=== PATIENT | female | born 1935 | race Caucasian/White ===

== ENCOUNTER 2017-02-20 18:24 | Inpatient (IN) | payer MEDICARE, OTHER ==
[~2017-02-20] VITALS: Ht 162.6 cm; Wt 61.2 kg
--- NOTE | 2017-02-20 18:25 | NUR ---
BBPA FROM HOME: LEFT HIP PAIN S/P Fx 2 DAYS AGO. BILATERAL KNEE PAIN.
--- NOTE | 2017-02-20 18:55 | NUR ---
EKG IN PROGRESS
--- NOTE | 2017-02-20 18:58 | NUR ---
REPULPING SUPERVISOR AT BEDSIDE
[2017-02-20] MEDS ORDERED: MORPHINE SULFATE INJ 2 MG/ML DISP.SYRIN IV ONE (19:00)
[2017-02-20] MEDS ORDERED: ONDANSETRON HCL/PF - ER 4 MG/2 ML VIAL IV ONE (19:00)
[2017-02-20 19:17] LABS: BASOPHILS # (AUTO) 0.5 /CMM (0.0-0.2); EOSINOPHILS % (AUTO) 0.1 % (0.0-6.0); HEMATOCRIT 48 % (33-45); HEMOGLOBIN 16.2 g/dL (11.5-14.8); LYMPHOCYTES # (AUTO) 2.8 /CMM (0.8-4.8); LYMPHOCYTES % (AUTO) 23.2 % (20.0-44.0); MEAN CORPUSCULAR HEMOGLOBIN 29 PG (26.0-33.0); MEAN CORPUSCULAR HGB CONC 34 g/dl (31.0-36.0); MEAN CORPUSCULAR VOLUME 87 fL (82-100); MONOCYTES # (AUTO) 0.5 /CMM (0.1-1.30); NEUTROPHILS # (AUTO) 8.5 /CMM (1.8-8.9); NEUTROPHILS % (AUTO) 68.7 % (43.0-81.0); PLATELET COUNT (AUTO) 166 /CMM (150-450); RDW COEFFICIENT OF VARIATION 14.6 (11.5-15.0); RED BLOOD CELL COUNT(AUTO) 5.57 MIL/uL (4.0-5.2); WHITE BLOOD COUNT (AUTO) 12.3 K/uL (4.3-11.0)
[2017-02-20] MEDS ORDERED: ONDANSETRON HCL/PF 4 MG/2 ML VIAL ONE (19:25)
[2017-02-20 19:26] LABS: CALCIUM, SERUM 8.2 mg/dL (8.5-10.1); CARBON DIOXIDE 23 mmol/L (21-32); CHLORIDE 101 mmol/L (98-107); CREATININE 1.1 mg/dL (0.6-1.3); GLUCOSE 125 mg/dL (74-106); POTASSIUM 3.9 mmol/L (3.5-5.1); SODIUM SERUM 135 mmol/L (136-145); UREA NITROGEN, BLOOD 41 mg/dL (7-18)
[2017-02-20] MEDS ORDERED: MORPHINE SULFATE INJ 2 MG/ML DISP.SYRIN ONE (19:26)
[2017-02-20 19:59] LABS: INR 1.03 (0.87-1.13); PROTHROMBIN TIME 10.7 SECS (9.5-12.7)
--- NOTE | 2017-02-20 20:40 | NUR ---
CALLED [employer] SENIOR TAX ANALYST WAS PAGED.
--- NOTE | 2017-02-20 20:55 | NUR ---
RECEIVED REPORT FROM ED IN THE ER.
--- NOTE | 2017-02-20 20:55 | NUR ---
REPORT CALLED TO M/S BAKARI EDDY. WILL TRANSPORT PT TO M/S ROOM [id number]
[2017-02-20] MEDS ORDERED: IV NS 0.9% 1,000 ML BAG IV ONE (21:00)
--- NOTE | 2017-02-20 21:25 | NUR ---
FRONT DESK TEAM MEMBER NOTES PT ARRIVED ON TO THE UNIT AT 2124 VIA GURNEY. PT ACCOMPANIED BY HER DAUGHTERS. PT IS PRIMARILY PARAGUAYAN SPEAKER. PT IS S/P GROUND FALL 2X DAYS AGO. AT HOME XR SHOWED FX OF LEFT HIP. PT IS CURRENTLY ON 2L OF O2 VIA NASAL CANULA, PT SAT IS 94%. PT LUNGS SOUND DIMINISHED BILATERALLY. ALL PT BELONGINGS ARE ACCOUNTED FOR AND NOTED. PT HAS A SACRAL REDNESS, A SCRATCH ON HER LEFT GROIN AREA AND A BRUISE ON HER LEFT HIP. ALL DOCUMENTED AND PICTURES ARE PLACED IN CHART. ORIENTED PT TO THE UNIT AND USE OF THE CALL LIGHT BUTTON. SAFETY PRECAUTIONS IN PLACE, BED IN LOW, LOCKED POSITION X3 SIDE RAILS UP. CALL LIGHT WITHIN REACH. WILL CONTINUE TO MONITOR.
[2017-02-20 21:30] VITALS: BP 131/74
[2017-02-20] MEDS ORDERED: ACETAMINOPHEN 325 MG TABLET PO PRN (22:30)
[2017-02-20] MEDS ORDERED: MAGNESIUM HYDROXIDE 30 ML UDC PO PRN (22:30)
[2017-02-20] MEDS ORDERED: Z GUARD REMEDY 2 OZ OINT TP PRN (22:30)
[2017-02-20] MEDS ORDERED: MORPHINE SULFATE INJ 2 MG/ML DISP.SYRIN IV PRN (22:30)
[2017-02-20] MEDS ORDERED: ENOXAPARIN SODIUM 40 MG/0.4 ML DISP.SYRIN SQ SCH (22:30)
[2017-02-20] MEDS ORDERED: ONDANSETRON HCL/PF 4 MG/2 ML VIAL IVP PRN (22:30)
[2017-02-20] MEDS ORDERED: ZOLPIDEM TARTRATE 5 MG TABLET PO PRN (22:30)
[2017-02-20] MEDS ORDERED: ENOXAPARIN SODIUM 40 MG/0.4 ML DISP.SYRIN SQ ONE (22:46)
[2017-02-20] MEDS ORDERED: HYDROCODONE/APAP 5/325MG 1 EACH TABLET ONE (23:08)
[2017-02-20] MEDS: IV NS 0.9% 1,000 ML IV PRN (23:33)
[2017-02-20] MEDS: HYDROCODONE/APAP 5/325MG 1 EACH TABLET PO PRN (23:36)
[2017-02-21] MEDS ORDERED: LEVOFLOXACIN 500 MG /D5W 100ML 500 MG in PREMIX 1 EA IV SCH (01:30)
[2017-02-21] MEDS ORDERED: IPRATROPIUM NEB FS 0.5 MG/2.5 ML AMPUL.NEB NEB PRN (01:30)
[2017-02-21] MEDS ORDERED: ALBUTEROL FS 2.5 MG/0.5 ML VIAL.NEB NEB PRN (01:30)
[2017-02-21] MEDS ORDERED: LEVOFLOXACIN 500 MG /D5W 100ML 100 ML IV ONE (01:39)
[2017-02-21] MEDS ORDERED: IPRATROPIUM NEB FS 0.5 MG/2.5 ML AMPUL.NEB ONE (03:05)
[2017-02-21] MEDS ORDERED: ACETYLCYSTEINE 10% SOLN 400 MG/4 ML VIAL ONE (03:05)
[2017-02-21] MEDS: ACETYLCYSTEINE 10% SOLN 400 MG/4 ML VIAL NEB SCH ×4 (03:06→23:30)
[2017-02-21 04:00] VITALS: BP 116/52
[2017-02-21 06:25] LABS: EOSINOPHILS % (AUTO) 0.1 % (0.0-6.0); HEMATOCRIT 46 % (33-45); HEMOGLOBIN 15.5 g/dL (11.5-14.8); LYMPHOCYTES # (AUTO) 0.9 /CMM (0.8-4.8); LYMPHOCYTES % (AUTO) 6.6 % (20.0-44.0); MEAN CORPUSCULAR HEMOGLOBIN 30 PG (26.0-33.0); MEAN CORPUSCULAR HGB CONC 34 g/dl (31.0-36.0); MEAN CORPUSCULAR VOLUME 88 fL (82-100); MONOCYTES # (AUTO) 0.2 /CMM (0.1-1.30); MONOCYTES % (AUTO) 1.4 % (2.0-12.0); NEUTROPHILS # (AUTO) 12.6 /CMM (1.8-8.9); NEUTROPHILS % (AUTO) 91.9 % (43.0-81.0); PLATELET COUNT (AUTO) 153 /CMM (150-450); RDW COEFFICIENT OF VARIATION 15.2 (11.5-15.0); RED BLOOD CELL COUNT(AUTO) 5.26 MIL/uL (4.0-5.2); WHITE BLOOD COUNT (AUTO) 13.7 K/uL (4.3-11.0)
[2017-02-21 06:47] LABS: CALCIUM, SERUM 7.9 mg/dL (8.5-10.1); CARBON DIOXIDE 23 mmol/L (21-32); CHLORIDE 103 mmol/L (98-107); CREATININE 1.4 mg/dL (0.6-1.3); GLUCOSE 151 mg/dL (74-106); MAGNESIUM 2.1 mg/dL (1.8-2.4); PHOSPHORUS 5.4 mg/dL (2.5-4.9); POTASSIUM 4.5 mmol/L (3.5-5.1); SODIUM SERUM 136 mmol/L (136-145); UREA NITROGEN, BLOOD 50 mg/dL (7-18)
[2017-02-21 06:53] LABS: CHOLESTEROL 128 mg/dL (<200); HDL CHOLESTEROL 49 mg/dL (40-60); LDL 63 mg/dL (0-99); TRIGLYCERIDES 102 mg/dL (30-150)
--- NOTE | 2017-02-21 06:55 | NUR ---
RN CLOSING NOTES PT RESTING IN BED. PT IS PRIMARILY BULGARIAN SPEAKER. PT IS S/P GROUND FALL 2X DAYS AGO. PT IS CURRENTLY ON 3L OF O2 VIA NASAL CANULA. PT LUNGS SOUND DIMINISHED BILATERALLY. PT TELE MONITORED AFIB/ AFLUTTER. PT HAS L FA #22 IV RUNNING NS @75ML/HR, PT TOLERATING FLUIDS WELL. SAFETY PRECAUTIONS IN PLACE, BED IN LOW, LOCKED POSITION X3 SIDE RAILS UP. CALL LIGHT WITHIN REACH. WILL ENDORSE TO DAYSALFT NURSE FOR CONTINUITY OF CARE.
[2017-02-21 08:00] VITALS: BP 113/51
[2017-02-21] MEDS ORDERED: DULO30CA2 PO (08:54)
[2017-02-21] MEDS ORDERED: VALS80TA2 PO (08:54)
[2017-02-21] MEDS ORDERED: ESOM40CA PO (08:54)
[2017-02-21] MEDS ORDERED: CELE200C PO (08:54)
[2017-02-21] MEDS ORDERED: OMEG-167 PO (08:55)
[2017-02-21 09:51] LABS: THYROID STIMULATING HORMONE 4.851 uIU/mL (0.358-3.74)
[2017-02-21 10:33] LABS: TROPONIN I 0.07 ng/mL (0.00-0.056)
[2017-02-21 11:42] LABS: ABG BASE EXCESS -2.3 mmol/L; ABG OXYGEN SATURATION 87.8 % (92.0-98.5); ABG PCO2 37.2 mmHg (35.0-45.0); ABG PH 7.391 (7.350-7.450); ABG PO2 56.3 mmHg (75.0-100.0); AaDO2 48.9 mmHg; COHb 0.6 % (0.5-1.5); MetHb 0.4 % (0.0-1.5); O2Hb 86.9 % (94.0-97.0); SITE, ABG Right Radial; VENT MODE, BG ROOM AIR
[2017-02-21] MEDS: IV NS 0.9% 1,000 ML IV PRN (12:13)
--- NOTE | 2017-02-21 15:30 | NUR ---
DR. PRATHER,DR. KATZ,DR. LONG IN TO SEE PT. INITIALLY NPO FOR POSSIBLE SURG. TODAY THEN SWITCHED TO TOMORROW.RAMÓNRERIC AWARE AND SPOKE TO DR. LONG.PT. APPEARS FAIRLY COMFORTABLE DVT PUMP TO RT. LEG ONLY.DR. PRATHER CALLED MIDDAY REGARDING SLIGHTLY ELEVATED TROPONIN.CLEARED PT. FOR SURGERY.CONSENT SIGNED VIA TELEPHONE PER DTR. ROMO.
[2017-02-21 16:00] VITALS: BP 149/68
--- NOTE | 2017-02-21 19:30 | NUR ---
RN OPENING NOTES PATIENT IS IN BED, ALERT AND ORIENTEDX2, COLOMBIAN/ALBANIAN SPEAKING. FAMILY PRESENT AT BEDSIDE. VS STABLE. NO C/O PAIN AT THIS TIME. NO SOB NOTED. RESPIRATIONS EVEN AND UNLABORED. ON 3L OF O2 VIA NASAL CANULA. IV ACCESS ON L FA 22G PATENT AND INTACT, INFUSING NS @75ML/HR, NO REDNESS OR INFILTRATION NOTED. PATIENT IS NPO STARTING MIDNIGHT DUE TO SURGERY. CONSENT SIGNED. BED IN LOW AND LOCKED POSITION, SIDE RAILSX2. CALL LIGHT WITHIN EASY REACH. WILL CONTINUE TO MONITOR AND ASSESS DURING THE SHIFT.
[2017-02-21 20:00] VITALS: BP 137/56
[2017-02-21] MEDS: ENOXAPARIN SODIUM 40 MG/0.4 ML DISP.SYRIN SQ SCH (20:59)
--- NOTE | 2017-02-21 21:00 | NUR ---
RN NOTES HOLD DANNYX. PATIENT IS HAVING SURGERY TOMORROW MORNING.
[2017-02-22] VITALS (25 sets, daily range): BP systolic 90–156; BP diastolic 42–128
[2017-02-22] MEDS: IV NS 0.9% 1,000 ML IV PRN ×3 (01:17→18:19)
[2017-02-22] MEDS: LEVOFLOXACIN 250 MG /D5W 50 ML 250 MG in PREMIX 1 EA IV SCH (01:31)
[2017-02-22] MEDS: MORPHINE SULFATE INJ 4 MG/ML DISP.SYRIN IV PRN (02:15)
--- NOTE | 2017-02-22 02:15 | NUR ---
RN NOTES PATIENT C/O PAIN AT LEFT HIP. MORPHINE 2 MG/0.5 ML ADMINISTERED IV PUSH PRN. CONTINUE TO MONITOR.
[2017-02-22 06:29] LABS: BASOPHILS # (AUTO) 0.1 /CMM (0.0-0.2); BASOPHILS % (AUTO) 0.4 % (0.0-2.0); EOSINOPHILS % (AUTO) 0.2 % (0.0-6.0); HEMATOCRIT 39 % (33-45); HEMOGLOBIN 13.1 g/dL (11.5-14.8); LYMPHOCYTES # (AUTO) 1.4 /CMM (0.8-4.8); LYMPHOCYTES % (AUTO) 8.6 % (20.0-44.0); MEAN CORPUSCULAR HEMOGLOBIN 29 PG (26.0-33.0); MEAN CORPUSCULAR HGB CONC 34 g/dl (31.0-36.0); MEAN CORPUSCULAR VOLUME 88 fL (82-100); MONOCYTES # (AUTO) 0.1 /CMM (0.1-1.30); MONOCYTES % (AUTO) 0.4 % (2.0-12.0); NEUTROPHILS # (AUTO) 14.5 /CMM (1.8-8.9); NEUTROPHILS % (AUTO) 90.4 % (43.0-81.0); PLATELET COUNT (AUTO) 118 /CMM (150-450); RDW COEFFICIENT OF VARIATION 14.9 (11.5-15.0); RED BLOOD CELL COUNT(AUTO) 4.45 MIL/uL (4.0-5.2); WHITE BLOOD COUNT (AUTO) 16.1 K/uL (4.3-11.0)
--- NOTE | 2017-02-22 07:01 | NUR ---
RN CLOSING NOTES PATIENT IS SLEEPING IN BED, EASY TO AROUSE, ALERT AND ORIENTEDX2, BRIT[place]ER/ROMANSH SPEAKING. VS STABLE. NO C/O PAIN AT THIS TIME. NO SOB NOTED. RESPIRATIONS EVEN AND UNLABORED. ON 3L OF O2 VIA NASAL CANULA. IV ACCESS ON L FA 22G PATENT AND INTACT, INFUSING NS @75ML/HR, NO REDNESS OR INFILTRATION NOTED. PATIENT IS NPO STARTING MIDNIGHT DUE TO SURGERY. CONSENT SIGNED. ALL NEEDS ARE MET AND MEDICATIONS GIVEN PER MD ORDER. BED IN LOW AND LOCKED POSITION, SIDE RAILSX2. CALL LIGHT WITHIN EASY REACH. WILL ENDORSE TO RN DAY SHIFT FOR REJI.
[2017-02-22 07:06] LABS: TROPONIN I 0.061 ng/mL (0.00-0.056)
--- NOTE | 2017-02-22 07:30 | NUR ---
MS RN OPENING NOTES RECEIVED PATIENT IN STABLE CONDITION. IN NO APPARENT DISTRESS. BEDSIDE RAILS ARE UP X2. BED IS LOCKED AND LOWERED. WILL CONTINUE TO MONITOR. CALL LIGHT IS WITHIN REACH.
[2017-02-22] MEDS: ACETYLCYSTEINE 10% SOLN 400 MG/4 ML VIAL NEB SCH ×3 (07:35→23:30)
[2017-02-22 07:41] LABS: ALANINE AMINOTRANSFERASE 14 U/L (12-78); ALKALINE PHOSPHATASE 58 U/L (46-116); ASPARTATE AMINOTRANSFERASE 30 U/L (15-37); BILIRUBIN,TOTAL 0.9 mg/dL (0.2-1.0); CALCIUM, SERUM 7.7 mg/dL (8.5-10.1); CARBON DIOXIDE 24 mmol/L (21-32); CHLORIDE 110 mmol/L (98-107); GLUCOSE 100 mg/dL (74-106); POTASSIUM 4.3 mmol/L (3.5-5.1); SODIUM SERUM 144 mmol/L (136-145); TOTAL PROTEIN, SERUM 5.7 g/dL (6.4-8.2); UREA NITROGEN, BLOOD 42 mg/dL (7-18)
--- NOTE | 2017-02-22 07:52 | NUR ---
MS/RN OPENING NOTE PATIENT IN BED IN STABLE CONDITION. A/O X 1-2, WITH EPISODES OF CONFUSION. NO SIGNS OF ACUTE DISTRESS. NO COMPLAIN OF PAIN OR DISCOMFORT. ALL NEEDS ATTENDED TO. CALL LIGHT WITHIN REACH. WILL CONTINUE TO MONITOR TO ENSURE SAFETY.
--- NOTE | 2017-02-22 08:00 | NUR ---
PATIENT TAKEN DOWN TO OPERATION ROOM FOR SURGERY
[2017-02-22] MEDS ORDERED: BACITRACIN 50000 UNITS/VIAL ONE (08:11)
[2017-02-22] MEDS ORDERED: BUPIVACAINE 0.5 % PF 150 MG/30 ML VIAL ONE (08:11)
[2017-02-22 08:40] LABS: PHOSPHORUS 2.9 mg/dL (2.5-4.9)
[2017-02-22] MEDS ORDERED: FENTANYL PF 100MCG/2ML AMPUL ONE (10:23)
[2017-02-22] MEDS ORDERED: ALBUTEROL FS 2.5 MG/3 ML VIAL.NEB ONE (10:40)
[2017-02-22] MEDS ORDERED: IPRATROPIUM NEB FS 0.5 MG/2.5 ML AMPUL.NEB ONE (10:40)
[2017-02-22] MEDS ORDERED: ETOMIDATE 2 MG/ML VIAL ONE (11:00)
--- NOTE | 2017-02-22 11:38 | NUR ---
GAVE REPORT TO ICU NURSE. PATIENT DID NOT RETURN TO [facility] AFTER SURGERY. PATIENT IS NOW IN ICU.
[2017-02-22 12:05] LABS: HEMOGLOBIN 12.7 g/dL (11.5-14.8)
[2017-02-22] MEDS: PROPOFOL 10MG/ML 50ML 50 ML IV PRN ×3 (12:56→23:25)
[2017-02-22] MEDS ORDERED: IV NS 0.9% 500 ML IV ONE (13:30)
[2017-02-22 13:59] LABS: ABG BASE EXCESS -5.8 mmol/L; ABG OXYGEN SATURATION 95.1 % (92.0-98.5); ABG PCO2 34.7 mmHg (35.0-45.0); ABG PH 7.355 (7.350-7.450); ABG PO2 82.2 mmHg (75.0-100.0); AaDO2 163.1 mmHg; COHb 0.3 % (0.5-1.5); MetHb 0.5 % (0.0-1.5); O2Hb 94.3 % (94.0-97.0); PEEP,BG 0 cm H2O; SITE, ABG Right Radial; VENT MODE, BG AC 14 500 40% +0; VT, ABG 500 mL
[2017-02-22] MEDS: methylPREDNISolone SOD SUCC 125 MG/2ML VIAL IV SCH ×2 (14:05→21:31)
--- NOTE | 2017-02-22 14:05 | NUR ---
RT NOTE PT RECEIVED INTUBATED FROM O.R. 7.0 ETT 23 CM AT LIP. SETTINGS PRESCRIBED. ALARMS SET PER PROTOCOL AND AUDIBLE. VENT PLUGGED IN TO RED OUTLET. AMBU BAG AT BED SIDE. NO DISTRESS NOTED. WILL CONTINUE TO MONITOR. Addendum: 02/22/17 at 1407 by YIN RAMOS RT Amended: Links added.
[2017-02-22] MEDS: ANCEF 1 GM/50 ML D5W IV SCH ×2 (16:39)
[2017-02-22 16:56] LABS: POTASSIUM 4.3 mmol/L (3.5-5.1)
--- NOTE | 2017-02-22 19:30 | NUR ---
PATENT LAWYER RCD PT W/DX S/P LEFT HIP HEMIARTHROPLASTY; PT SEDATED ON PROPOFOL 20 MCG/KG/MIN; PT WAKES UP EASILY DURING ORAL CARE; CONTINUE TO MONITOR. NSR ON MONITOR. TOLERATING PRESCRIBED VENT SETTINGS. SU CATHETER IN PLACE WITH ADEQUATE AMOUNT OF YELLOW URINE. FLACC 0/10. CONTINUE TO MONITOR.
[2017-02-22] MEDS: ENOXAPARIN SODIUM 40 MG/0.4 ML DISP.SYRIN SQ SCH (21:32)
--- NOTE | 2017-02-22 21:38 | NUR ---
PT RECEIVED ON VENT VIA CHARTED SETTINGS AND ROUTE. TOLERATING VENT SETTINGS. AMBU BAG AT BEDSIDE, ALARMS SET AND AUDIBLE. VENT PLUGGED INTO RED OUTLET. NO RESP DISTRESS NOTED. WILL CONTINUE TO MONITOR Addendum: 02/22/17 at 2139 by NIRAJ BASILIO RT Amended: Links added.
[2017-02-23] VITALS (30 sets, daily range): BP systolic 81–149; BP diastolic 22–101
[2017-02-23] MEDS: ANCEF 1 GM/50 ML D5W IV SCH ×6 (01:14→08:47)
[2017-02-23] MEDS: LEVOFLOXACIN 250 MG /D5W 50 ML 250 MG in PREMIX 1 EA IV SCH (02:05)
--- NOTE | 2017-02-23 03:00 | NUR ---
CASINO FLOOR WALKER PT BEGAN WAKING UP AND REACHING FOR ET TUBE AFTER COMPLETE BED BATH; PT NOT FOLLOWING COMMANDS. INCREASED PROPOFOL BY 5 MCG/KG/MIN PER PROTOCOL UNTIL PT ADEQUATELY SEDATED; SOFT WRIST BL RESTRAINTS ALSO APPLIED TO PREVENT SELF EXTUBATION.
--- NOTE | 2017-02-23 04:00 | NUR ---
MEDICAL LANGUAGE SPECIALIST PT BECAME HYPOTENSIVE; BEGAN DECREASING PROPOFOL PER POLICY. CONTINUE TO MONITOR.
[2017-02-23] MEDS: PROPOFOL 10MG/ML 50ML 50 ML IV PRN (04:03)
[2017-02-23] MEDS: methylPREDNISolone SOD SUCC 125 MG/2ML VIAL IV SCH ×3 (05:11→20:31)
[2017-02-23] MEDS: IV NS 0.9% 1,000 ML IV PRN ×2 (06:59→17:40)
--- NOTE | 2017-02-23 07:30 | NUR ---
CRAFT SUPERINTENDENT RECEIVED PATIENT SEDATED AT 20 MCGS WITH ON GOING IVF NS AT 100,L/HR AFEBRILE STILL ON MECHANICAL VENTILATORY SUPPORT AND ON RESTARTING BILATERAL WRIST MAINTAINED ON NPO WEANING TRIAL LATER MONITORED CLOSELY
[2017-02-23] MEDS: ACETYLCYSTEINE 10% SOLN 400 MG/4 ML VIAL NEB SCH ×3 (07:35→23:30)
[2017-02-23 10:19] LABS: ABG BASE EXCESS -3.6 mmol/L; ABG PCO2 31.2 mmHg (35.0-45.0); ABG PH 7.425 (7.350-7.450); ABG PO2 100.4 mmHg (75.0-100.0); AaDO2 148.9 mmHg; COHb 0.3 % (0.5-1.5); O2Hb 96.7 % (94.0-97.0); PEEP,BG 5 cm H2O; SITE, ABG Right Radial; VT, ABG 500 mL
--- NOTE | 2017-02-23 10:43 | NUR ---
RT PER DR BOYLE ORDER PATIENT WEANED AND EXTUBATED. PLACED ON 5L N/C TITRATE TO KEEP SPO2 ABOVE 92%.
[2017-02-23 11:04] LABS: CALCIUM, SERUM 7.7 mg/dL (8.5-10.1); CARBON DIOXIDE 23 mmol/L (21-32); CHLORIDE 115 mmol/L (98-107); CREATININE 0.8 mg/dL (0.6-1.3); GLUCOSE 117 mg/dL (74-106); POTASSIUM 4.5 mmol/L (3.5-5.1); SODIUM SERUM 143 mmol/L (136-145); UREA NITROGEN, BLOOD 33 mg/dL (7-18)
[2017-02-23 11:07] LABS: BASOPHILS % (AUTO) 0.4 % (0.0-2.0); HEMATOCRIT 32 % (33-45); HEMOGLOBIN 10.5 g/dL (11.5-14.8); LYMPHOCYTES # (AUTO) 0.7 /CMM (0.8-4.8); LYMPHOCYTES % (AUTO) 9.1 % (20.0-44.0); MEAN CORPUSCULAR HEMOGLOBIN 29 PG (26.0-33.0); MEAN CORPUSCULAR HGB CONC 33 g/dl (31.0-36.0); MEAN CORPUSCULAR VOLUME 88 fL (82-100); MONOCYTES # (AUTO) 0.1 /CMM (0.1-1.30); MONOCYTES % (AUTO) 0.8 % (2.0-12.0); NEUTROPHILS # (AUTO) 6.4 /CMM (1.8-8.9); NEUTROPHILS % (AUTO) 89.7 % (43.0-81.0); PLATELET COUNT (AUTO) 103 /CMM (150-450); RDW COEFFICIENT OF VARIATION 15.1 (11.5-15.0); WHITE BLOOD COUNT (AUTO) 7.2 K/uL (4.3-11.0)
[2017-02-23 11:08] LABS: MAGNESIUM 2.1 mg/dL (1.8-2.4); PHOSPHORUS 2.3 mg/dL (2.5-4.9)
--- NOTE | 2017-02-23 11:15 | NUR ---
BOARDING ROOM FIXER PATIENT IS EXTUBATED, SATURATION AT 100% ON 5 LITERS NASAL CANNULA SHE IS ALERT ORIENTED X 3 ICE CHIPS IS GIVEN DESIRED FAMILY IS AT BED SIDE VITAL SIGNS ARE NORMAL
[2017-02-23 12:26] LABS: LYMPHOCYTES % (MANUAL) 10 % (16-48); MONOCYTES % (MANUAL) 2 % (0-11.0); NEUTROPHILS % (MANUAL) 88 (42-76)
[2017-02-23] MEDS: ASPIRIN 81 MG TAB.CHEW PO SCH (12:44)
[2017-02-23] MEDS ORDERED: K PHOS NEUTRAL 250 MG TABLET PO ONE (14:00)
--- NOTE | 2017-02-23 19:25 | NUR ---
PALM GATHERER RCD PT POD #1 S/P LEFT HIP HEMIARTHROPLASTY; PT IS A/O x3 ABLE TO MAKE NEEDS KNOWN. NSR ON MONITOR. CLEAR LUNG SOUNDS ON O2 2L NC. TOLERATING DIET WELL. SU CATHETER DRAINING ADEQUATE AMOUNT OF YELLOW URINE. MICHELLE MIDLINE WITH NS @ 100 ML/HR. SURGICAL SITE C/D/I. PT REPOSITIONED. RENDERED ORAL CARE. PT DENIES PAIN. CONTINUE TO MONITOR.
[2017-02-23] MEDS: ENOXAPARIN SODIUM 40 MG/0.4 ML DISP.SYRIN SQ SCH (20:46)
[2017-02-24] VITALS (16 sets, daily range): BP systolic 111–152; BP diastolic 51–76
--- NOTE | 2017-02-24 | NUR ---
REWINDER OPERATOR HELPER PT DENIES PAIN. REPOSITIONED. RENDERED ORAL CARE. PT REMOVED NASAL CANNULA REFUSES TO PUT IT BACK ON. WILL CONTINUE TO MONITOR SATURATION.
[2017-02-24] MEDS: LEVOFLOXACIN 250 MG /D5W 50 ML 250 MG in PREMIX 1 EA IV SCH (02:12)
--- NOTE | 2017-02-24 04:00 | NUR ---
DIPPER AND DRIER COMPLETE BED BATH GIVEN. PT TOLERATED WELL. DENIES PAIN. CONTINUE TO MONITOR.
[2017-02-24] MEDS: IV NS 0.9% 1,000 ML IV PRN (04:41)
[2017-02-24] MEDS: methylPREDNISolone SOD SUCC 125 MG/2ML VIAL IV SCH (04:43)
[2017-02-24 05:48] LABS: EOSINOPHILS % (AUTO) 0.1 % (0.0-6.0); HEMATOCRIT 29 % (33-45); HEMOGLOBIN 10.1 g/dL (11.5-14.8); LYMPHOCYTES # (AUTO) 0.7 /CMM (0.8-4.8); LYMPHOCYTES % (AUTO) 11.2 % (20.0-44.0); MEAN CORPUSCULAR HEMOGLOBIN 31 PG (26.0-33.0); MEAN CORPUSCULAR HGB CONC 35 g/dl (31.0-36.0); MEAN CORPUSCULAR VOLUME 88 fL (82-100); MONOCYTES # (AUTO) 0.1 /CMM (0.1-1.30); NEUTROPHILS # (AUTO) 5.3 /CMM (1.8-8.9); NEUTROPHILS % (AUTO) 87.7 % (43.0-81.0); PLATELET COUNT (AUTO) 81 /CMM (150-450); RDW COEFFICIENT OF VARIATION 15.3 (11.5-15.0); RED BLOOD CELL COUNT(AUTO) 3.32 MIL/uL (4.0-5.2); WHITE BLOOD COUNT (AUTO) 6.2 K/uL (4.3-11.0)
[2017-02-24 06:11] LABS: CARBON DIOXIDE 21 mmol/L (21-32); CHLORIDE 115 mmol/L (98-107); CREATININE 0.7 mg/dL (0.6-1.3); GLUCOSE 131 mg/dL (74-106); PHOSPHORUS 2.4 mg/dL (2.5-4.9); POTASSIUM 4.5 mmol/L (3.5-5.1); SODIUM SERUM 143 mmol/L (136-145); UREA NITROGEN, BLOOD 29 mg/dL (7-18)
--- NOTE | 2017-02-24 07:00 | NUR ---
CONTACT CENTER REPRESENTATIVE- INITIAL NOTE RECEIVED PT A/O X3. ON ROOM AIR, RESPIRATIONS EVEN AND UNLABORED, NO SOB OR DISTRESS PRESENT. BEDSIDE MONITOR REVEALS SINUS RHYTHM. SU CATHETER PRESENT & DRAINING TO GRAVITY. MICHELLE MIDLINE RUNNING NS @ 100 ML/HR. LFA 22G HL FLUSHED, PATENT & INTACT. SAFETY MEASURES TAKEN: BED LOCKED AND IN LOW POSITION, SIDE RAILS UP X2, BED ALARM ON AND CALL LIGHT WITHIN REACH, WILL CONTINUE TO MONITOR.
[2017-02-24] MEDS: ACETYLCYSTEINE 10% SOLN 400 MG/4 ML VIAL NEB SCH (07:21)
[2017-02-24] MEDS: ASPIRIN 81 MG TAB.CHEW PO SCH (08:30)
[2017-02-24] MEDS: HYDROCODONE/APAP 5/325MG 1 EACH TABLET PO PRN (08:51)
--- NOTE | 2017-02-24 11:30 | NUR ---
1130- REPORT GIVEN TO PILOT SUBMERSIBLETANIA. PT TO TRANSFER TO [address] [place] [address] ROOM [facility][note 3]. 1145- PT TRANSFERRED TO [facility] ROOM [facility][note 3]. ALL BELONGINGS SENT WITH PT.
--- NOTE | 2017-02-24 12:00 | NUR ---
telecommunications administrator notes Received report from ICU nurse regarding patient. Patient is alert and oriented x 3. no complaint of pain or discomfort at this time. On tele monitor SR heart rate of 81. IV intact and patent HL only. Abduction pillow in placed. Kept patient clean and comfortable in bed, call light with in patient reach, will continue to monitor accordingly.
--- NOTE | 2017-02-24 13:15 | NUR ---
RT NOTE DAILY ABG CANCELLED. MD BARCLAY AGREED IT IS NOT NEEDED. Addendum: 02/24/17 at 1316 by YIN RAMOS RT Amended: Links added.
[2017-02-24] MEDS ORDERED: K PHOS NEUTRAL 250 MG TABLET PO ONE (15:30)
--- NOTE | 2017-02-24 19:25 | NUR ---
ms rn closing notes All needs provided, attended, and anticipated. kept patient clean and comfortable in bed, call light with in patient reach, endorsed to next shift RN to continue care.
--- NOTE | 2017-02-24 20:00 | NUR ---
MS/RN RECEIVE PATIENT AWAKE, ALERT, ORIENTED, COMFORTABLE, NO C/O PAIN, NO DISTRESS NOTED, CALL LIGHT IN REACH. WILL MONITOR.
[2017-02-25] VITALS: BP 143/64
[2017-02-25 04:00] VITALS: BP 145/65
[2017-02-25] MEDS: LEVOFLOXACIN (250MG) 250 MG TABLET PO SCH (06:05)
--- NOTE | 2017-02-25 06:18 | NUR ---
TELE/RN PATIENT IS AWAKE AT THIS TIME, COMFORTABLE, NO C/O PAIN, NO DISTRESS NOTED, ALL NEEDS ATTENDED AT THIS TIME. WILL CONTINUE TO MONITOR.
--- NOTE | 2017-02-25 06:40 | NUR ---
TELE/RN DRY BLOOD NOTED IN THE DRESSING. DRESSING WAS CHANGED. XAVI NOTED AT SURGICAL WOUND WITH VERY SMALL BLOOD AT HE DISTAL PORTION OF THE XAVI. WILL MONITOR.
[2017-02-25 06:46] LABS: HEMATOCRIT 31 % (33-45); HEMOGLOBIN 10.3 g/dL (11.5-14.8); LYMPHOCYTES # (AUTO) 0.7 /CMM (0.8-4.8); LYMPHOCYTES % (AUTO) 6.8 % (20.0-44.0); MEAN CORPUSCULAR HEMOGLOBIN 30 PG (26.0-33.0); MEAN CORPUSCULAR HGB CONC 34 g/dl (31.0-36.0); MEAN CORPUSCULAR VOLUME 89 fL (82-100); MONOCYTES # (AUTO) 0.5 /CMM (0.1-1.30); MONOCYTES % (AUTO) 4.5 % (2.0-12.0); NEUTROPHILS # (AUTO) 9.2 /CMM (1.8-8.9); NEUTROPHILS % (AUTO) 88.7 % (43.0-81.0); PLATELET COUNT (AUTO) 86 /CMM (150-450); RDW COEFFICIENT OF VARIATION 16.4 (11.5-15.0); RED BLOOD CELL COUNT(AUTO) 3.45 MIL/uL (4.0-5.2); WHITE BLOOD COUNT (AUTO) 10.3 K/uL (4.3-11.0)
[2017-02-25 07:02] LABS: CALCIUM, SERUM 8.2 mg/dL (8.5-10.1); CARBON DIOXIDE 24 mmol/L (21-32); CHLORIDE 110 mmol/L (98-107); CREATININE 0.6 mg/dL (0.6-1.3); GLUCOSE 112 mg/dL (74-106); PHOSPHORUS 2.8 mg/dL (2.5-4.9); POTASSIUM 4.3 mmol/L (3.5-5.1); SODIUM SERUM 138 mmol/L (136-145); UREA NITROGEN, BLOOD 32 mg/dL (7-18)
--- NOTE | 2017-02-25 07:30 | NUR ---
TELE/RN OPENING NOTE RECEIVED IN BED AWAKE. ALERT AND ORIENTED X2. REDIRECTION PROVIDED. RESPIRATION REGULAR AND UNLABORED. DENIES SOB, PAIN. IN NO APPARENT DISTRESS. SIDE RAIL UP X2. BED LOW AND LOCKED. CALL LIGHT WITHIN REACH. WILL CONTINUE TO MONITOR.
[2017-02-25] MEDS: ACETYLCYSTEINE 10% SOLN 400 MG/4 ML VIAL NEB SCH ×3 (07:35→23:30)
[2017-02-25 08:00] VITALS: BP 156/70
[2017-02-25] MEDS: ASPIRIN 81 MG TAB.CHEW PO SCH (08:39)
[2017-02-25 09:41] LABS: BAND % (MANUAL) 1 % (0.0-5.0); LYMPHOCYTES % (MANUAL) 3 % (16-48); MONOCYTES % (MANUAL) 6 % (0-11.0); NEUTROPHILS % (MANUAL) 90 (42-76)
[2017-02-25] MEDS ORDERED: FUROSEMIDE 20 MG/2 ML VIAL IV ONE (13:00)
[2017-02-25] MEDS ORDERED: METOPROLOL TARTRATE INJ 5 MG/5 ML AMPUL IVP ONE (13:00)
[2017-02-25 13:10] VITALS: BP 118/60
--- NOTE | 2017-02-25 13:10 | NUR ---
LICENSED MASSAGE THERAPIST NOTES PT IN BED, DENIES PAIN OR ANY DISCOMFORT, ASSISTED IN TURNING AND REPOSITIONING, PERINEAL CARE PROVIDED, NOTED WITH HR OF 180, UNCONTROLLED AFIB ON THE MONITOR, DR. HERNANDEZ INFORMED, ORDERS MADE, CHARGE NURSE HUNTER INFORMED AND CLARIFIED ORDERS WITH DR. HERNANDEZ, PER MD, OK TO GIVE METOPROLOL PO AND IV ON THE FLOOR IN THE MEANTIME WHILE WAITING FOR ICU BED, PT IN BED, RESTING, DENIES ANY PAIN, BREATHING PATTERN NORMAL AND NOT LABORED, 02 SAT AT 95% ON 2LPM VIA NASAL CANULA, WILL CONTINUE TO MONITOR.
[2017-02-25] MEDS: METOPROLOL TARTRATE 25 MG TABLET PO SCH ×2 (13:45→21:00)
[2017-02-25] MEDS ORDERED: AMIODARONE 150 MG in IV D5W 100 ML IV ONE (14:00)
[2017-02-25 16:00] VITALS: BP 118/59
[2017-02-25] MEDS: RIVAROXABAN 15 MG TABLET PO SCH (17:40)
--- NOTE | 2017-02-25 18:28 | NUR ---
DAILY ABG CANCELLED PER .
--- NOTE | 2017-02-25 18:30 | NUR ---
TELE/RN CLOSING NOTE PATIENT IN BED AWAKE. ALERT AND ORIENTED X2. RESPIRATION REGULAR AND UNLABORED. DENIES SOB. DENIES PAIN. CONTROLLED AFIB AT 95. IN NO APPARENT DISTRESS. GOOD AND GENTLE SKIN CARE RENDERED. ABDUCTOR PILLOW IN PLACE. BED LOW AND LOCKED. SIDE RAIL X3 UP. CALL LIGHT WITHIN REACH. CALLED [facility] AND GAVE REPORT OF JOSE CARLOS. WAITING FOR PATIENT TRANSFER TO [facility].
--- NOTE | 2017-02-25 20:00 | NUR ---
RN INITIAL NOTES - TRANSFER FROM RECEIVED PATIENT IN BED, AWAKE, ALERT AND ORIENTED X2-3 [place]ER[place] LEONEAN SPEAKING, FAMILY MEMBERS AT BEDSIDE. PATIENT TRANSFERRED FROM , UPGRADED TO [facility] STATUS FOR AMIODARONE DRIP. PATIENT PLACED ON TELEMETRY MONITORING, REVEALING AFIB, CONTROLLED RATE FROM 90-105. TEACHING REGARDING AMIODARONE DRIP RENDERED, WITH VERBALIZATION OF UNDERSTANDING. WILL INITIATE AMIODARONE DRIP. LEFT UPPER ARM MIDLINE PATENT AND INTACT. WILL CONTINUE TO CLOSELY MONITOR
[2017-02-25] MEDS: AMIODARONE 900 MG in IV D5W 482 ML IV PRN (20:43)
--- NOTE | 2017-02-26 | NUR ---
RN NOTES PATIENT NOTED TO HAVE INCREASED ALOC, REORIENTED/REDIRECTED NEEDED
[2017-02-26] MEDS: MORPHINE SULFATE INJ 4 MG/ML DISP.SYRIN IV PRN ×3 (00:22→16:32)
[2017-02-26] MEDS: LEVOFLOXACIN (250MG) 250 MG TABLET PO SCH (02:50)
--- NOTE | 2017-02-26 04:00 | NUR ---
RN NOTES PATIENT NOTED TO PULL OUT MIDLINE. PATIENT IS UNSURE WHY SHE PULLED IT OUT. NEW PERIPHERAL IV STARTED AND AMIODARONE DRIP RESUMED IMMEDIATELY
--- NOTE | 2017-02-26 07:00 | NUR ---
RN CLOSING NOTES PATIENT SLEEPING AT THIS TIME. RESTRAINTS IN PLACE, CHECKED FOR CIRCULATION. WILL ENDORSE THE PATIENT TO THE AM SHIFT NURSE FOR REJI. CONTINUES ON AMIODARONE DRIP, SINUS RHYTHM SINCE 529.
--- NOTE | 2017-02-26 07:12 | NUR ---
RN INITIAL NOTES: REC'D PT AWAKE ON BED, A/O X1-2 W/ CONFUSION, NOT IN ANY DISTRESS. ON NC AT 2LPM, NO SOB. ON TELEMONITOR, SR W/ HR 83 BPM. HAS L WRIST G20, PL, PATENT & INTACT W/ NO S/SX OF INFECTION/INFILTRATION NOTED, W/ AMIODARONE DRIP AT 0.5 MCG/HR INFUSING WELL. HAS ABDUCTION PILLOW ON, S/P L HIP HEMIARTHROPLASTY. HAS BILATERAL SOFT WRIST RESTRAINTS ON D/T PULLING OUT OF LINES. PT REORIENTED. PROVIDED COMFORT & SAFETY MEASURES. BED KEPT LOW & IN LOCKED POS. CALL LIGHT PLACED W/IN REACH. WILL CONTINUE TO MONITOR AND ATTEND PT NEEDS.
[2017-02-26 07:19] LABS: CALCIUM, SERUM 8.5 mg/dL (8.5-10.1); CARBON DIOXIDE 27 mmol/L (21-32); CHLORIDE 105 mmol/L (98-107); CREATININE 0.8 mg/dL (0.6-1.3); GLUCOSE 115 mg/dL (74-106); POTASSIUM 4.2 mmol/L (3.5-5.1); SODIUM SERUM 136 mmol/L (136-145); UREA NITROGEN, BLOOD 32 mg/dL (7-18)
[2017-02-26] MEDS: ACETYLCYSTEINE 10% SOLN 400 MG/4 ML VIAL NEB SCH ×3 (07:35→23:30)
[2017-02-26 08:00] VITALS: BP 148/76
[2017-02-26] MEDS: METOPROLOL TARTRATE 25 MG TABLET PO SCH ×2 (09:23→21:58)
[2017-02-26 12:00] VITALS: BP 135/44
[2017-02-26] MEDS: AMIODARONE 900 MG in IV D5W 482 ML IV PRN (15:07)
[2017-02-26] MEDS: HYDROCODONE/APAP 5/325MG 1 EACH TABLET PO PRN (15:07)
[2017-02-26 16:00] VITALS: BP 142/38
[2017-02-26] MEDS: AMIODARONE HCL 200 MG TABLET PO SCH ×2 (16:27→21:58)
[2017-02-26] MEDS: RIVAROXABAN 15 MG TABLET PO SCH (16:30)
--- NOTE | 2017-02-26 17:39 | NUR ---
RN NOTES: PT SEEN & EXAMINED BY DR. HERNANDEZ W/ ORDERS MADE & CARRIED OUT.
--- NOTE | 2017-02-26 17:45 | NUR ---
RN NOTES: PER DR. BARCLAY DC ALL CXR ORDERS.
[2017-02-26] MEDS: BOOST PLUS FOOD-VANILLA 237 ML BOX PO SCH (17:51)
--- NOTE | 2017-02-26 18:52 | NUR ---
RN CLOSING NOTES: NO ACUTE CHANGES NOTED W/IN SHIFT. PT TOLERATED NC AT 2LPM, NO SOB. ON TELEMONITOR, STILL SR. L WRIST G20, SL, KEPT PATENT & INTACT W/ NO S/SX OF INFECTION/INFILTRATION NOTED, OFF AMIODARONE DRIP. ABDUCTION PILLOW KEPT ON, S/P L HIP HEMIARTHROPLASTY. STILL HAS BILATERAL SOFT WRIST RESTRAINTS D/T PULLING OUT OF LINES. PT REORIENTED AT ALL TIMES. KEPT WELL RESTED. NEEDS ATTENDED. BED KEPT LOW & IN LOCKED POS. CALL LIGHT PLACED W/IN REACH. WILL ENDORSE TO PM RN FOR REJI.
--- NOTE | 2017-02-26 19:30 | NUR ---
TD RN NOTES RECEIVED PATIENT SLEEPING. NO S/S SOB, DIFFICULTY BREATHING OR PAIN. PATIENT WITH RESTRAINTS ON. REMOVED AND ALLOWED RANGE OF MOTION. PATIENT ON 2LPM NC TOLERATING WELL. SU CATH IN PLACE DRAINING WELL. PILLOW BETWEEN LEGS IN PLACE. PATIENT TELE NSR AT THIS TIME. PATIENT BED LOWERED AND LOCKED, RAILS UPX3 FOR SAFETY, DRINKS AND SNACKS OFFERED TO PATIENT. WILL ROUND PRN
[2017-02-26 20:00] VITALS: BP 113/57
--- NOTE | 2017-02-26 22:08 | NUR ---
td rn notes PATIENT IS CALM AND COOPERATIVE AT THIS TIME. REMOVED RESTRAINTS FOR BED BATH AND PATIENT IS NOT PULLING AT IV SITE. NO LONGER IVF RUNNING. PLACED SLEEVE ON LEFT ARM TO COVER IV SITE AND PATIENT RESTING WELL AT THIS TIME. NO RESTRAINTS ON. WILL MONITOR CLOSELY
[2017-02-27] VITALS: BP 147/40
[2017-02-27] MEDS: LEVOFLOXACIN (250MG) 250 MG TABLET PO SCH (02:36)
[2017-02-27] MEDS: HYDROCODONE/APAP 5/325MG 1 EACH TABLET PO PRN (02:36)
[2017-02-27 04:00] VITALS: BP 110/66
--- NOTE | 2017-02-27 06:34 | NUR ---
TD RN CLOSING PATIENT STABLE. ALL DUE MEDS GIVEN AND ALL NEEDS MET. PATIENT RESTING COMFORTABLY AT THIS TIME. PAIN CONTROLLED FLACC 0 AT THIS TIME. RAILS UPX3 BED LOWERED AND LOCKED, BED ALARM ON. PILLOW INBETWEEN LEGS. PATIENT TOLERATING WITHOUT RESTRAINTS. IV SITE COVERED WITH SLEEVE. WILL ENDORSE CARE TO RN FOR REJI
--- NOTE | 2017-02-27 07:28 | NUR ---
RN NOTES RECEIVED PT FROM PC MAINTENANCE TECHNICIAN IN STABLE CONDITION, A&0X3 WITH BRIEF PERIODS OF CONFUSION, PRIMARILY DANISH SPEAKING. ON 2L NC SATING WELL NO SOB OR DISTRESS NOTED. SR ON THE MONITOR HR IN THE 70S. SU DRAINING TO GRAVITY. LW20G IV SITE IN TACT NO IVF. BED LOCKED AND IN LOWEST POSITION, CALL LIGHT WITHIN REACH, SIDE RAILS UPX3, WILL CONT TO AMANDA.
[2017-02-27] MEDS: ACETYLCYSTEINE 10% SOLN 400 MG/4 ML VIAL NEB SCH ×2 (07:35→15:30)
[2017-02-27 08:00] VITALS: BP 131/42
[2017-02-27] MEDS: BOOST PLUS FOOD-VANILLA 237 ML BOX PO SCH (08:11)
[2017-02-27 08:13] VITALS: BP 131/42
[2017-02-27] MEDS: AMIODARONE HCL 200 MG TABLET PO SCH (08:13)
[2017-02-27] MEDS: METOPROLOL TARTRATE 25 MG TABLET PO SCH (08:13)
[2017-02-27] MEDS ORDERED: AMIO200T7 PO (13:35)
[2017-02-27] MEDS ORDERED: Rivaroxaban PO (13:35)
[2017-02-27] MEDS ORDERED: Boost Plus Food-Vanilla PO (13:35)
[2017-02-27] MEDS ORDERED: METO25TA20 PO (13:35)
--- NOTE | 2017-02-27 17:08 | NUR ---
RN NOTES REPORT GIVEN TO [facility]. PT DISCHARGED IN STABLE CONDITION VIA AMBULANCE. FAMILY MADE AWARE BY GEOPHYSICAL OPERATOR.
== END 2017-02-27 18:11 | DRG 469 ==
LOC: ER 18:29 → MED 21:26 → TELE 02-21 01:42 → MED 02-21 08:49 → ICU 02-22 11:23 → MED 02-24 11:50 → TELE 02-24 23:42 → TELE-TD 02-25 19:46 → MEDSG1 02-27 11:52
PROVIDERS: ADMIT Nurse Practitioner Acute Care; ATTEND Nurse Practitioner Acute Care
PROC: 0SRS0JZ Replacement of Left Hip Joint, Femoral Surface with Synthetic Substitute, Open Approach (ICD-10-PCS; principal; 2017-02-22 08:00)
DX: S72.002A Fracture of unspecified part of neck of left femur, initial encounter for closed fracture (principal); J96.01 Acute respiratory failure with hypoxia; I21.A1 Myocardial infarction type 2; I50.33 Acute on chronic diastolic (congestive) heart failure; N17.0 Acute kidney failure with tubular necrosis; I95.9 Hypotension, unspecified; D68.59 Other primary thrombophilia; D69.6 Thrombocytopenia, unspecified; E87.1 Hypo-osmolality and hyponatremia; J98.11 Atelectasis; E86.0 Dehydration; I48.0 Paroxysmal atrial fibrillation; I11.0 Hypertensive heart disease with heart failure; I25.2 Old myocardial infarction; Z79.01 Long term (current) use of anticoagulants; R73.9 Hyperglycemia, unspecified; J38.5 Laryngeal spasm; J06.9 Acute upper respiratory infection, unspecified; M47.9 Spondylosis, unspecified; I35.1 Nonrheumatic aortic (valve) insufficiency; W19.XXXA Unspecified fall, initial encounter; Y93.9 Activity, unspecified; Y92.009 Unspecified place in unspecified non-institutional (private) residence as the place of occurrence of the external cause
CPT/HCPCS: 36415; 36600; 71010-TC; 71045-TC; 73020; 73502; 80048-TC; 80053-TC; 80061-TC; 82306; 82803-TC; 83735-TC; 83880; 84100-TC; 84132-TC; 84439-TC; 84443-TC; 84484-TC; 85025-TC; 85027-TC; 85730-TC; 86850-TC; 87081-TC; 88305-TC; 93307-TC; 94003-TC; 97110-TC; 97112-TC; 97116-TC; 97530-TC; A4216; A4217; A4606; A6209; A6402; J0282; J0690; J1100; J1650; J1940; J1956; J2270; J2405; J2710; J2930; J3010; J3490; J7030; J7060; Z7610

== ENCOUNTER 2017-03-14 11:02 | Inpatient (IN) | payer MEDICARE, OTHER ==
[~2017-03-14] VITALS: Ht 160 cm; Wt 97.1 kg
[2017-03-14] VITALS (31 sets, daily range): BP systolic 51–124; BP diastolic 17–76
[~2017-03-14 11:02] MED LIST: AMIO200T7 PO; Boost Plus Food-Vanilla PO; ESOM40CA PO; METO25TA20 PO; OMEG-167 PO; Rivaroxaban PO
--- NOTE | 2017-03-14 11:05 | NUR ---
LUCA Araiza FROM [facility] C/O SOB, SKIN IS COOL AND DRY. RESP IS LABORED. PLACED ON THE MONITOR AND NR AT 15L/MIN. PLACED ON THE MONITOR. ASSISTED TO HOSPITAL GOWN. DR CASIANO AT BS FOR EVAL.
--- NOTE | 2017-03-14 11:12 | NUR ---
STARTED IVHL RFA 20G
--- NOTE | 2017-03-14 11:16 | NUR ---
INTUBATED BY DR CASIANO: 7.5, 22 LIP LINE.
--- NOTE | 2017-03-14 11:17 | NUR ---
VENT SETTINGS: 14/450/100/5
--- NOTE | 2017-03-14 11:19 | NUR ---
DR CASIANO AT FOR CENTRAL LINE INSERTION.
[2017-03-14] MEDS ORDERED: AMIN30LI4 PO (11:25)
[2017-03-14] MEDS ORDERED: METO25TA20 PO (11:25)
[2017-03-14] MEDS ORDERED: METH2.5T PO (11:25)
[2017-03-14] MEDS ORDERED: MULT-659 PO (11:25)
[2017-03-14] MEDS ORDERED: AMIO200T2 PO (11:25)
[2017-03-14] MEDS ORDERED: CELE-85 PO (11:25)
[2017-03-14] MEDS ORDERED: ACET-868 PO (11:25)
[2017-03-14] MEDS ORDERED: RIVA10TA PO (11:25)
[2017-03-14] MEDS ORDERED: ASCO500T9 PO (11:25)
--- NOTE | 2017-03-14 11:30 | NUR ---
RT REC PT IN RESP DISTRESS. INTUBATED WITH 7.5 ETT 22 AT LIP SECURED. BILATERAL CHEST RISE AND CO2 DETECTOR COLOR CHANGE. PLACED ON [facility] VENT AC/VC 450 14RR +5 100% O2. SX THICK YELLOW SECRETIONS AND SENT TO LAB TX GIVEN KRISTI WELL NO ADVERSE REACTION NOTED ATT. WILL CONTINUE TO MONITOR Addendum: 03/14/17 at 1619 by ANGELO CASANOVA RT Amended: Links added.
--- NOTE | 2017-03-14 11:45 | NUR ---
FOLE YCATHETER INSERTED, URINE SAMPLE SEND TO LAB
[2017-03-14] MEDS ORDERED: ETOMIDATE 2 MG/ML VIAL IV ONE (12:00)
[2017-03-14] MEDS ORDERED: PROPOFOL 100 ML IV PRN (12:00)
[2017-03-14] MEDS ORDERED: IPRATROPIUM NEB FS 0.5 MG/2.5 ML AMPUL.NEB NEB ONE (12:00)
[2017-03-14] MEDS ORDERED: ALBUTEROL FS 2.5 MG/0.5 ML VIAL.NEB NEB ONE (12:00)
[2017-03-14] MEDS ORDERED: SUCCINYLCHOLINE CHLORIDE 20 MG/ML VIAL IV ONE (12:00)
[2017-03-14] MEDS ORDERED: IPRATROPIUM NEB FS 0.5 MG/2.5 ML AMPUL.NEB ONE (12:10)
[2017-03-14] MEDS ORDERED: ALBUTEROL FS 2.5 MG/3 ML VIAL.NEB ONE (12:10)
[2017-03-14 12:12] LABS: APPEARANCE,URINE Clear (CLEAR); BILIRUBIN,URINE SMALL (NEGATIVE); BLOOD, URINE Negative Ery/uL (NEGATIVE); COLOR,URINE Yellow (YELLOW); KETONES,URINE Negative (NEGATIVE); LEUKOCYTE ESTERASE ,URINE Negative (NEGATIVE); NITRITE, URINE Negative (NEGATIVE); PH,URINE 5.5 (5.0-8.0); PROTEIN,URINE 30 mg/dl (NEGATIVE); UGLUCOSE Negative (NEGATIVE)
[2017-03-14 12:17] LABS: BACTERIA,URINE Rare /HPF (None Seen); RBC,URINE 0-2 /HPF (0-2); SQUAMOUS EPITHELIAL CELL,UR Few /HPF (None Seen); WBC,URINE 0-2 /HPF (0-3)
--- NOTE | 2017-03-14 12:17 | NUR ---
ICU 259
[2017-03-14 13:38] LABS: ABG OXYGEN SATURATION 98.3 % (92.0-98.5); ABG PCO2 46.7 mmHg (35.0-45.0); ABG PH 7.266 (7.350-7.450); ABG PO2 146.9 mmHg (75.0-100.0); AaDO2 519.4 mmHg; COHb 0.2 % (0.5-1.5); MetHb 0.3 % (0.0-1.5); O2Hb 97.8 % (94.0-97.0); PEEP,BG 5 cm H2O; SITE, ABG Left Brachial; VENT MODE, BG AC 100 O2; VT, ABG 450 mL
--- NOTE | 2017-03-14 13:38 | NUR ---
PICC LINE NURSE AT BEDSIDE FOR PICC PLACEMENT
[2017-03-14 13:39] LABS: CALCIUM, SERUM 7.8 mg/dL (8.5-10.1); CARBON DIOXIDE 24 mmol/L (21-32); CHLORIDE 106 mmol/L (98-107); CREATININE 1.4 mg/dL (0.6-1.3); GLUCOSE 113 mg/dL (74-106); POTASSIUM 5.1 mmol/L (3.5-5.1); SODIUM SERUM 137 mmol/L (136-145); UREA NITROGEN, BLOOD 37 mg/dL (7-18)
[2017-03-14 13:53] LABS: ALANINE AMINOTRANSFERASE 9 U/L (12-78); ALKALINE PHOSPHATASE 119 U/L (46-116); ASPARTATE AMINOTRANSFERASE 15 U/L (15-37); BILIRUBIN,DIRECT 0.3 mg/dL (0.0-0.2); BILIRUBIN,TOTAL 0.7 mg/dL (0.2-1.0)
[2017-03-14 13:57] LABS: BASOPHILS # (AUTO) 0.8 /CMM (0.0-0.2); BASOPHILS % (AUTO) 2.8 % (0.0-2.0); HEMATOCRIT 30 % (33-45); HEMOGLOBIN 9.6 g/dL (11.5-14.8); LYMPHOCYTES # (AUTO) 0.5 /CMM (0.8-4.8); LYMPHOCYTES % (AUTO) 1.8 % (20.0-44.0); MEAN CORPUSCULAR HEMOGLOBIN 29 PG (26.0-33.0); MEAN CORPUSCULAR HGB CONC 32 g/dl (31.0-36.0); MEAN CORPUSCULAR VOLUME 90 fL (82-100); MONOCYTES # (AUTO) 0.1 /CMM (0.1-1.30); MONOCYTES % (AUTO) 0.3 % (2.0-12.0); NEUTROPHILS # (AUTO) 28.7 /CMM (1.8-8.9); NEUTROPHILS % (AUTO) 95.1 % (43.0-81.0); PLATELET COUNT (AUTO) 240 /CMM (150-450); RDW COEFFICIENT OF VARIATION 18.4 (11.5-15.0); RED BLOOD CELL COUNT(AUTO) 3.33 MIL/uL (4.0-5.2)
[2017-03-14 13:58] LABS: ALBUMIN 1.1 g/dL (3.4-5.0); TROPONIN I 0.959 ng/mL (0.00-0.056)
--- NOTE | 2017-03-14 14:00 | NUR ---
DR ROSEN CALLED, ON THE PHONE WITH DR CASIANO.
[2017-03-14 14:01] LABS: WHITE BLOOD COUNT (AUTO) 30.2 K/uL (4.3-11.0)
--- NOTE | 2017-03-14 14:11 | NUR ---
CALLED [facility] VOICE ENGINEER WAS PAGED.
[2017-03-14] MEDS ORDERED: AMIODARONE HCL 200 MG TABLET ONE (14:13)
--- NOTE | 2017-03-14 14:16 | NUR ---
SALEM SUMP ORAL TUBE 14Fr INSERTED, PLACEMENT VERIFIED BY 2 RN'S. PT TOLERATED WELL.
[2017-03-14] MEDS ORDERED: ACETAMINOPHEN 325 MG TABLET PO PRN (14:30)
[2017-03-14] MEDS ORDERED: MAG HYDROX/AL HYDROX/SIMETH 30 ML UDC PO PRN (14:30)
[2017-03-14] MEDS ORDERED: ONDANSETRON HCL/PF 4 MG/2 ML VIAL IVP PRN (14:30)
[2017-03-14] MEDS ORDERED: RIVAROXABAN 15 MG TABLET PO ONE (14:30)
[2017-03-14] MEDS ORDERED: MAGNESIUM HYDROXIDE 30 ML UDC PO PRN (14:30)
[2017-03-14 14:34] LABS: B-TYPE NATRIURETIC PEPTIDE 36232 PG/ML (0-125)
--- NOTE | 2017-03-14 14:50 | NUR ---
NEW VENT SETTINGS: 14/450/70/5
[2017-03-14] MEDS ORDERED: IOHEXOL-350 100 ML VIAL IV ONE (14:56)
[2017-03-14] MEDS ORDERED: CT SWABBABLE VALVE TRANS SET 1 EA INFUS.SET MC ONE (14:57)
[2017-03-14] MEDS ORDERED: IV NS 0.9% 250 ML IV ONE (14:57)
[2017-03-14] MEDS ORDERED: FEE PK DOSING 1 MIN EA MC ONE (15:12)
[2017-03-14 15:13] LABS: BAND % (MANUAL) 34 % (0.0-5.0); LYMPHOCYTES % (MANUAL) 5 % (16-48); MONOCYTES % (MANUAL) 1 % (0-11.0); NEUTROPHILS % (MANUAL) 60 (42-76)
[2017-03-14] MEDS: VANCOMYCIN 1 GM in IV D5W 250 ML IV SCH (15:30)
--- NOTE | 2017-03-14 15:30 | NUR ---
icu note- received bedside report, pt was brought intubated, on diprivan @20mcg/min, pt has shahram picc tlc, c/d/i/patent, flushing well, f/c draining yellow urine to gravity, pt was brought septic, per er hilary, no fluids given, no abx given. supervisor cytogenetic laboratory at bedside for blood cx, no blood pressure medication, pt bp in 60's, all photos taken, scarlet carrington at bedside, orders were given and received, all orders ack. will carry out all orders, will monitor pt closely
--- NOTE | 2017-03-14 15:50 | NUR ---
PT RECEIVED FROM ER WITH VENT SETTINGS GENEVIEVE: LULA 14 VT 450 ML FIO2 70% PEEP +5 Addendum: 03/14/17 at 1551 by SOLIS MOSER RT Amended: Links added.
--- NOTE | 2017-03-14 15:53 | NUR ---
VENT [facility]LE[place] PER DR. GRUBER: AC 26 VT 450 FIO2 60% PEEP +5 Addendum: 03/14/17 at 1555 by SOLIS MOSER RT Amended: Links added.
[2017-03-14] MEDS ORDERED: IV LR 1000 ML 1,000 ML IV ONE ×3 (16:00→17:30)
[2017-03-14 16:16] LABS: INR 2.46 (0.87-1.13)
[2017-03-14] MEDS ORDERED: IV NS 0.9% 1,000 ML IV SCH (17:00)
--- NOTE | 2017-03-14 17:30 | NUR ---
icu note- called pharmacy regarding zosyn, spoke with rajiv, will bring it up.
[2017-03-14] MEDS: IV LR 1000 ML 1,000 ML IV PRN ×2 (17:45→23:23)
[2017-03-14] MEDS: PROPOFOL 10MG/ML 50ML 50 ML IV PRN (17:57)
[2017-03-14] MEDS: AZITHROMYCIN 250 MG in IV D5W 250 ML IV SCH (17:57)
[2017-03-14] MEDS ORDERED: PIPERACILLIN /TAZOBACTAM 3.375 G in IV D5W 50 ML IV SCH (18:00)
[2017-03-14] MEDS: NOREPINEPHRINE 16 MG in IV D5W 500 ML IV PRN ×2 (18:15→18:25)
--- NOTE | 2017-03-14 18:20 | NUR ---
icu note- called pharmacy regarding zosyn, spoke with rajiv, will bring it up.
[2017-03-14] MEDS: PANTOPRAZOLE 40 MG VIAL IV SCH (19:10)
--- NOTE | 2017-03-14 19:25 | NUR ---
icu note- called pharmacy regarding zosyn, spoke with rajiv, will bring it up.
--- NOTE | 2017-03-14 19:36 | NUR ---
PATIENT RECEIVED ORALLY INTUBATED WITH 7.5 ETT SECURED AT 22 CM MID LIP ON VENT. ALARMS VERIFIED AND AUDIBLE. SUCTIONED AND LAVAGED MODERATE-LARGE AMOUNT OF THICK JAQUEZ SECRETIONS. VENT PLUGGED INTO RED OUTLET. LAURA BAG AT [facility]. WILL CONTINUE TO MONITOR. Addendum: 03/14/17 at 1936 by TOMER MAO RT Amended: Links added.
[2017-03-14] MEDS ORDERED: PIPERACILLIN /TAZOBACTAM 2.25 G VIAL IV ONE (19:44)
[2017-03-14] MEDS: PIPERACILLIN /TAZOBACTAM 2.25 G in IV D5W 50 ML IV SCH (19:54)
--- NOTE | 2017-03-14 20:00 | NUR ---
GAS PLANT TECHNICIAN INITIAL NOTE PATIENT RECEIVED ORALLY INTUBATED WITH 7.5 ETT SECURED AT 22 CM MID LIP ON VENT. ALARMS VERIFIED AND AUDIBLE. SUCTIONED AND LAVAGED MODERATE-LARGE AMOUNT OF THICK JAQUEZ SECRETIONS. VENT PLUGGED INTO RED OUTLET. AMBU BAG AT [facility]. WILL CONTINUE TO MONITOR.
--- NOTE | 2017-03-14 20:30 | NUR ---
REPEAT LAB RESULTS OBTAINED FOR TROPONIN TRENDING DOWN 0.657, PTT 77, MD ORDER TO GIVE HEPARIN 5000 U SQ IF < 40 SEC, DOSE HELD..
[2017-03-14] MEDS ORDERED: AMIODARONE HCL 200 MG TABLET PO SCH (21:00)
[2017-03-14] MEDS ORDERED: HEPARIN SODIUM, PORCINE 5000 UNITS/1 ML VIAL SQ SCH ×2 (21:00)
[2017-03-15] VITALS (71 sets, daily range): BP systolic 34–134; BP diastolic 21–77
[2017-03-15] MEDS ORDERED: PIPERACILLIN /TAZOBACTAM 2.25 G VIAL IV ONE ×2 (00:55→05:00)
[2017-03-15] MEDS: PIPERACILLIN /TAZOBACTAM 2.25 G in IV D5W 50 ML IV SCH ×3 (00:58→12:45)
--- NOTE | 2017-03-15 02:46 | NUR ---
DECREASED FIO2 TO 40%. PT KRISTI WELL. Addendum: 03/15/17 at 0248 by TOMER MAO RT Amended: Links added.
[2017-03-15 04:54] LABS: BASOPHILS % (AUTO) 0.1 % (0.0-2.0); EOSINOPHILS % (AUTO) 0.1 % (0.0-6.0); HEMATOCRIT 26 % (33-45); LYMPHOCYTES % (AUTO) 5.3 % (20.0-44.0); MEAN CORPUSCULAR HEMOGLOBIN 31 PG (26.0-33.0); MEAN CORPUSCULAR HGB CONC 35 g/dl (31.0-36.0); MEAN CORPUSCULAR VOLUME 88 fL (82-100); MONOCYTES % (AUTO) 2.7 % (2.0-12.0); NEUTROPHILS # (AUTO) 34.4 /CMM (1.8-8.9); NEUTROPHILS % (AUTO) 91.8 % (43.0-81.0); PLATELET COUNT (AUTO) 201 /CMM (150-450); RDW COEFFICIENT OF VARIATION 17.3 (11.5-15.0); RED BLOOD CELL COUNT(AUTO) 2.91 MIL/uL (4.0-5.2)
[2017-03-15] MEDS ORDERED: HEPARIN SODIUM, PORCINE 5000 UNITS/1 ML VIAL SQ SCH (05:00)
[2017-03-15 05:11] LABS: ALANINE AMINOTRANSFERASE 9 U/L (12-78); ALKALINE PHOSPHATASE 101 U/L (46-116); ASPARTATE AMINOTRANSFERASE 16 U/L (15-37); BILIRUBIN,DIRECT 0.2 mg/dL (0.0-0.2); BILIRUBIN,TOTAL 0.6 mg/dL (0.2-1.0); CALCIUM, SERUM 7.2 mg/dL (8.5-10.1); CARBON DIOXIDE 22 mmol/L (21-32); CHLORIDE 96 mmol/L (98-107); CREATININE 1.3 mg/dL (0.6-1.3); GLUCOSE 331 mg/dL (74-106); MAGNESIUM 1.3 mg/dL (1.8-2.4); PHOSPHORUS 3.2 mg/dL (2.5-4.9); POTASSIUM 4.7 mmol/L (3.5-5.1); SODIUM SERUM 126 mmol/L (136-145); TOTAL PROTEIN, SERUM 5.7 g/dL (6.4-8.2); UREA NITROGEN, BLOOD 35 mg/dL (7-18)
[2017-03-15 05:15] LABS: WHITE BLOOD COUNT (AUTO) 37.4 K/uL (4.3-11.0)
[2017-03-15 05:35] LABS: BAND % (MANUAL) 10 % (0.0-5.0); LYMPHOCYTES % (MANUAL) 8 % (16-48); MONOCYTES % (MANUAL) 5 % (0-11.0); NEUTROPHILS % (MANUAL) 77 (42-76)
[2017-03-15 05:37] LABS: ALBUMIN 0.7 g/dL (3.4-5.0)
[2017-03-15] MEDS: IV LR 1000 ML 1,000 ML IV PRN ×4 (05:37→19:29)
[2017-03-15] MEDS: NOREPINEPHRINE 16 MG in IV D5W 500 ML IV PRN ×2 (05:42→17:19)
[2017-03-15] MEDS: PROPOFOL 10MG/ML 50ML 50 ML IV PRN ×2 (05:54→12:45)
--- NOTE | 2017-03-15 06:19 | NUR ---
0500 HEPARIN 5000 U NOT GIVEN PTT 77.
--- NOTE | 2017-03-15 06:39 | NUR ---
SCOUT SNIPER CLOSING NOTE ENDORSED PT CONT ON SEDATION MAINTAINED ON DEPO @ 10 MCG, CL LAB RESULTS TO BE RELAYED TO AM SHIFT NURSE TO REPORT TO MD, WBC 37.4, TROPONIN TRENDING DOWN TO 0.590, PTT 77, HEPARIN DOSE @ 05 AM NOT GIVEN ENDORSED BY MD ORDER. WILL ENDORSE FOR REJI.
--- NOTE | 2017-03-15 07:10 | NUR ---
DYE RANGE FEEDER INITIAL NOTES: REC'D PT ON BED, SEDATED, NOT IN ANY DISTRESS. ON MV VIA ETT, SATING AT 100%. ON TELEMONITOR, A.FIB W/ HR 76 BPM. HAS OGT, LEVEL 59, CLAMPED AT THIS TIME, PATENT & INTACT, NOTED GURGLING SOUND UPON AUSCULTATION. HAS FC DRAINING TO ADEQUATE URINE OUTPUT. ON BILATERAL SOFT WRIST RESTRAINTS. HAS IV LINE ACCESS, PATENT & INTACT W/ NO S/SX OF INFECTION/INFILTRATION NOTED - R WRIST G20 AND L HAND G22, SL; WINTER PICC, TLC W/ LR X 100 CC/HR AND LEVOPHED AT 20 MCG/MIN AND DIPRIVAN X 10 MCG. PROVIDED COMFORT & SAFETY MEASURES. BED KEPT LOW & IN LOCKED POS. CALL LIGHT PLACED W/IN REACH. WILL CONTINUE TO MONITOR & ATTEND PT NEEDS.
--- NOTE | 2017-03-15 08:00 | NUR ---
RN NOTES: PT SEEN & EXAMINED BY DR. PRATHER W/ ORDERS MADE & CARRIED OUT.
[2017-03-15 08:03] LABS: ALANINE AMINOTRANSFERASE 10 U/L (12-78); ALKALINE PHOSPHATASE 92 U/L (46-116); ASPARTATE AMINOTRANSFERASE 16 U/L (15-37); BILIRUBIN,TOTAL 0.6 mg/dL (0.2-1.0); CALCIUM, SERUM 6.7 mg/dL (8.5-10.1); CARBON DIOXIDE 22 mmol/L (21-32); CHLORIDE 97 mmol/L (98-107); CREATININE 1.3 mg/dL (0.6-1.3); GLUCOSE 297 mg/dL (74-106); POTASSIUM 4.8 mmol/L (3.5-5.1); SODIUM SERUM 126 mmol/L (136-145); TOTAL PROTEIN, SERUM 5.7 g/dL (6.4-8.2); UREA NITROGEN, BLOOD 34 mg/dL (7-18)
--- NOTE | 2017-03-15 08:05 | NUR ---
RT PATIENT REC'D ORALLY INTUBATED ON MECH VENT WITH SETTINGS SET BY MD KRISTI MEYERS. VENT ALARMS CHECKED+ AUDIBLE. CUFF PRESSURE CHECKED HEAD CHOPPER. SX'D WITH MOD AMT JAQUEZ SEMITHICK SECRETIONS. B/S DIM COARSE. PATIENT SEDATED APPEARS COMFORTABLE. AMBU BAG AT [facility]. CONT CURRENT PLAN OF RESP CARE.
[2017-03-15 08:20] LABS: TROPONIN I 0.569 ng/mL (0.00-0.056)
[2017-03-15 08:21] LABS: ALBUMIN 0.7 g/dL (3.4-5.0)
[2017-03-15] MEDS: Magnesium 1GM/D5W 100ML PREMIX 100 ML IV SCH ×2 (08:45→09:49)
[2017-03-15] MEDS: Z GUARD REMEDY 2 OZ OINT TP PRN (08:46)
[2017-03-15] MEDS: AMIODARONE HCL 200 MG TABLET PO SCH ×2 (08:46→20:07)
[2017-03-15 08:47] LABS: ABG BASE EXCESS -2.1 mmol/L; ABG OXYGEN SATURATION 96.2 % (92.0-98.5); ABG PCO2 31.6 mmHg (35.0-45.0); ABG PH 7.447 (7.350-7.450); ABG PO2 88.2 mmHg (75.0-100.0); AaDO2 160.7 mmHg; COHb 0.3 % (0.5-1.5); MetHb 0.2 % (0.0-1.5); O2Hb 95.7 % (94.0-97.0); SITE, ABG Right Radial
--- NOTE | 2017-03-15 09:30 | NUR ---
RN NOTES: PT SEEN & EXAMINED BY DR. ROSEN. MADE HIM AWARE ABOUT THE SX WOUND W/ DRAINAGE. LACTIC ACID 5, PER MD NO NEED TO DRAW ANOTHER LACTIC ACID.
[2017-03-15 09:34] LABS: INR 2.11 (0.87-1.13)
--- NOTE | 2017-03-15 10:00 | NUR ---
RN NOTES: SEDATION VACATION DONE. PT IS NOT IN ANY DISTRESS, ABLE TO FOLLOW SIMPLE COMMANDS AND OPENS EYES SPONTANEOUSLY.
[2017-03-15] MEDS: MEROPENEM 500 MG in IV NS 0.9% 50 ML IV SCH (16:24)
[2017-03-15] MEDS: VANCOMYCIN 1 GM in IV D5W 250 ML IV SCH (16:24)
--- NOTE | 2017-03-15 16:24 | NUR ---
RN NOTES: SCANNED BAG OF LR AT 200 ML/HR, ACTUAL RATE 100 ML/HR, UNABLE TO UNDO ADMINISTRATION. PT RECEIVING PROPER DOSE OF LR ORDERED - LR X 100 CC/HR.
[2017-03-15] MEDS: PANTOPRAZOLE 40 MG VIAL IV SCH (17:16)
[2017-03-15] MEDS: AZITHROMYCIN 250 MG in IV D5W 250 ML IV SCH (17:16)
--- NOTE | 2017-03-15 19:00 | NUR ---
MEETING COORDINATOR CLOSING NOTES: NO ACUTE CHANGES NOTED W/IN SHIFT. PT TOLERATED PRESCRIBED MV SETTINGS VIA ETT. SECRETIONS SUCTIONED. ON TELEMONITOR, STILL A.FIB CONTROLLED. OGT AND FC, KEPT PATENT & INTACT. STILL ON BILATERAL SOFT WRIST RESTRAINTS FOR SAFETY. IV LINE ACCESS, KEPT PATENT & INTACT W/ NO S/SX OF INFECTION/INFILTRATION NOTED - R WRIST G20 AND L HAND G22, SL; WINTER PICC, TLC W/ LR X 100 CC/HR AND LEVOPHED AT 15 MCG/MIN AND DIPRIVAN X 10 MCG. KEPT WELL RESTED. BED KEPT LOW & IN LOCKED POS. CALL LIGHT PLACED W/IN REACH. ENDORSED TO PM RN FOR REJI.
--- NOTE | 2017-03-15 19:30 | NUR ---
RN INITIAL NOTES: RECEIVED PATIENT ON BED, SEDATED ON PROPOFOL, ORALLY INTUBATED 7.5, 22CM AT THE LIP, ON MECHANICAL VENTILATOR AT PRESCRIBED SETTINGS, FREE FROM ANY S/S OF RESPIRATORY DISTRESS. AMBU BAG AT [facility] ON TELEMETRY MONITORING, REVEALING A.FIB W/ CONTROLLED RATE, HR = 81 BPM AT THIS TIME. PATIENT NOTED WITH OGT, CLAMPED AT THIS TIME, PATENT & INTACT, AUSCULTATED AND FLUSHED FOR PLACEMENT. PATIENT HAS FC DRAINING TO BAG VIA GRAVITY. ON BILATERAL SOFT WRIST RESTRAINTS. HAS IV LINE ACCESS, PATENT & INTACT W/ NO S/SX OF INFECTION/INFILTRATION NOTED - R WRIST G20 AND L HAND G22, SL; WINTER PICC, TLC W/ LR X 100 CC/HR AND LEVOPHED AT 15 MCG/MIN AND DIPRIVAN X 10. PROVIDED COMFORT & SAFETY MEASURES. BED KEPT LOW & IN LOCKED POS. CALL LIGHT PLACED W/IN REACH. WILL CONTINUE TO CLOSELY MONITOR
--- NOTE | 2017-03-15 21:20 | NUR ---
PT RECEIVED ORALLY INTUBATED WITH 7.5 ETT SECURED AT 22CM AT THE LIP. TOLERATING NOTED VENT SETTINGS. SX'D FOR MOD AMT OF THK JAQUEZ SECRETIONS. BAG VALVER DONE AND ETT SECURE WITH ANCHOR FAST. VENT ALARMS CHECKED AND AUDIBLE. AMBU BAG AT BEDSIDE. VENT PLUGGED INTO RED OUTLET. WILL CONTINUE TO MONITOR.
[2017-03-16] VITALS (70 sets, daily range): BP systolic 84–125; BP diastolic 36–76
[2017-03-16] MEDS: PROPOFOL 10MG/ML 50ML 50 ML IV PRN ×5 (01:28→23:40)
[2017-03-16] MEDS: IV LR 1000 ML 1,000 ML IV PRN (04:15)
[2017-03-16] MEDS: MEROPENEM 500 MG in IV NS 0.9% 50 ML IV SCH ×2 (04:19→17:11)
[2017-03-16 04:23] LABS: BASOPHILS # (AUTO) 0.1 /CMM (0.0-0.2); BASOPHILS % (AUTO) 0.2 % (0.0-2.0); EOSINOPHILS % (AUTO) 0.1 % (0.0-6.0); HEMATOCRIT 26 % (33-45); HEMOGLOBIN 8.7 g/dL (11.5-14.8); LYMPHOCYTES % (AUTO) 8.2 % (20.0-44.0); MEAN CORPUSCULAR HEMOGLOBIN 29 PG (26.0-33.0); MEAN CORPUSCULAR HGB CONC 33 g/dl (31.0-36.0); MEAN CORPUSCULAR VOLUME 88 fL (82-100); MONOCYTES # (AUTO) 1.2 /CMM (0.1-1.30); MONOCYTES % (AUTO) 3.3 % (2.0-12.0); NEUTROPHILS # (AUTO) 32.6 /CMM (1.8-8.9); NEUTROPHILS % (AUTO) 88.2 % (43.0-81.0); PLATELET COUNT (AUTO) 180 /CMM (150-450); RDW COEFFICIENT OF VARIATION 17.4 (11.5-15.0); RED BLOOD CELL COUNT(AUTO) 2.99 MIL/uL (4.0-5.2)
[2017-03-16 04:33] LABS: WHITE BLOOD COUNT (AUTO) 36.9 K/uL (4.3-11.0)
[2017-03-16 04:42] LABS: ALANINE AMINOTRANSFERASE 8 U/L (12-78); ALKALINE PHOSPHATASE 103 U/L (46-116); ASPARTATE AMINOTRANSFERASE 13 U/L (15-37); BILIRUBIN,TOTAL 0.5 mg/dL (0.2-1.0); CALCIUM, SERUM 7.7 mg/dL (8.5-10.1); CARBON DIOXIDE 25 mmol/L (21-32); CHLORIDE 99 mmol/L (98-107); CREATININE 1.2 mg/dL (0.6-1.3); GLUCOSE 107 mg/dL (74-106); MAGNESIUM 1.8 mg/dL (1.8-2.4); PHOSPHORUS 3.2 mg/dL (2.5-4.9); POTASSIUM 4.5 mmol/L (3.5-5.1); SODIUM SERUM 129 mmol/L (136-145); TOTAL PROTEIN, SERUM 5.6 g/dL (6.4-8.2); UREA NITROGEN, BLOOD 37 mg/dL (7-18)
[2017-03-16 05:19] LABS: BAND % (MANUAL) 2 % (0.0-5.0); EOSINOPHILS % (MANUAL) 2 % (0-4); LYMPHOCYTES % (MANUAL) 8 % (16-48); MONOCYTES % (MANUAL) 5 % (0-11.0); NEUTROPHILS % (MANUAL) 83 (42-76)
[2017-03-16 05:21] LABS: ALBUMIN 0.7 g/dL (3.4-5.0)
[2017-03-16 05:22] LABS: TROPONIN I 0.489 ng/mL (0.00-0.056)
--- NOTE | 2017-03-16 07:55 | NUR ---
RT PATIENT REC'D ORALLY INTUBATED ON [facility] VENT WITH SETTINGS SET BY MD KRISTI MEYERS. VENT ALARMS CHECKED+ AUDIBLE. 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 SX'D WITH SMALL AMT JAQUEZ SEMITHICK SECRETIONS. B/S DIM. PATIENT IN CRITICAL CONDITION. AMBU BAG AT HOB. CONT CURRENT PLAN OF RESP CARE. Addendum: 03/16/17 at 0940 by NEIL ALLAN RT Amended: Links added.
[2017-03-16] MEDS: AMIODARONE HCL 200 MG TABLET PO SCH ×2 (08:24→21:28)
--- NOTE | 2017-03-16 10:12 | NUR ---
WOUND CARE CONSULT WOUND CARE RECEIVED CONSULT, WOUND CARE WILL DEFER TO SURGICAL TEAM ALREADY FOLLOWING. PATIENT WITH JERALD AT 11, ALL PRESSURE ULCER PREVENTION MEASURES NOTED TO BE IN PLACE. TREATMENT ORDERS PER SURGICAL TEAM IN PLACE.
[2017-03-16] MEDS: NOREPINEPHRINE 16 MG in IV D5W 500 ML IV PRN (10:14)
--- NOTE | 2017-03-16 10:30 | NUR ---
ICU/RN: Dr Elver george; updated on pt status. Informed that ID consult is pending regarding positive sputum cultures. Per Jw BAIN, [employer] CONSULTANT will be in to see pt.
--- NOTE | 2017-03-16 11:10 | NUR ---
ICU/RN: Dr Blank at bedside for surgical consult. Sacral wound staged by MD as DTI. Protect with mepilex per MD.
[2017-03-16] MEDS: IV D5/ 0.9% NACL 1,000 ML IV PRN (11:34)
--- NOTE | 2017-03-16 13:45 | NUR ---
ICU/RN: Dr Tate at bedside to examine L Hip Surgical site s/p L hip ORIF. Per MD, no s/s infection noted. Imaging tests ordered. Noted and carried out.
--- NOTE | 2017-03-16 14:43 | NUR ---
ICU/RN: Paged Dr Tate regarding L Hip XR Results; awaiting call back.
[2017-03-16] MEDS: VANCOMYCIN 1 GM in IV D5W 250 ML IV SCH (15:49)
--- NOTE | 2017-03-16 17:00 | NUR ---
FIO2 INCREASED TO 50% FOR DESATURATION Addendum: 03/16/17 at 1700 by NEIL ALLAN RT Amended: Links added.
[2017-03-16] MEDS: AZITHROMYCIN 250 MG in IV D5W 250 ML IV SCH (17:11)
[2017-03-16] MEDS: PANTOPRAZOLE 40 MG VIAL IV SCH (17:15)
--- NOTE | 2017-03-16 18:45 | NUR ---
ICU/RN: Jw DIRECTOR DRUG at bedside for ID consult. Labs, cultures, wounds and pt status reviewed with DIRECTOR DRUG. Awaiting orders.
--- NOTE | 2017-03-16 19:30 | NUR ---
RN INITIAL NOTES: RECEIVED PATIENT ON BED, SEDATED ON PROPOFOL, ORALLY INTUBATED 7.5, 22CM AT THE LIP, ON MECHANICAL VENTILATOR AT PRESCRIBED SETTINGS, FREE FROM ANY S/S OF RESPIRATORY DISTRESS. AMBU BAG AT [facility]. ON TELEMETRY MONITORING, REVEALING A.FIB W/ CONTROLLED RATE, HR = 78 BPM AT THIS TIME. PATIENT NOTED WITH OGT, CLAMPED AT THIS TIME, PATENT & INTACT, AUSCULTATED AND FLUSHED FOR PLACEMENT. PATIENT HAS FC DRAINING TO BAG VIA GRAVITY. ON BILATERAL SOFT WRIST RESTRAINTS. HAS IV LINE ACCESS, PATENT & INTACT W/ NO S/SX OF INFECTION/INFILTRATION NOTED - L HAND G22, SL; WINTER PICC, TLC W/ D5NS X 75 CC/HR AND LEVOPHED AT 15 MCG/MIN AND DIPRIVAN X 15. PROVIDED COMFORT & SAFETY MEASURES. BED KEPT LOW & IN LOCKED POS. CALL LIGHT PLACED W/IN REACH. WILL CONTINUE TO CLOSELY MONITOR
--- NOTE | 2017-03-16 21:59 | NUR ---
PT RECEIVED ON VENT VIA CHARTED SETTINGS AND ROUTE. AMBU BAG AT BEDSIDE, ALARMS SET AND AUDIBLE. VENT PLUGGED INTO RED OUTLET. PT TOLERATING VENT WELL AT THIS TIME. WILL CONTINUE TO MONITOR Addendum: 03/16/17 at 2159 by NIRAJ BASILIO RT Amended: Links added.
[2017-03-17] VITALS (88 sets, daily range): BP systolic 78–144; BP diastolic 32–70
[2017-03-17] MEDS: IV D5/ 0.9% NACL 1,000 ML IV PRN ×2 (02:46→23:31)
[2017-03-17] MEDS: NOREPINEPHRINE 16 MG in IV D5W 500 ML IV PRN ×2 (02:48→17:38)
[2017-03-17] MEDS: MEROPENEM 500 MG in IV NS 0.9% 50 ML IV SCH ×2 (04:01→17:10)
[2017-03-17 05:06] LABS: BASOPHILS % (AUTO) 0.1 % (0.0-2.0); EOSINOPHILS % (AUTO) 0.1 % (0.0-6.0); HEMATOCRIT 24 % (33-45); HEMOGLOBIN 8.1 g/dL (11.5-14.8); LYMPHOCYTES # (AUTO) 3.3 /CMM (0.8-4.8); LYMPHOCYTES % (AUTO) 10.1 % (20.0-44.0); MEAN CORPUSCULAR HEMOGLOBIN 29 PG (26.0-33.0); MEAN CORPUSCULAR HGB CONC 34 g/dl (31.0-36.0); MEAN CORPUSCULAR VOLUME 88 fL (82-100); MONOCYTES # (AUTO) 0.9 /CMM (0.1-1.30); MONOCYTES % (AUTO) 2.7 % (2.0-12.0); NEUTROPHILS # (AUTO) 28.8 /CMM (1.8-8.9); PLATELET COUNT (AUTO) 145 /CMM (150-450); RDW COEFFICIENT OF VARIATION 17.9 (11.5-15.0); RED BLOOD CELL COUNT(AUTO) 2.76 MIL/uL (4.0-5.2)
[2017-03-17 05:20] LABS: WHITE BLOOD COUNT (AUTO) 33.1 K/uL (4.3-11.0)
[2017-03-17 05:27] LABS: ALANINE AMINOTRANSFERASE < 6 U/L (12-78); ALKALINE PHOSPHATASE 109 U/L (46-116); ASPARTATE AMINOTRANSFERASE 9 U/L (15-37); BILIRUBIN,TOTAL 0.5 mg/dL (0.2-1.0); CALCIUM, SERUM 7.5 mg/dL (8.5-10.1); CARBON DIOXIDE 22 mmol/L (21-32); CHLORIDE 99 mmol/L (98-107); CREATININE 1.1 mg/dL (0.6-1.3); GLUCOSE 130 mg/dL (74-106); MAGNESIUM 1.8 mg/dL (1.8-2.4); PHOSPHORUS 3.3 mg/dL (2.5-4.9); SODIUM SERUM 130 mmol/L (136-145); TOTAL PROTEIN, SERUM 5.7 g/dL (6.4-8.2); TROPONIN I 0.378 ng/mL (0.00-0.056); UREA NITROGEN, BLOOD 33 mg/dL (7-18)
[2017-03-17 05:33] LABS: BAND % (MANUAL) 2 % (0.0-5.0); LYMPHOCYTES % (MANUAL) 6 % (16-48); MONOCYTES % (MANUAL) 4 % (0-11.0); NEUTROPHILS % (MANUAL) 88 (42-76)
[2017-03-17 05:41] LABS: ALBUMIN 0.6 g/dL (3.4-5.0)
--- NOTE | 2017-03-17 07:00 | NUR ---
RN CLOSING NOTES PATIENT RESTING IN BED, APPEARS COMFORTABLE, REMAINS SEDATED ON DIPRIVAN @ 15MCG/KG/MIN, LEVOPHED AT 15MCG/MIN. WILL ENDORSE THE PATIENT TO THE AM SHIFT NURSE FOR REJI
--- NOTE | 2017-03-17 08:00 | NUR ---
ICU/RN INITIAL NOTES,AM RECEIVED REPORT FROM NIGHT NURSE. PT INTUBATED (ETT7.5, 22CM AT THE LIP), SEDATED. PT ON VENT SETTINGS ORDERED BY MD, NO ACUTE DISTRESS NOTED AT THIS TIME. PT CONTROLLED A.FIB ON TELE. OGT IN PLACE, PLACEMENT CHECKED. SU CATH IN PLACE, DRAINING URINE. PICC LINE PATENT AND INTACT, LEVO, FLUIDS AND DIPRIVAN INFUSING ORDERED. NO S/S OF INFECTION OR INFILTRATION NOTED. PT PENDING FOR BLE DUPLEX, WILL FOLLOW UP. ALL NEEDS WILL BE MET, SAFETY MEASURES TAKEN, BED IN LOW POSITION, SIDE RAILS UP, CALL LIGHT WITHIN REACH.
[2017-03-17 08:31] LABS: THYROID STIMULATING HORMONE 5.001 uIU/mL (0.358-3.74)
[2017-03-17] MEDS: VANCOMYCIN 1 GM in IV D5W 250 ML IV SCH (08:41)
[2017-03-17] MEDS: AMIODARONE HCL 200 MG TABLET PO SCH ×2 (08:44→20:58)
[2017-03-17] MEDS: PROPOFOL 10MG/ML 50ML 50 ML IV PRN ×3 (08:45→20:39)
--- NOTE | 2017-03-17 09:37 | NUR ---
ICU/RN: CRITICAL LAB LACTIC 2.5, NOTIFIED
[2017-03-17 10:56] LABS: BILIRUBIN,DIRECT 0.3 mg/dL (0.0-0.2)
[2017-03-17] MEDS: MICAFUNGIN SODIUM 100 MG in IV NS 0.9% 100 ML IV SCH (12:49)
--- NOTE | 2017-03-17 12:51 | NUR ---
ICU/RN: VENOUS STUDY DONE ON BILATERAL LOWER EXTREMITIES, NEGATIVE FOR DVT'S
[2017-03-17 15:55] LABS: ABG BASE EXCESS -2.3 mmol/L; ABG OXYGEN SATURATION 95.6 % (92.0-98.5); ABG PCO2 27.1 mmHg (35.0-45.0); ABG PH 7.492 (7.350-7.450); ABG PO2 83.4 mmHg (75.0-100.0); AaDO2 170.6 mmHg; COHb 0.3 % (0.5-1.5); MetHb 0.6 % (0.0-1.5); O2Hb 94.7 % (94.0-97.0); PEEP,BG 5 cm H2O; SITE, ABG Left Radial; VT, ABG 450 mL
[2017-03-17] MEDS: PANTOPRAZOLE 40 MG VIAL IV SCH (17:10)
[2017-03-17] MEDS: AZITHROMYCIN 250 MG in IV D5W 250 ML IV SCH (17:38)
--- NOTE | 2017-03-17 19:06 | NUR ---
ICU/RN: ENDING NOTES,AM REPORT WILL BE ENDORSED TO NIGHT NURSE FOR CONTINUATION OF CARE. ALL NEEDS ATTENDED TO, SAFETY MEASURES TAKEN. PT ON VENT SETTINGS ORDERED BY . LEVO FOR BP SUPPORT, DIPRIVAN AT 15MCG, IV FLUIDS INFUSING ORDERED. BED BATH GIVEN, TURNED AND REPOSITIONED. SAFETY MEASURES TAKEN, BED IN LOW POSITION, SIDE RIALS UP, CALL LIGHT WITHIN REACH.
[2017-03-17] MEDS ORDERED: LEVOFLOXACIN 750 MG /D5W 150ML 750 MG in PREMIX 1 EA IV SCH (19:30)
[2017-03-17] MEDS ORDERED: LEVOFLOXACIN 500 MG /D5W 100ML 500 MG in PREMIX 1 EA IV SCH (19:30)
[2017-03-17] MEDS ORDERED: CEFEPIME 1 GM in IV D5W 50 ML IV SCH ×2 (20:00→21:00)
--- NOTE | 2017-03-17 20:28 | NUR ---
PT RECEIVED INTUBATED 7.5 ETT SECURED AT 22CM AT THE LIP. NO RESP DISTRESS. PT TOLERATING VENT SETTINGS. SX'D FOR MOD AMT OF THICK JAQUEZ SECRETIONS. VENT ALARMS SET AND AUDIBLE. AMBU BAG AT BEDSIDE. VENT PLUGGED INTO RED OUTLET. WILL CONTINUE TO MONITOR. Addendum: 03/17/17 at 2028 by RAVINDER CARDOZA RT Amended: Links added.
[2017-03-18] VITALS (86 sets, daily range): BP systolic 99–142; BP diastolic 31–65
--- NOTE | 2017-03-18 | NUR ---
EQUIPMENT SERVICE ASSOCIATE - REC'D PT. ON DIPRIVAN GTT. AT 15 MCG/KG/MIN. & LEVOPHED GTT. AT 10 MCG/MIN. MIV OF D5NS INFUSING AT 75CC/HR TO RUE PICC LINE. PT. HAS BUE'S & HANDS SEEPING SEROUS FLUID. BUE'S ARE WRAPPED IN CHUX(S). OGT CLAMPED/NPO. GOOD PLACEMENT IS AUSC. SU CATH TO GRAVITY W/GOOD UOP. LEFT HIP HAS AABD PADS W/SOME DRAINAGE NOTED. ARTHRITIC FINGERS & TOES ARE NOTED. AFEBRILE. PITTING EDEMA IS GEN. TO BODY. BILAT.HANDS ARE 3-4+ EDEMATOUS. VENTED W/SETTINGS AT AC-16,TV-450, 40% & PEEP OF 5. PT. REMAINS IN SR/SB-50-60'S. PT'S 2100 CARDARONE MED WAS HELD DUE TO SB/HR AT 57. CONT.POC.
[2017-03-18] MEDS: PROPOFOL 10MG/ML 50ML 50 ML IV PRN ×4 (01:20→19:03)
[2017-03-18] MEDS: VANCOMYCIN 1 GM in IV D5W 250 ML IV SCH ×2 (03:26→21:00)
[2017-03-18 05:09] LABS: BASOPHILS # (AUTO) 0.1 /CMM (0.0-0.2); BASOPHILS % (AUTO) 0.3 % (0.0-2.0); EOSINOPHILS # (AUTO) 0.1 /CMM (0.0-0.7); EOSINOPHILS % (AUTO) 0.2 % (0.0-6.0); HEMATOCRIT 24 % (33-45); HEMOGLOBIN 7.8 g/dL (11.5-14.8); LYMPHOCYTES # (AUTO) 2.4 /CMM (0.8-4.8); LYMPHOCYTES % (AUTO) 7.7 % (20.0-44.0); MEAN CORPUSCULAR HEMOGLOBIN 29 PG (26.0-33.0); MEAN CORPUSCULAR HGB CONC 33 g/dl (31.0-36.0); MEAN CORPUSCULAR VOLUME 88 fL (82-100); MONOCYTES # (AUTO) 1.2 /CMM (0.1-1.30); MONOCYTES % (AUTO) 3.8 % (2.0-12.0); NEUTROPHILS # (AUTO) 27.2 /CMM (1.8-8.9); PLATELET COUNT (AUTO) 120 /CMM (150-450); RDW COEFFICIENT OF VARIATION 17.6 (11.5-15.0); RED BLOOD CELL COUNT(AUTO) 2.68 MIL/uL (4.0-5.2)
[2017-03-18 05:31] LABS: WHITE BLOOD COUNT (AUTO) 30.9 K/uL (4.3-11.0)
[2017-03-18 05:32] LABS: ALANINE AMINOTRANSFERASE 8 U/L (12-78); ALKALINE PHOSPHATASE 101 U/L (46-116); ASPARTATE AMINOTRANSFERASE 13 U/L (15-37); BILIRUBIN,TOTAL 0.6 mg/dL (0.2-1.0); CALCIUM, SERUM 7.4 mg/dL (8.5-10.1); CARBON DIOXIDE 24 mmol/L (21-32); CHLORIDE 102 mmol/L (98-107); CREATININE 0.9 mg/dL (0.6-1.3); GLUCOSE 120 mg/dL (74-106); MAGNESIUM 1.8 mg/dL (1.8-2.4); PHOSPHORUS 3.7 mg/dL (2.5-4.9); POTASSIUM 4.1 mmol/L (3.5-5.1); SODIUM SERUM 132 mmol/L (136-145); TOTAL PROTEIN, SERUM 5.6 g/dL (6.4-8.2); UREA NITROGEN, BLOOD 26 mg/dL (7-18)
[2017-03-18 05:44] LABS: ALBUMIN 0.6 g/dL (3.4-5.0)
[2017-03-18 05:51] LABS: BAND % (MANUAL) 1 % (0.0-5.0); LYMPHOCYTES % (MANUAL) 9 % (16-48); MONOCYTES % (MANUAL) 3 % (0-11.0); NEUTROPHILS % (MANUAL) 87 (42-76)
--- NOTE | 2017-03-18 06:50 | NUR ---
TIMBER FELLER - SEDATION VACATION DONE WHILE CHANGING OUT BOTTLES. PT.TOOK AT LEAST 10 MIN. TO START ALARMING THE VENT. BILAT. SOFT WRIST RESTRAINTS ARE STILL NEEDED PER SAFETY PROTOCOL. NO CHANGES FROM LAST ASSESSMENT. COMPLETE BEDBATH ADM. W/ORAL,VENT,ZACHARY AND SKIN/WOUND CARE ADM. CONT.POC.
--- NOTE | 2017-03-18 07:47 | NUR ---
ICU/RN INITIAL NOTES,AM RECEIVED REPORT FROM NIGHT NURSE. PT INTUBATED (ETT7.5, 22CM AT THE LIP), SEDATED ON DIPRIVAN 15MCG. PT ON VENT SETTINGS ORDERED BY , NO ACUTE DISTRESS NOTED AT THIS TIME. PT SINUS TESHA,[address]LE. OGT IN [address], PLACEMENT CHECKED, NPO AT THIS TIME. SU CATH IN PLACE, DRAINING URINE. PICC LINE PATENT AND INTACT, LEVO, FLUIDS AND DIPRIVAN INFUSING ORDERED. NO S/S OF INFECTION OR INFILTRATION NOTED. ALL NEEDS WILL BE MET, SAFETY MEASURES TAKEN, BED IN LOW POSITION, SIDE RAILS UP, CALL LIGHT WITHIN REACH.
[2017-03-18] MEDS: AMIODARONE HCL 200 MG TABLET PO SCH ×2 (09:00→21:00)
[2017-03-18 09:24] LABS: ABG BASE EXCESS -1.6 mmol/L; ABG OXYGEN SATURATION 96.3 % (92.0-98.5); ABG PCO2 30.7 mmHg (35.0-45.0); ABG PH 7.467 (7.350-7.450); ABG PO2 89.7 mmHg (75.0-100.0); AaDO2 160.2 mmHg; COHb 0.7 % (0.5-1.5); MetHb 0.2 % (0.0-1.5); O2Hb 95.4 % (94.0-97.0); PEEP,BG 5 cm H2O; SITE, ABG Right Radial; VENT MODE, BG AC 40%; VT, ABG 450 mL
[2017-03-18] MEDS: CEFEPIME 2 GM in IV D5W 100 ML IV SCH (12:52)
[2017-03-18] MEDS: MICAFUNGIN SODIUM 100 MG in IV NS 0.9% 100 ML IV SCH (13:40)
[2017-03-18] MEDS: PANTOPRAZOLE 40 MG VIAL IV SCH (18:04)
[2017-03-18] MEDS: IV D5/ 0.9% NACL 1,000 ML IV PRN (18:05)
[2017-03-18] MEDS: NOREPINEPHRINE 16 MG in IV D5W 500 ML IV PRN (18:08)
--- NOTE | 2017-03-18 18:38 | NUR ---
ICU/RN: ENDING NOTES,AM REPORT WILL BE ENDORSED TO NIGHT NURSE FOR CONTINUATION OF CARE. ALL NEEDS ATTENDED TO, SAFETY MEASURES TAKEN. PT ON VENT SETTINGS ORDERED BY . LEVO FOR BP SUPPORT, DIPRIVAN AT 10MCG, IV FLUIDS INFUSING ORDERED. BED BATH GIVEN, TURNED AND REPOSITIONED. SAFETY MEASURES TAKEN, BED IN LOW POSITION, SIDE RIALS UP, CALL LIGHT WITHIN REACH.
--- NOTE | 2017-03-18 21:05 | NUR ---
PT RECEIVED ORALLY INTUBATED WITH 7.5 ETT SECURED AT 22CM AT THE LIP. TOLERATING NOTED VENT SETTINGS. SX'D FOR MOD AMT OF THK JAQUEZ SECRETIONS. CONSTRUCTION FLAGGER DONE AND ETT SECURE WITH ANCHOR FAST. VENT ALARMS CHECKED AND AUDIBLE. AMBU BAG AT BEDSIDE. VENT PLUGGED INTO RED OUTLET. WILL CONTINUE TO MONITOR.
[2017-03-19] VITALS (87 sets, daily range): BP systolic 90–126; BP diastolic 32–83
[2017-03-19] MEDS: PROPOFOL 10MG/ML 50ML 50 ML IV PRN ×2 (02:41→06:13)
[2017-03-19 05:18] LABS: EOSINOPHILS # (AUTO) 0.1 /CMM (0.0-0.7); EOSINOPHILS % (AUTO) 0.2 % (0.0-6.0); HEMATOCRIT 23 % (33-45); HEMOGLOBIN 7.6 g/dL (11.5-14.8); LYMPHOCYTES # (AUTO) 2.4 /CMM (0.8-4.8); LYMPHOCYTES % (AUTO) 8.2 % (20.0-44.0); MEAN CORPUSCULAR HEMOGLOBIN 29 PG (26.0-33.0); MEAN CORPUSCULAR HGB CONC 33 g/dl (31.0-36.0); MEAN CORPUSCULAR VOLUME 88 fL (82-100); MONOCYTES # (AUTO) 1.5 /CMM (0.1-1.30); MONOCYTES % (AUTO) 5.2 % (2.0-12.0); NEUTROPHILS # (AUTO) 25.2 /CMM (1.8-8.9); NEUTROPHILS % (AUTO) 86.4 % (43.0-81.0); PLATELET COUNT (AUTO) 120 /CMM (150-450); RDW COEFFICIENT OF VARIATION 18.3 (11.5-15.0); RED BLOOD CELL COUNT(AUTO) 2.62 MIL/uL (4.0-5.2); WHITE BLOOD COUNT (AUTO) 29.2 K/uL (4.3-11.0)
[2017-03-19 05:40] LABS: CALCIUM, SERUM 7.3 mg/dL (8.5-10.1); CARBON DIOXIDE 21 mmol/L (21-32); CHLORIDE 105 mmol/L (98-107); CREATININE 0.8 mg/dL (0.6-1.3); GLUCOSE 172 mg/dL (74-106); POTASSIUM 3.9 mmol/L (3.5-5.1); SODIUM SERUM 134 mmol/L (136-145); UREA NITROGEN, BLOOD 22 mg/dL (7-18)
[2017-03-19 06:12] LABS: BAND % (MANUAL) 1 % (0.0-5.0); NEUTROPHILS % (MANUAL) 84 (42-76)
[2017-03-19 06:13] LABS: LYMPHOCYTES % (MANUAL) 7 % (16-48); METAMYELOCYTES % 1 % (0-0); MONOCYTES % (MANUAL) 6 % (0-11.0); MYELOCYTES % 1 % (0-0)
--- NOTE | 2017-03-19 07:30 | NUR ---
FLOOR TRADER- INITIAL NOTES RECEIVED PT AWAKE, CALM & ORALLY INTUBATED, ETT 7.5, 22 @ THE LIP. ON MECHANICAL VENT, SETTINGS ORDERED, RESPIRATIONS EVEN & UNLABORED, NO SOB OR DISTRESS NOTED. BEDSIDE MONITOR REVEALS SINUS RHYTHM. OGT PRESENT AND CURRENTLY CLAMPED, NPO AT THIS TIME. SU CATHETER DRAINING TO GRAVITY. WINTER PICC LINE RUNNING LEVOPHED @ 8 MCG/MIN, D5NS @ 75 ML/HR AND DIPRIVAN @ 10 MCG/MIN. BILATERAL SOFT WRIST RESTRAINTS IN PLACE. SAFETY MEASURES TAKEN: BED LOCKED AND IN LOW POSITION, SIDE RAILS UP 2 AND BED ALARM ON, WILL CONTINUE TO MONITOR.
[2017-03-19] MEDS: IV D5/ 0.9% NACL 1,000 ML IV PRN (07:41)
--- NOTE | 2017-03-19 07:46 | NUR ---
PT REC'D INTUBATED VIA 7.5 ETT AT 22CM. VENT SETTINGS CHARTED. PT WILL HAVE A WEANING TRIAL TODAY PER DR. BARCLAY. VENT ALARMS SET AND AUDIBLE PER POLICY. MINIMAL SECRETIONS SX/ JAQUEZ/BLOOD SPECKS. AMBU BAG AT HOB. Addendum: 03/19/17 at 0750 by RUSLAN BELL RT Amended: Links added.
--- NOTE | 2017-03-19 08:05 | NUR ---
EDGE CUTTING MACHINE OPERATOR- FLASH TURNED OFF FOR SEDATION VACATION/ WEANING. PT AWAKE, ALERT & ABLE TO FOLLOW COMMANDS. 0840- PT PLACED ON SIMV MODE BY RT. WILL CONTINUE TO MONITOR. 1400- ABGS DONE. RESULTS GIVEN TO DR. BARCLAY FOR REVIEW. PT STILL ON SIMV MODE AND TOLERATING WELL. 1430- DR. BARCLAY BACK AT BEDSIDE. PER MD, KEEP PT ON SIMV MODE FOR ONE MORE DAY. RT AWARE. WILL CONTINUE TO MONITOR.
[2017-03-19] MEDS: AMIODARONE HCL 200 MG TABLET PO SCH ×2 (08:36→21:52)
--- NOTE | 2017-03-19 09:05 | NUR ---
PT PLACED ON SIMV 4, PS [address] BARCLAY ORDERS AT 08:40. PT IS AWAKE AND ALERT. FOLLOWING COMMANDS. BAKARI ELLSWORTH AWARE OF VENT CHANGES. ABG TO BE DONE. Addendum: 03/19/17 at 0908 by RUSLAN BELL RT Amended: Links added.
[2017-03-19] MEDS: CEFEPIME 2 GM in IV D5W 100 ML IV SCH (11:07)
[2017-03-19] MEDS: MICAFUNGIN SODIUM 100 MG in IV NS 0.9% 100 ML IV SCH (11:56)
[2017-03-19 14:07] LABS: ABG BASE EXCESS -2.9 mmol/L; ABG PCO2 37.6 mmHg (35.0-45.0); ABG PH 7.383 (7.350-7.450); ABG PO2 92.8 mmHg (75.0-100.0); AaDO2 149.2 mmHg; COHb 0.3 % (0.5-1.5); MetHb 0.5 % (0.0-1.5); O2Hb 95.2 % (94.0-97.0); PEEP,BG 5 cm H2O; SITE, ABG Left Radial; VENT MODE, BG SIMV PS=12
[2017-03-19] MEDS ORDERED: VANCOMYCIN 1 GM in IV D5W 250 ML IV SCH (15:00)
[2017-03-19] MEDS: PANTOPRAZOLE 40 MG VIAL IV SCH (17:02)
[2017-03-19] MEDS: NOREPINEPHRINE 16 MG in IV D5W 500 ML IV PRN (18:37)
--- NOTE | 2017-03-19 19:00 | NUR ---
PT RECEIVED ORALLY INTUBATED WITH 7.5 ETT SECURED AT 22CM AT THE LIP. TOLERATING NOTED VENT SETTINGS. SX'D FOR MOD AMT OF THK JAQUEZ SECRETIONS. IMCU NURSE DONE AND ETT SECURE WITH ANCHOR FAST. VENT ALARMS CHECKED AND AUDIBLE. AMBU BAG AT BEDSIDE. VENT PLUGGED INTO RED OUTLET. WILL CONTINUE TO MONITOR
--- NOTE | 2017-03-19 19:21 | NUR ---
RT PT PLACED BACK ON AC MODE DUE TO INCREASE RESP RATE AND HR, RN ANASTASIA LARIOS.
--- NOTE | 2017-03-19 19:25 | NUR ---
RADIATOR REPAIRER PT NOTED WITH INCREASED HEART RATE AND RESPIRATIONS; PLACED ON AC MODE BY RT. CONTINUE TO MONITOR.
--- NOTE | 2017-03-19 23:28 | NUR ---
RT PT PLACED BACK ON SIMV MODE. BAKARI OCONNOR AWARE. PT TOLERATING SIMV MODE AND WILL CONTINUE TO MONITOR T/O SHIFT.
--- NOTE | 2017-03-19 23:28 | NUR ---
HEARING AID FITTER PT PLACED BACK ON SIMV MODE; CONTINUE TO MONITOR.
[2017-03-20] VITALS (59 sets, daily range): BP systolic 90–115; BP diastolic 32–74
[2017-03-20] MEDS: IV D5/ 0.9% NACL 1,000 ML IV PRN (00:30)
[2017-03-20 05:05] LABS: CALCIUM, SERUM 7.2 mg/dL (8.5-10.1); CARBON DIOXIDE 24 mmol/L (21-32); CHLORIDE 109 mmol/L (98-107); CREATININE 0.7 mg/dL (0.6-1.3); GLUCOSE 96 mg/dL (74-106); SODIUM SERUM 137 mmol/L (136-145); UREA NITROGEN, BLOOD 20 mg/dL (7-18)
--- NOTE | 2017-03-20 07:45 | NUR ---
KILN PLACER: pt.is out off sedation, Upper Sorbian speaker, can open eyes, eyes contact+, on wrists restraints, rest now, unable to follow commands well, O2 sat. over 94% on SIMV mode, was on AC mode episode d/t resp.distress per report, SR, pressor off, SBP over 90 now, T96.6/warm measures initiated, albumin 0.6/will speak with MD, NPO, low urine out/will s/w MD, multifocal PNA
[2017-03-20 08:58] LABS: BASOPHILS % (AUTO) 0.1 % (0.0-2.0); EOSINOPHILS % (AUTO) 0.3 % (0.0-6.0); HEMATOCRIT 23 % (33-45); HEMOGLOBIN 7.6 g/dL (11.5-14.8); LYMPHOCYTES % (AUTO) 7.1 % (20.0-44.0); MEAN CORPUSCULAR HEMOGLOBIN 29 PG (26.0-33.0); MEAN CORPUSCULAR HGB CONC 34 g/dl (31.0-36.0); MEAN CORPUSCULAR VOLUME 87 fL (82-100); MONOCYTES # (AUTO) 0.8 /CMM (0.1-1.30); MONOCYTES % (AUTO) 5.4 % (2.0-12.0); NEUTROPHILS # (AUTO) 12.2 /CMM (1.8-8.9); NEUTROPHILS % (AUTO) 87.1 % (43.0-81.0); PLATELET COUNT (AUTO) 104 /CMM (150-450); RDW COEFFICIENT OF VARIATION 18.3 (11.5-15.0)
[2017-03-20] MEDS: AMIODARONE HCL 200 MG TABLET PO SCH ×2 (09:19→21:56)
[2017-03-20 09:40] LABS: LYMPHOCYTES % (MANUAL) 15 % (16-48); MONOCYTES % (MANUAL) 14 % (0-11.0); NEUTROPHILS % (MANUAL) 71 (42-76)
--- NOTE | 2017-03-20 10:00 | NUR ---
PASTRY MIXER: is in room, updated with pt.current condition, VS, O2sat., pressor off, I/O, NPO, low urine output, albumin 0.6, pt.is going for CPAP/RT notified
--- NOTE | 2017-03-20 10:15 | NUR ---
ASSOCIATE PROFESSOR OF SOCIOLOGY: called to pharmacy to get Vanco bag
--- NOTE | 2017-03-20 10:35 | NUR ---
RT PLACED PT ON CPAP MODE PER MD ORDER. BAKARI POND NOTIFIED AND AWARE. SpO2 100%. PT TOLERATING WELL AT THIS TIME. NO SIGNS OF DISTRESS NOTED. WILL CONTINUE TO MONITOR THE PATIENT CLOSELY FOR ANY CHANGE OF CONDITION. Addendum: 03/20/17 at 1046 by GRICELDA RENDON RT Amended: Links added.
[2017-03-20] MEDS: VANCOMYCIN 1 GM in IV D5W 250 ML IV SCH (10:47)
[2017-03-20 11:55] LABS: ABG BASE EXCESS -4.6 mmol/L; ABG OXYGEN SATURATION 97.5 % (92.0-98.5); ABG PH 7.367 (7.350-7.450); ABG PO2 113.5 mmHg (75.0-100.0); AaDO2 130.3 mmHg; COHb 0.1 % (0.5-1.5); MetHb 0.2 % (0.0-1.5); O2Hb 97.2 % (94.0-97.0); SITE, ABG Left Brachial
[2017-03-20] MEDS: MICAFUNGIN SODIUM 100 MG in IV NS 0.9% 100 ML IV SCH (12:07)
[2017-03-20] MEDS: CEFEPIME 2 GM in IV D5W 100 ML IV SCH (12:07)
--- NOTE | 2017-03-20 12:50 | NUR ---
STAFF PHYSICAL THERAPIST: is in room, updated with pt.current status, nuerostatus, VS, ABG on CPAP, ordered: place pt on O2 T-piece flow, notified RT
--- NOTE | 2017-03-20 13:05 | NUR ---
FACILITIES MECHANICAL DESIGN ENGINEER: HD done/500ml out, SBP 121 now, continue titrate pressor down, is in room, updated with pt.current condition, ABG, HD, pressor, I/O. ID DECK MOLDER is also updated with all above, T 101.6 night episode, BMx1 today, WBC NMS schedule on Thursday and agree. DPM reevaluated pt., said: continue same w/c. Pt family was notified before re pt.condition, VS, orders, POC
--- NOTE | 2017-03-20 13:06 | NUR ---
TRANSIT DRIVER: previous note is error
--- NOTE | 2017-03-20 13:15 | NUR ---
RT PLACED PT ON T-PIECE WITH 40% FiO2 PER MD ORDER. BAKARI POND AWARE AND NOTIFIED. SpO2 98-99%. PT TOLERATING WELL AT THIS TIME. MONITORING THE PT CLOSELY FOR ANY CHANGE OF CONDITION. Addendum: 03/20/17 at 1321 by GRICELDA RENDON RT Amended: Links added.
--- NOTE | 2017-03-20 13:35 | NUR ---
FIELD SERVICES DIRECTOR: pt.family called/informed re pt VS, orders, T-pieceO2, orders, POC
--- NOTE | 2017-03-20 14:15 | NUR ---
HISTORIAN DRAMATIC ARTS: O2 sat. 94-97% on T-piece, RR 24-30, pt.is aware, but still weak, unable to follow commands well, restless occas., anxious, RT spoke with and reevaluated pt., ordered: place pt.back on CPAP
--- NOTE | 2017-03-20 14:20 | NUR ---
RT PLACED PT BACK ON CPAP 5, PSV 20, 40% PER MD ORDER. SALTY VILLEGAS NOTIFIED AND AWARE. WILL CONTINUE TO MONITOR THE PATIENT CLOSELY. Addendum: 03/20/17 at 1438 by GRICELDA RENDON RT Amended: Links added.
[2017-03-20] MEDS: PANTOPRAZOLE 40 MG VIAL IV SCH (17:17)
--- NOTE | 2017-03-20 17:55 | NUR ---
STEEL HANDLER: pt.is drowsy, reactive by touch, rest, SR, SBP over 90, O 2sat. 97-100%, no SOB, PM/skin/wounds care is done
[2017-03-21] VITALS (40 sets, daily range): BP systolic 88–135; BP diastolic 32–94
[2017-03-21 05:21] LABS: EOSINOPHILS % (AUTO) 0.1 % (0.0-6.0); HEMATOCRIT 22 % (33-45); HEMOGLOBIN 7.3 g/dL (11.5-14.8); LYMPHOCYTES # (AUTO) 1.8 /CMM (0.8-4.8); LYMPHOCYTES % (AUTO) 8.7 % (20.0-44.0); MEAN CORPUSCULAR HEMOGLOBIN 29 PG (26.0-33.0); MEAN CORPUSCULAR HGB CONC 33 g/dl (31.0-36.0); MEAN CORPUSCULAR VOLUME 87 fL (82-100); MONOCYTES # (AUTO) 0.8 /CMM (0.1-1.30); NEUTROPHILS # (AUTO) 17.9 /CMM (1.8-8.9); NEUTROPHILS % (AUTO) 87.2 % (43.0-81.0); PLATELET COUNT (AUTO) 119 /CMM (150-450); RDW COEFFICIENT OF VARIATION 18.3 (11.5-15.0); RED BLOOD CELL COUNT(AUTO) 2.53 MIL/uL (4.0-5.2); WHITE BLOOD COUNT (AUTO) 20.6 K/uL (4.3-11.0)
[2017-03-21 05:23] LABS: CALCIUM, SERUM 7.4 mg/dL (8.5-10.1); CREATININE 0.7 mg/dL (0.6-1.3); GLUCOSE 58 mg/dL (74-106); UREA NITROGEN, BLOOD 23 mg/dL (7-18)
[2017-03-21 05:35] LABS: CARBON DIOXIDE 21 mmol/L (21-32); CHLORIDE 108 mmol/L (98-107); POTASSIUM 4.2 mmol/L (3.5-5.1); SODIUM SERUM 137 mmol/L (136-145)
[2017-03-21 06:08] LABS: LYMPHOCYTES % (MANUAL) 3 % (16-48); METAMYELOCYTES % 1 % (0-0); MONOCYTES % (MANUAL) 5 % (0-11.0); NEUTROPHILS % (MANUAL) 91 (42-76)
--- NOTE | 2017-03-21 06:12 | NUR ---
PATIENT RECEIVED ON [facility] VENT WITH SETTINGS ORDERED BY MD KRISTI WELL. VENT ALARMS CHECKED & AUDIBLE THROUGH OUT ICU UNIT. CUFF PRESSURE CHECKED SOLAR SITE ASSESSMENT SPECIALIST. PT SUCTIONED FOR MOD AMOUNT OF SECRETIONS. B/S DIMINISHED. PATIENT APPEARS COMFORTABLE. AMBU BAG AT [facility]. MECHANICAL VENTILATOR PLUGGED INTO RED OUTLET. WILL CONTINUE TO MONITOR.
--- NOTE | 2017-03-21 07:49 | NUR ---
Intubated pt received on CPAP mode. 7.5 ETT secured at 22cm@ the lip. Vent is plugged into a red outlet, alarms are set and audible, and BVM is at bedside. Addendum: 03/21/17 at 0751 by MAICOL FRYE RT Amended: Links added.
--- NOTE | 2017-03-21 08:15 | NUR ---
CHERRY GROWER: pt.is awake, eyes contact+, very weak, can follow very simple commands, no grimacing, on wrists restraints, on CPAP, O2 sat. 98-100%, RR 20-24, SR, SBP 88-98 last 2 hrs, no IVF, low urine output, will s/w , BS 58 (05.00), nobody reported, Dextrose 50%-50ml ordered/will notify MD, RT updated/will take ABG, NPO status now d/t wean process/will start NGTF after flight test shop mechanic evaluation soon today
[2017-03-21] MEDS ORDERED: DEXTROSE 50%-WATER 50 ML DISP.SYRIN IVP ONE (08:25)
[2017-03-21 08:43] LABS: ABG BASE EXCESS -4.5 mmol/L; ABG OXYGEN SATURATION 93.4 % (92.0-98.5); ABG PCO2 32.9 mmHg (35.0-45.0); ABG PH 7.399 (7.350-7.450); ABG PO2 77.1 mmHg (75.0-100.0); AaDO2 170.3 mmHg; COHb 0.3 % (0.5-1.5); MetHb 0.5 % (0.0-1.5); O2Hb 92.7 % (94.0-97.0); PEEP,BG 5 cm H2O; SITE, ABG Right Radial; VENT MODE, BG cpap psv 20
[2017-03-21] MEDS: AMIODARONE HCL 200 MG TABLET PO SCH ×2 (10:09→21:48)
--- NOTE | 2017-03-21 11:00 | NUR ---
PROCESS CONTROL MANAGER: SR, O2 sat. 98-100% on CPAP, FiO2 40%, peep5, RR 18-26, SBP over 90, MAP 55-65, low urine output, WBC 20, T WNL, evaluated pt., ABG, no extubation for now, was in room, updated with all above, ordered to start NGTF, spoke with pt.family, charge nurse updated. Pt.daughter was in room before, notified re pt.VS, condition, orders, POC
[2017-03-21] MEDS: CEFEPIME 2 GM in IV D5W 100 ML IV SCH (11:51)
[2017-03-21] MEDS: MICAFUNGIN SODIUM 100 MG in IV NS 0.9% 100 ML IV SCH (11:54)
[2017-03-21] MEDS: FIBERSOURCE HN 1,000 ML BOTTLE GT PRN (12:22)
[2017-03-21] MEDS ORDERED: ACIDOPHILUS/BULGARICUS 1 EACH GRAN.PACK NG SCH (13:00)
--- NOTE | 2017-03-21 14:29 | NUR ---
TRASH TRUCK DRIVER: OGTF residual 5ml, continue TF
[2017-03-21] MEDS: ACIDOPHILUS/BULGARICUS 1 EACH TAB.CHEW NG SCH (17:03)
[2017-03-21] MEDS: PANTOPRAZOLE 40 MG VIAL IV SCH (17:03)
[2017-03-21] MEDS: PROSOURCE / PROSTAT (PYXIS) 30 ML UDC NG SCH (17:03)
--- NOTE | 2017-03-21 18:00 | NUR ---
TELECOMMUNICATIONS NETWORK ENGINEER: pt.is rest, eyes contact+, able to follow simple commands, but still very weak, on wrists restraints for self-extubation protection/able to touch ETT, SR, SBP over 90, O2 sat. 97-100% tolerated well for CPAP now, suctioned well, oliguria/will notify next nurse, was notified, PM,skin/wounds care is done, L.hip s/p surgery wound is intact, covered with strips, but small s/s oozing drainage, bruise/edema around surgical is with little resolving progress, pt.son in low called/got detailed report re pt.current status, VS, orders, POC
--- NOTE | 2017-03-21 18:01 | NUR ---
Intubated pt received on CPAP mode. Pt tolerated current vent settings fairly well. Vent is plugged into a red outlet, alarms are set and audible, and BVM is at bedside. Addendum: 03/21/17 at 1802 by MAICOL FRYE RT Amended: Links added.
--- NOTE | 2017-03-21 21:11 | NUR ---
pt received on vent via charted settings and route. ambu bag at bedside alarms set and audible. disconnect alarm checked. vent plugged into red outlet. pt has increased rr at this time. will continue to monitor Addendum: 03/21/17 at 2113 by NIRAJ BASILIO RT Amended: Links added.
[2017-03-21] MEDS: VANCOMYCIN 1 GM in IV D5W 250 ML IV SCH (21:47)
[2017-03-22] VITALS (35 sets, daily range): BP systolic 90–130; BP diastolic 31–66
[2017-03-22 04:55] LABS: EOSINOPHILS # (AUTO) 0.1 /CMM (0.0-0.7); EOSINOPHILS % (AUTO) 0.3 % (0.0-6.0); HEMATOCRIT 24 % (33-45); HEMOGLOBIN 7.7 g/dL (11.5-14.8); LYMPHOCYTES # (AUTO) 2.2 /CMM (0.8-4.8); LYMPHOCYTES % (AUTO) 8.7 % (20.0-44.0); MEAN CORPUSCULAR HEMOGLOBIN 28 PG (26.0-33.0); MEAN CORPUSCULAR HGB CONC 33 g/dl (31.0-36.0); MEAN CORPUSCULAR VOLUME 88 fL (82-100); MONOCYTES # (AUTO) 1.2 /CMM (0.1-1.30); MONOCYTES % (AUTO) 4.8 % (2.0-12.0); NEUTROPHILS # (AUTO) 22.1 /CMM (1.8-8.9); NEUTROPHILS % (AUTO) 86.2 % (43.0-81.0); PLATELET COUNT (AUTO) 175 /CMM (150-450); RDW COEFFICIENT OF VARIATION 18.6 (11.5-15.0); RED BLOOD CELL COUNT(AUTO) 2.69 MIL/uL (4.0-5.2); WHITE BLOOD COUNT (AUTO) 25.6 K/uL (4.3-11.0)
[2017-03-22 05:04] LABS: CALCIUM, SERUM 7.8 mg/dL (8.5-10.1); CARBON DIOXIDE 23 mmol/L (21-32); CHLORIDE 107 mmol/L (98-107); GLUCOSE 154 mg/dL (74-106); POTASSIUM 4.2 mmol/L (3.5-5.1); SODIUM SERUM 135 mmol/L (136-145); UREA NITROGEN, BLOOD 31 mg/dL (7-18)
[2017-03-22 06:08] LABS: LYMPHOCYTES % (MANUAL) 9 % (16-48); MONOCYTES % (MANUAL) 5 % (0-11.0); NEUTROPHILS % (MANUAL) 86 (42-76)
--- NOTE | 2017-03-22 06:10 | NUR ---
SAMPLE PASTER DF MD PRATHER CARDIOLOGY AT BEDSIDE LASIX 40 MG IVP ORDERED.
[2017-03-22] MEDS ORDERED: FUROSEMIDE 40 MG/4 ML VIAL ONE (06:33)
[2017-03-22] MEDS: FUROSEMIDE 40 MG/4 ML VIAL IV SCH ×2 (06:36→10:48)
[2017-03-22] MEDS: FIBERSOURCE HN 1,000 ML BOTTLE GT PRN (06:36)
--- NOTE | 2017-03-22 07:57 | NUR ---
RT PATIENT REC'D ORALLY INTUBATED ON CPAP MODE VENTILATION WITH NOTED DISTRESS WITH RR IN THE 40'S AND DESATURATION. BAKARI SOFIA AWARE. VENT ALARMS CHECKED + AUDIBLE. AMBU BAG AT HOB Addendum: 03/22/17 at 0800 by NEIL ALLAN RT Amended: Links added.
--- NOTE | 2017-03-22 08:00 | NUR ---
BAGGAGE CHECKER NOTE RECEIVED PATIENT IN BED WITH ETT TUBE IN PLACE WITH 7.0 SIZE AND LIP SIZE 23 CM ,NOTED PATIENT WIT LABORED RESPIRATION, SAT 91 % ,RT AT BEDSIDE AND PER RT , CHANGED MODE FROM C PAP TO AC MODE TV 45O PEEP OF 5 AC 16 ,WILL CON TO MONITOR CLOSELY , PATIENT STILL LETHARGIC BUT OPENED HER EYES WHEN CALLING HER NAME AND RESPONSE TO TACITLY STIMULI, WITH SU CATH TO GRAVITY WITH YELLOW COLOR URINE , ON OG TUBE WITH FIBERSOURCE G TUBE FEEDING AT 50 ML PER HOUR ,KEEP HOB ELEVATED AT ALL TIME, ON [employer] MAT[facility] RT AC PICC LINE IN PLCE NO S\S INFECTION NOTED, BED IN LOWEST AND LOCKED POSITION , TELE MONITOR SR 72 Addendum: 03/22/17 at 1040 by BISMARK MARTINEZ RN ETT SIZE 7.5
[2017-03-22] MEDS: ACIDOPHILUS/BULGARICUS 1 EACH TAB.CHEW NG SCH ×3 (08:19→16:32)
[2017-03-22] MEDS: AMIODARONE HCL 200 MG TABLET PO SCH ×2 (08:20→21:10)
[2017-03-22] MEDS: PROSOURCE / PROSTAT (PYXIS) 30 ML UDC NG SCH ×2 (08:20→16:33)
--- NOTE | 2017-03-22 10:40 | NUR ---
ICU RNNNOTE SEEN BY DR FERREIRA LOOM INSPECTOR , NOTIFIED THAT EARLIER IN AM PATIENT HAS LABORED RESPIRATION WITH SAT 91-92% . PATIENT OPEN HER EYES WHEN VALENTINA HER NAME ,AWARE THAT CHANGED VENT SETTING TO AC MODE ,STATED THAT WILL CONT TO MONITOR AND CONT ON AC MODE AT THIS TIME
[2017-03-22] MEDS: CEFEPIME 2 GM in IV D5W 100 ML IV SCH (11:27)
[2017-03-22] MEDS: MICAFUNGIN SODIUM 100 MG in IV NS 0.9% 100 ML IV SCH (12:13)
--- NOTE | 2017-03-22 13:05 | NUR ---
DISPLAY DIRECTOR NOTE CHARGE NURSE SPOKE WITH DR PRATHER NOTIFIED THAT AFTER FIRST DOSE OF LASIX 40 MG IVP , BP DROPPED TO 92\37 ,ALL TOGETHER ORDERED X3 DOSES OF LASIX,PER DR PRATHER OK TO D\C LASIX, NEW ORDER CARRIED AWARE THAT URINE OUTPUT AT THIS TIME 700 ML
--- NOTE | 2017-03-22 15:06 | NUR ---
QUILLER HAND NOTE KEEP CLEAN DRY , TURN REPOSITION Q2 HOUR DONE , RT AT BEDSIDE CONT TO MONITOR CLOSELY
--- NOTE | 2017-03-22 15:44 | NUR ---
SHIFT PRODUCTION ASSOCIATE NOTE STILL ATTEMPTING TO REMOVE ETT TUBE , AT RISK FOR INJURY SELF , UNABLE TO REMOVE SOFT RESTRAIN AT THIS TIME , WILL CONT TO MONITOR CLOSELY
[2017-03-22] MEDS: PANTOPRAZOLE 40 MG VIAL IV SCH (17:01)
--- NOTE | 2017-03-22 18:11 | NUR ---
CALL CENTER DIRECTOR NOTE RT AT BEDSIDE ,SUCTION DONE VIA ETT TUBE ,OBTAINED MOD AMT YELLOW THIN SECRETION , KEEP CLEAN DRY , TURN REPOSITION Q2 HOUR ,FAMILY AT BEDSIDE .BOTH HAND KEEP ELEVATED ON PILLOW TOLERATED TO DECREASE EDEMA, CALL LIGHT WITHIN REACH
--- NOTE | 2017-03-22 18:45 | NUR ---
GRAPHIC USER INTERFACE DESIGNER NOTE PATIENT IN BED , ALL NEEDS ATTENDED ,WITH ETT TUBE AND OG TUBE ORDERED, TOLERATED FEEDING WELL, NO RESIDUAL NOTED, KEEP CLEAN DRY , WILL CONT TO MONITOR CLOSELY
[2017-03-22] MEDS: HYDROCODONE/APAP 5/325MG 1 EACH TABLET PO PRN (22:31)
--- NOTE | 2017-03-22 22:31 | NUR ---
PADDED PRODUCTS FINISHER PT APPEARING RESTLESS; PONTING TO LEFT HIP; ASKED IF PT WAS IN PAIN PER SENIOR POWER PLANT OPERATOR PT NODDED YES; MEDICATED WITH NORCO 5/325. CONTINUE TO MONITOR.
[2017-03-23] VITALS (42 sets, daily range): BP systolic 91–113; BP diastolic 26–65
[2017-03-23] MEDS: FIBERSOURCE HN 1,000 ML BOTTLE GT PRN (04:03)
[2017-03-23 05:19] LABS: EOSINOPHILS % (AUTO) 0.1 % (0.0-6.0); LYMPHOCYTES # (AUTO) 1.7 /CMM (0.8-4.8); LYMPHOCYTES % (AUTO) 6.3 % (20.0-44.0); MEAN CORPUSCULAR HEMOGLOBIN 29 PG (26.0-33.0); MEAN CORPUSCULAR HGB CONC 33 g/dl (31.0-36.0); MEAN CORPUSCULAR VOLUME 87 fL (82-100); MONOCYTES # (AUTO) 0.6 /CMM (0.1-1.30); MONOCYTES % (AUTO) 2.2 % (2.0-12.0); NEUTROPHILS # (AUTO) 24.7 /CMM (1.8-8.9); NEUTROPHILS % (AUTO) 91.4 % (43.0-81.0); PLATELET COUNT (AUTO) 113 /CMM (150-450); RDW COEFFICIENT OF VARIATION 17.8 (11.5-15.0); RED BLOOD CELL COUNT(AUTO) 2.28 MIL/uL (4.0-5.2); WHITE BLOOD COUNT (AUTO) 27.1 K/uL (4.3-11.0)
[2017-03-23 05:28] LABS: CALCIUM, SERUM 7.6 mg/dL (8.5-10.1); CARBON DIOXIDE 23 mmol/L (21-32); CHLORIDE 107 mmol/L (98-107); CREATININE 1.1 mg/dL (0.6-1.3); GLUCOSE 118 mg/dL (74-106); POTASSIUM 3.9 mmol/L (3.5-5.1); SODIUM SERUM 136 mmol/L (136-145); UREA NITROGEN, BLOOD 40 mg/dL (7-18)
[2017-03-23 05:50] LABS: HEMATOCRIT 20 % (33-45); HEMOGLOBIN 6.6 g/dL (11.5-14.8)
--- NOTE | 2017-03-23 06:02 | NUR ---
KETTLE FIRER HG 6.6; NO ACTIVE BLEEDING NOTED; CALL PLACED TO MD.
[2017-03-23 06:15] LABS: LYMPHOCYTES % (MANUAL) 7 % (16-48); MONOCYTES % (MANUAL) 5 % (0-11.0); NEUTROPHILS % (MANUAL) 88 (42-76)
--- NOTE | 2017-03-23 07:10 | NUR ---
GAME TECHNICIAN- INITIAL NOTE RECEIVED PT AWAKE, ALERT AND ABLE TO FOLLOW COMMANDS. PT ORALLY INTUBATED ETT 7.5, 22 @ THE LIP. PT CURRENTLY ON AC MODE, RESPIRATIONS EVEN AND UNLABORED, NO SOB OR DISTRESS PRESENT. BEDSIDE MONITOR REVEALS CONTROLLED A-FIB. BILATERAL SOFT WRIST RESTRAINTS IN PLACE. OGT PRESENT, RUNNING FIBERSOURCE @ 50 ML/HR. SU CATHETER DRAINING TO GRAVITY. WINTER PICC LINE PRESENT. SAFETY MEASURES TAKEN: BED LOCKED AND IN LOW POSITION, SIDE RAILS UP X2, BED ALARM ON AND CALL LIGHT WITHIN REACH, WILL CONTINUE TO MONITOR.
[2017-03-23 08:04] LABS: HEMOGLOBIN 6.7 g/dL (11.5-14.8)
--- NOTE | 2017-03-23 08:04 | NUR ---
SLEEVE WHEEL MAKER- REPEAT H&H= 6.7. 0808- DR. ROSEN ORDERED FOR 1 UNIT PRBC TO BE GIVEN. 0845- CALLED & LEFT MESSAGE FOR PT'S DAUGHTER, KAMILLA SINGH FOR BLOOD TRANSFUSION CONSENT. 0954- PT'S SON IN LAW RETURNED CALL, NORA SINGH. OBTAINED TELEPHONE CONSENT FOR BLOOD TRANSFUSION. CONFIRMED WITH JAIME VILLEGAS.
--- NOTE | 2017-03-23 08:05 | NUR ---
RT PATIENT REC'D ORALLY INTUBATED ON [facility] VENT WITH SETTINGS SET BY MD KRISTI MEYERS. VENT ALARMS CHECKED+ AUDIBLE. CUFF PRESSURE CHECKED PUBLIC HEALTH SOCIAL WORKER. SX'D WITH SMALL AMT JAQUEZ SEMITHICK SECRETIONS. B/S DIM. AMBU BAG AT [facility]. CONT CURRENT PLAN OF RESP CARE. Addendum: 03/23/17 at 0911 by NEIL ALLAN RT Amended: Links added.
--- NOTE | 2017-03-23 08:35 | NUR ---
PARTS COUNTER SPECIALIST- CALLED [facility] INFECTIOUS DISEASE RN. INFORMED RN PT CURRENTLY POSITIVE FOR ACINETOBACTER AND H. INFLUENZAE IN THE SPUTUM. PER FROY, PT TO BE PLACED ON DROPLET & CONTACT ISOLATIONS. CHARGE NURSE AWARE. WILL CONTINUE TO MONITOR.
--- NOTE | 2017-03-23 09:05 | NUR ---
ASSAULT AMPHIBIOUS VEHICLE CREWMAN- DR. ROSEN AT BEDSIDE. UPDATED MD ON PT'S CONDITION. INFORMED MD PT'S CHEST X-RAY THIS AM RECOMMENDED TO ADVANCE OGT BY 8 CM-10 CM. OK PER MD TO ADVANCE OGT TUBE. 0910- OGT ADVANCED BY 8 CM TO 43 CM. CONTINUES ON TUBE FEEDINGS. WILL CONTINUE TO MONITOR.
[2017-03-23] MEDS: ACIDOPHILUS/BULGARICUS 1 EACH TAB.CHEW NG SCH ×3 (09:07→16:25)
[2017-03-23] MEDS: AMIODARONE HCL 200 MG TABLET PO SCH ×2 (09:08→21:15)
[2017-03-23] MEDS: PROSOURCE / PROSTAT (PYXIS) 30 ML UDC NG SCH ×2 (09:08→16:24)
--- NOTE | 2017-03-23 10:40 | NUR ---
COMMISSION SALES ASSOCIATE- DR. RAHMAN AT BEDSIDE. UPDATED MD ON PT'S CONDITION. MD AWARE PT ON AC MODE. NO NEW ORDERS RECEIVED. WILL CONTINUE TO MONITOR.
[2017-03-23] MEDS: AZITHROMYCIN 500 MG in IV D5W 250 ML IV SCH (11:15)
[2017-03-23] MEDS: CEFEPIME 2 GM in IV D5W 100 ML IV SCH (12:02)
[2017-03-23] MEDS: MICAFUNGIN SODIUM 100 MG in IV NS 0.9% 100 ML IV SCH (13:28)
[2017-03-23] MEDS: HYDROCODONE/APAP 5/325MG 1 EACH TABLET PO PRN (16:25)
[2017-03-23 16:33] LABS: HEMOGLOBIN 9.3 g/dL (11.5-14.8)
[2017-03-23] MEDS: PANTOPRAZOLE 40 MG VIAL IV SCH (17:36)
--- NOTE | 2017-03-23 18:00 | NUR ---
MACHINE OPERATOR HOP WORKER- DR. ROSEN INFORMED PT'S URINE OUTPUT FOR 12 HOURS IS 175 ML. NO NEW ORDERS RECEIVED AT THIS TIME. WILL CONTINUE TO MONITOR.
--- NOTE | 2017-03-23 19:00 | NUR ---
PRIVATE EYE NOTES Received patient orally intubated,awake,alert.on the ventilator on AC mode,breathing regular,nonlabored,saturating in the high 90's now at 98 %.Able to slightly move arms,maintained on bilateral soft wrist restraints to preven self extubation,grimaces to pain,+ strong cough reflex.Extremely edematous (generalyzed).PICC line on WINTER,OGT with on going feeding(Aspiration precaution observed). Comfort care done,needs attended.
--- NOTE | 2017-03-23 20:16 | NUR ---
PT RECEIVED INTUBATED ON VENT. NO RESP DISTRESS NOTED. PT TOLERATING JOE SETTINGS. SX'D AND LAVAGED FOR SML AMT OF THICK JAQUEZ SECRETIONS. VENT ALARMS SET AND AUDIBLE. ETT SECURED, CUFF SUPERVISOR CONCRETE STONE FABRICATING. VENT PLUGGED INTO RED OUTLET. WILL CONTINUE TO MONITOR. Addendum: 03/23/17 at 2018 by RAVINDER CARDOZA RT Amended: Links added.
[2017-03-23] MEDS: VANCOMYCIN 1 GM in IV D5W 250 ML IV SCH (21:14)
--- NOTE | 2017-03-23 22:00 | NUR ---
AUTOMOTIVE GLAZIER NOTES Stable,not in distress but getting agitated,.PM bath rendered,comfort care done.Sacral pressure ulcer care done.Tolerated turning/moving.
[2017-03-24] VITALS (35 sets, daily range): BP systolic 93–112; BP diastolic 34–48
--- NOTE | 2017-03-24 | NUR ---
INHALATION THERAPY TEACHER NOTES Stable,status unchanged.Tolerating feeding.Tolerating vent settings.comfort care done.
[2017-03-24] MEDS: FIBERSOURCE HN 1,000 ML BOTTLE GT PRN ×2 (01:21→18:17)
[2017-03-24 04:56] LABS: EOSINOPHILS % (AUTO) 0.1 % (0.0-6.0); HEMATOCRIT 26 % (33-45); HEMOGLOBIN 8.5 g/dL (11.5-14.8); LYMPHOCYTES # (AUTO) 1.7 /CMM (0.8-4.8); LYMPHOCYTES % (AUTO) 5.3 % (20.0-44.0); MEAN CORPUSCULAR HEMOGLOBIN 30 PG (26.0-33.0); MEAN CORPUSCULAR HGB CONC 33 g/dl (31.0-36.0); MEAN CORPUSCULAR VOLUME 88 fL (82-100); MONOCYTES # (AUTO) 0.9 /CMM (0.1-1.30); MONOCYTES % (AUTO) 2.6 % (2.0-12.0); NEUTROPHILS # (AUTO) 30.1 /CMM (1.8-8.9); PLATELET COUNT (AUTO) 111 /CMM (150-450); RDW COEFFICIENT OF VARIATION 17.2 (11.5-15.0); RED BLOOD CELL COUNT(AUTO) 2.88 MIL/uL (4.0-5.2)
[2017-03-24 05:06] LABS: WHITE BLOOD COUNT (AUTO) 32.8 K/uL (4.3-11.0)
[2017-03-24 05:14] LABS: CALCIUM, SERUM 7.7 mg/dL (8.5-10.1); CARBON DIOXIDE 23 mmol/L (21-32); CHLORIDE 105 mmol/L (98-107); GLUCOSE 104 mg/dL (74-106); POTASSIUM 4.4 mmol/L (3.5-5.1); SODIUM SERUM 135 mmol/L (136-145); UREA NITROGEN, BLOOD 48 mg/dL (7-18)
[2017-03-24 05:29] LABS: LYMPHOCYTES % (MANUAL) 6 % (16-48); MONOCYTES % (MANUAL) 2 % (0-11.0); NEUTROPHILS % (MANUAL) 92 (42-76)
--- NOTE | 2017-03-24 07:00 | NUR ---
MARKETING INTELLIGENCE ANALYST nOTES Patient stable,endorsed to day shift RN.
--- NOTE | 2017-03-24 07:02 | NUR ---
RT START NOTE, PT. 81 Y OLD FEMALE REC. ORALLY INTUBATED ETT # 7.5 @ 22 CM LIPLINE. ON VENT WITH NOTED AC MODE ALARMS ARE SET AND FUNCTIONAL. EQUAL CHEST RISE NOTED. B/S BILATERALLY RALES AND SUX'D FOR SMALL AMT OF YELLOW SECRETIONS, PT. REMAIN STABLE AND CONTINUE FOR CARE AND MONITORING CLOSELY. AMBU BAG REMAIN AT THE BEDSIDE. VENT PLUGGED INTO RED OUTLET. Addendum: 03/24/17 at 0818 by SALTY HACKETT RT Amended: Links added.
--- NOTE | 2017-03-24 07:07 | NUR ---
WIRELESS SALES ASSOCIATE- INITIAL NOTE RECEIVED PT AWAKE, ALERT AND ABLE TO FOLLOW COMMANDS. PT ORALLY INTUBATED ETT 7.5, 22 CM @ THE LIP. RESPIRATIONS EVEN AND UNLABORED, NO SOB OR DISTRESS PRESENT. BEDSIDE MONITOR REVEALS CONTROLLED A-FIB. BILATERAL SOFT WRIST RESTRAINTS IN PLACE. OGT PRESENT, RUNNING FIBERSOURCE @ 50 ML/HR. SU CATHETER DRAINING TO GRAVITY. WINTER PICC LINE PRESENT RUNNING NS @ TKO. SAFETY MEASURES TAKEN: BED LOCKED AND IN LOW POSITION, SIDE RAILS UP X2, BED ALARM ON AND CALL LIGHT WITHIN REACH, WILL CONTINUE TO MONITOR.
[2017-03-24] MEDS: AMIODARONE HCL 200 MG TABLET PO SCH ×2 (08:48→22:25)
[2017-03-24] MEDS: ACIDOPHILUS/BULGARICUS 1 EACH TAB.CHEW NG SCH ×3 (08:48→17:31)
[2017-03-24] MEDS: PROSOURCE / PROSTAT (PYXIS) 30 ML UDC NG SCH ×2 (08:48→17:30)
[2017-03-24] MEDS: AZITHROMYCIN 500 MG in IV D5W 250 ML IV SCH (09:21)
--- NOTE | 2017-03-24 10:37 | NUR ---
ET-TUBE PULLED BACK 2 CM PER MD ORDER ( DR. RAHMAN ) @ THE BEDSIDE. ETT SECURED AT 20 CM LEFT LIP LINE.
[2017-03-24] MEDS: CEFEPIME 2 GM in IV D5W 100 ML IV SCH (13:13)
--- NOTE | 2017-03-24 16:30 | NUR ---
TIME LOCK EXPERT- DR. AGUILAR MADE AWARE STOOL OB WAS +. NO NEW ORDERS RECEIVED AT THIS TIME. WILL CONTINUE TO MONITOR.
[2017-03-24] MEDS: PANTOPRAZOLE 40 MG VIAL IV SCH (17:30)
[2017-03-24] MEDS: HYDROCODONE/APAP 5/325MG 1 EACH TABLET PO PRN (17:31)
--- NOTE | 2017-03-24 17:59 | NUR ---
RT END OF THE SHIFT REPORT, PT. 81 Y OLD FEMALE REMAIN RESPONSIVE, REMAIN ORALLY INTUBATED ETT # 7.5 @ 20 CM LIPLINE, ON VENT WITH NOTED AC MODE ALARMS ARE SET AND FUNCTIONAL. EQUAL CHEST RISE NOTED. B/S BILATERALLY RALES AND SUX'D FOR SMALL AMT OF YELLOWISH/ REDDISH SECRETIONS, HME CHANGED. NO CHANGES OR ABG NEEDED PER DR. RAHMAN WITH FAMILY MEMBERS AT THE BEDSIDE. T/O DAY ETT PULLED BACK 2 CM PER MD ORDER AT THE BEDSIDE. PT. REMAIN STABLE AND CONTINUE FOR CARE AND MONITORING CLOSELY. AMBU BAG REMAIN AT THE BEDSIDE. VENT PLUGGED INTO RED OUTLET. REPORT WILL BE PASS TO PM SHIFT. Addendum: 03/24/17 at 1802 by SALTY HACKETT RT Amended: Links added.
--- NOTE | 2017-03-24 19:00 | NUR ---
DIETITIAN ASSISTANT NOTES Received patient orally intubated,awake,alert,gets a little restless ,maintained on bilateral soft wrist restraints to prevent self extubation.OET on the ventilator on AC mode,tolerating settings well.PICC line via WINTER ,feeding via OGT with minimal residuals.Aspiration Precaution observed.On Contact and Droplet Precaution.Comfort care done,needs attended.
--- NOTE | 2017-03-24 20:30 | NUR ---
BULK MAIL CLERK NOTES Lab came to draw Blood Culture x 2 sets.
--- NOTE | 2017-03-24 20:58 | NUR ---
PT RECEIVED INTUBATED ON VENT. NO RESP DISTRESS NOTED. PT TOLERATING JOE SETTINGS. SX'D AND LAVAGED FOR SML AMT OF THICK JAQUEZ SECRETIONS. VENT ALARMS SET AND AUDIBLE. ETT SECURED, CUFF RN PERITONEAL DIALYSIS. VENT PLUGGED INTO RED OUTLET. WILL CONTINUE TO MONITOR. Addendum: 03/24/17 at 2058 by RAVINDER CARDOZA RT Amended: Links added.
[2017-03-25] VITALS (37 sets, daily range): BP systolic 89–120; BP diastolic 38–57
--- NOTE | 2017-03-25 | NUR ---
MAP MOUNTER NOTES Remains stable,awakens on and off,gets restless at times.Comfort care done,needs attended.PM care done.
[2017-03-25] MEDS: HYDROCODONE/APAP 5/325MG 1 EACH TABLET PO PRN ×5 (01:13→22:46)
[2017-03-25 04:59] LABS: EOSINOPHILS % (AUTO) 0.1 % (0.0-6.0); HEMATOCRIT 25 % (33-45); HEMOGLOBIN 8.2 g/dL (11.5-14.8); LYMPHOCYTES # (AUTO) 1.4 /CMM (0.8-4.8); LYMPHOCYTES % (AUTO) 4.3 % (20.0-44.0); MEAN CORPUSCULAR HEMOGLOBIN 30 PG (26.0-33.0); MEAN CORPUSCULAR HGB CONC 33 g/dl (31.0-36.0); MEAN CORPUSCULAR VOLUME 89 fL (82-100); MONOCYTES # (AUTO) 0.9 /CMM (0.1-1.30); MONOCYTES % (AUTO) 2.7 % (2.0-12.0); NEUTROPHILS % (AUTO) 92.9 % (43.0-81.0); PLATELET COUNT (AUTO) 94 /CMM (150-450); RDW COEFFICIENT OF VARIATION 17.2 (11.5-15.0); RED BLOOD CELL COUNT(AUTO) 2.77 MIL/uL (4.0-5.2)
[2017-03-25 05:14] LABS: CALCIUM, SERUM 7.8 mg/dL (8.5-10.1); CARBON DIOXIDE 27 mmol/L (21-32); CHLORIDE 106 mmol/L (98-107); CREATININE 1.1 mg/dL (0.6-1.3); GLUCOSE 102 mg/dL (74-106); POTASSIUM 4.6 mmol/L (3.5-5.1); SODIUM SERUM 135 mmol/L (136-145); UREA NITROGEN, BLOOD 55 mg/dL (7-18)
[2017-03-25 05:31] LABS: WHITE BLOOD COUNT (AUTO) 33.4 K/uL (4.3-11.0)
[2017-03-25 06:02] LABS: BAND % (MANUAL) 1 % (0.0-5.0); LYMPHOCYTES % (MANUAL) 2 % (16-48); MONOCYTES % (MANUAL) 4 % (0-11.0); NEUTROPHILS % (MANUAL) 93 (42-76)
--- NOTE | 2017-03-25 07:00 | NUR ---
BAY STOCKER NOTES 0400 AM bath done,remains stable,tolerated turning/moving with no distress. 0600 Status unchanged,stable. 0700 Report given to day shift RN,patient remains stable.Family to decide on possible tracheostomy ,MD discussed with family yesterday.
--- NOTE | 2017-03-25 07:45 | NUR ---
ICU/RN - Notes Received pt in bed with eyes closed, arousable to verbal and tactile stimuli. Orally intubated to mechanical vent with settings as ordered. Pt able to follow commands. OG tube intact, tolerating tube feeding well, no residuals noted. PICC line patent and intact. Safety and comfort measures in place. Will continue to monitor pt closely.
[2017-03-25] MEDS: ACIDOPHILUS/BULGARICUS 1 EACH TAB.CHEW NG SCH ×3 (08:21→17:00)
[2017-03-25] MEDS: PROSOURCE / PROSTAT (PYXIS) 30 ML UDC NG SCH ×2 (08:21→17:00)
[2017-03-25] MEDS: AMIODARONE HCL 200 MG TABLET PO SCH ×2 (08:21→20:28)
[2017-03-25 08:31] LABS: ABG BASE EXCESS -2.6 mmol/L; ABG OXYGEN SATURATION 93.8 % (92.0-98.5); ABG PCO2 35.1 mmHg (35.0-45.0); ABG PH 7.408 (7.350-7.450); ABG PO2 71.4 mmHg (75.0-100.0); AaDO2 173.4 mmHg; COHb 0.6 % (0.5-1.5); MetHb 0.1 % (0.0-1.5); O2Hb 93.1 % (94.0-97.0); PEEP,BG 5 cm H2O; SITE, ABG Left Radial; VENT MODE, BG AC 16 450 40% +5; VT, ABG 450 mL
[2017-03-25] MEDS: AZITHROMYCIN 500 MG in IV D5W 250 ML IV SCH (09:16)
--- NOTE | 2017-03-25 09:35 | NUR ---
ICU/RN - Notes Pt awake, appears in discomfort, waving arms. When asked if in pain, nods yes. Recent left hip surgery noted. Pt medicated with [place] 5/325 1 tab as ordered for PRN pain. Comfort measures in place. Will reassess pain accordingly.
[2017-03-25] MEDS: FIBERSOURCE HN 1,000 ML BOTTLE GT PRN (11:22)
[2017-03-25] MEDS: CEFEPIME 2 GM in IV D5W 100 ML IV SCH (13:02)
--- NOTE | 2017-03-25 13:40 | NUR ---
ICU/RN - Notes Dr Guerra at bedside for evaluation, speaking with pt's son-in-law Hasmukh regarding pt's need for Tracheostomy. Per family, need a few days to make definitive decision.
--- NOTE | 2017-03-25 15:33 | NUR ---
ICU/RN - Notes Pt appears in discomfort. When asked if in pain, nods yes. Pt medicated with [place] 5/325 1 tab as ordered for PRN pain. Comfort measures in place. Will reassess pain accordingly.
[2017-03-25] MEDS: PANTOPRAZOLE 40 MG VIAL IV SCH (17:00)
--- NOTE | 2017-03-25 17:58 | NUR ---
Pt received on mechanical vent, tolerated current vent settings well. No changes made. Vent is plugged into a red outlet, alarms are set and audible, and BVM is at bedside. Addendum: 03/25/17 at 1759 by MAICOL FRYE RT Amended: Links added.
--- NOTE | 2017-03-25 19:30 | NUR ---
OUTSIDE FOOD SERVER: RECEIVED ORALLY INTUBATED PT WT VENT SETTINGS ORDERED. NO ACUTE DISTRESS. NO EVIDENCE OR C/O PAIN OR DISCOMFORT AT THIS TIME. OPENS EYES WHEN CALLED BY NAME OR TOUCHED, FOLLOWS SIMPLE COMMANDS. SR WT 1ST DEGREE HB ON REINFORCING STEEL WORKER WIRE MESH. AFEBRILE. OGT RUNNING FS AT 50ML/HR WT 50ML RESIDUAL. WINTER PICC TKO WT NO S/S OF COMPLICATIONS. F/C PATENT AND INTACT DRAINING MINIMAL AMT. OF CLOUDY RICARDO COLORED URINE. BILAT. SOFT WRIST RESTRAINTS IN PLACE FOR EPISODES OF TRYING TO REACH TUBINGS. GOOD CIRCULATION NOTED AND WT NO NEW SKIN BREAKDOWN. HOB ELEVATED AT 35 DEGREES. SAFETY AND ASPIRATION PRECAUTIONS NOTED. WILL CONTINUE TO MONITOR.
[2017-03-25] MEDS: MICAFUNGIN SODIUM 100 MG in IV NS 0.9% 100 ML IV SCH (20:27)
[2017-03-25] MEDS: VANCOMYCIN 1 GM in IV D5W 250 ML IV SCH (21:00)
[2017-03-26] VITALS (66 sets, daily range): BP systolic 66–120; BP diastolic 30–77
--- NOTE | 2017-03-26 00:15 | NUR ---
AZURE PRINCIPAL SOLUTION SPECIALIST: NO REJI. NO ACUTE DISTRESS. NO EVIDENCE OF DISCOMFORT. VS WITHIN HER BASELINE. REPOSITIONED FOR COMFORT.
--- NOTE | 2017-03-26 04:15 | NUR ---
SNORKELLING INSTRUCTOR: NOTED DESATURATION IN LOW 90s SHORTLY AFTER BED BATH. HOB ELEVATED AT 45 DEGREES. SUCTIONED ORALLY AND VIA ETT WT SMALL AMT. OF JAQUEZ THIN SECRETIONS. FI02 INCREASED TO 50%. WILL CONTINUE TO MONITOR.
[2017-03-26] MEDS: IV NS 0.9% 100 ML BAG IV PRN (04:20)
[2017-03-26 05:05] LABS: EOSINOPHILS % (AUTO) 0.1 % (0.0-6.0); HEMATOCRIT 25 % (33-45); HEMOGLOBIN 8.1 g/dL (11.5-14.8); LYMPHOCYTES # (AUTO) 1.4 /CMM (0.8-4.8); LYMPHOCYTES % (AUTO) 3.7 % (20.0-44.0); MEAN CORPUSCULAR HEMOGLOBIN 30 PG (26.0-33.0); MEAN CORPUSCULAR HGB CONC 33 g/dl (31.0-36.0); MEAN CORPUSCULAR VOLUME 89 fL (82-100); MONOCYTES # (AUTO) 0.4 /CMM (0.1-1.30); MONOCYTES % (AUTO) 1.1 % (2.0-12.0); NEUTROPHILS # (AUTO) 35.6 /CMM (1.8-8.9); NEUTROPHILS % (AUTO) 95.1 % (43.0-81.0); PLATELET COUNT (AUTO) 99 /CMM (150-450); RDW COEFFICIENT OF VARIATION 18.2 (11.5-15.0); RED BLOOD CELL COUNT(AUTO) 2.74 MIL/uL (4.0-5.2)
[2017-03-26 05:28] LABS: CALCIUM, SERUM 8.2 mg/dL (8.5-10.1); CARBON DIOXIDE 25 mmol/L (21-32); CHLORIDE 104 mmol/L (98-107); CREATININE 1.2 mg/dL (0.6-1.3); GLUCOSE 116 mg/dL (74-106); PHOSPHORUS 3.5 mg/dL (2.5-4.9); SODIUM SERUM 130 mmol/L (136-145); UREA NITROGEN, BLOOD 69 mg/dL (7-18)
[2017-03-26 05:30] LABS: WHITE BLOOD COUNT (AUTO) 37.4 K/uL (4.3-11.0)
[2017-03-26 05:47] LABS: BAND % (MANUAL) 1 % (0.0-5.0); LYMPHOCYTES % (MANUAL) 5 % (16-48); MONOCYTES % (MANUAL) 5 % (0-11.0); NEUTROPHILS % (MANUAL) 89 (42-76)
--- NOTE | 2017-03-26 06:40 | NUR ---
PACKAGE DELIVERY ROOM SERVICE RUNNER: STILL ON 50% FI02 WT NO ACUTE DISTRESS. NO EVIDENCE OF DISCOMFORT OR C/O PAIN. EYES CLOSED, AROUSES EASILY. VS WITHIN HER BASELINE. ASPIRATION AND SAFETY PRECAUTIONS NOTED AT ALL TIMES.
[2017-03-26] MEDS: ACIDOPHILUS/BULGARICUS 1 EACH TAB.CHEW NG SCH ×3 (08:20→17:19)
[2017-03-26] MEDS: HYDROCODONE/APAP 5/325MG 1 EACH TABLET PO PRN (08:21)
[2017-03-26] MEDS: AMIODARONE HCL 200 MG TABLET PO SCH ×2 (08:21→22:07)
[2017-03-26] MEDS: PROSOURCE / PROSTAT (PYXIS) 30 ML UDC NG SCH ×2 (08:23→17:18)
[2017-03-26] MEDS: LORAZEPAM INJ 2 MG/ML VIAL IV PRN (10:56)
[2017-03-26] MEDS: HYDROMORPHONE 1 MG/1 ML DISP.SYRIN IV PRN ×2 (10:56→18:15)
[2017-03-26] MEDS ORDERED: PROPOFOL 100 ML IV PRN (12:00)
[2017-03-26] MEDS: CEFEPIME 2 GM in IV D5W 100 ML IV SCH (12:11)
[2017-03-26] MEDS: NOREPINEPHRINE 16 MG in IV D5W 500 ML IV PRN (12:37)
[2017-03-26] MEDS: FIBERSOURCE HN 1,000 ML BOTTLE GT PRN (12:38)
--- NOTE | 2017-03-26 13:25 | NUR ---
ICU/SECURITY OFFICER AT BEDSIDE.MAKE DISCISSION CHANGE CODE STATUS TO DNR/DNI ,BUT OK TO GIVE PRESSORS AND ACLS MEDS.CHARGE NURSE NOTIFIED.,MD NOTIFIED.NEW ORDERS RECEIVED.
[2017-03-26] MEDS: Z GUARD REMEDY 2 OZ OINT TP PRN (15:12)
[2017-03-26] MEDS: ALBUMIN 25% 25 GM in PREMIX 1 EA IV SCH ×2 (15:12→17:19)
[2017-03-26] MEDS: IV NS 0.9% 1,000 ML IV PRN ×3 (15:49→20:55)
--- NOTE | 2017-03-26 16:57 | NUR ---
PT RECEIVED INTUBATED ON VENT. NO RESP DISTRESS NOTED. PT TOLERATING JOE SETTINGS. SX'D AND LAVAGED FOR SML AMT OF THICK JAQUEZ SECRETIONS. VENT ALARMS SET AND AUDIBLE. ETT SECURED, CUFF MEDICAL TECHNOLOGIST PRN. VENT PLUGGED INTO RED OUTLET. WILL CONTINUE TO MONITOR. Addendum: 03/26/17 at 1658 by DOC BEATTY RT Amended: Links added.
[2017-03-26] MEDS: MICAFUNGIN SODIUM 100 MG in IV NS 0.9% 100 ML IV SCH (17:19)
[2017-03-26] MEDS: PANTOPRAZOLE 40 MG VIAL IV SCH (17:20)
--- NOTE | 2017-03-26 18:27 | NUR ---
ICU/RN DUE MEDS ARE GIVEN ORDERED.PM CARE PROVIDED.F/C 150ML FOR 12 HRS.IV INFUSING ORDERED.PT IS ON LEVOPHED ORDERED.ALBUMIN IV IS GIVEN .G-TUBE FEEDING HAS NO RESIDUAL.GENERALIZED WEEPING EDEMA PRESENT.SUCTION PROVIDED.REPOSITION FOR COMFORT.
--- NOTE | 2017-03-26 19:30 | NUR ---
WATCH ELECTRICIAN: RECEIVED ORALLY INTUBATED PT WT VENT SETTINGS ORDERED. NO ACUTE DISTRESS, NO EVIDENCE OF DISCOMFORT. DROWSY, OPENS EYES WHEN ORALLY SUCTIONED. FOLLOWS COMMANDS AT TIMES. SR WT 1ST DEGREE HB ON MAKEUP SALES ADVISOR. AFEBRILE. OGT ON FS AT 50ML/HR, NOTED WT HIGH RESIDUAL AT 300ML. WILL HOLD FEEDING AT THIS TIME. HOB AT 45 DEGREES. ON LEVOPHED AT 6MCG/MIN FOR BP SUPPORT AND NS AT 200ML/HR. NO S/S OF COMPLICATIONS ON WINTER PICC LINE. F/C PATENT AND INTACT DRAINING RICARDO COLORED URINE. SAFETY AND ASPIRATION PRECAUTIONS NOTED. WILL CONTINUE TO MONITOR.
--- NOTE | 2017-03-26 22:00 | NUR ---
LEAD INFRASTRUCTURE ARCHITECT: CALLED AND NOTIFIED DR. LAM OF HIGH GT RESIDUAL FROM 300CC AND STILL AT 200CC AFTER 2 HRS. WT ORDER TO GIVE REGLAN 10MG IV Q8HRS. NOTED AND CARRIED OUT.
[2017-03-26] MEDS: MEROPENEM 500 MG in IV NS 0.9% 50 ML IV SCH (22:06)
[2017-03-26] MEDS: METOCLOPRAMIDE HCL 10 MG/2 ML VIAL IV SCH (22:18)
--- NOTE | 2017-03-26 23:30 | NUR ---
LEAD TANK MECHANIC: FI02 INCREASED TO 60% D/T DESATURATION. WILL CONTINUE TO MONITOR.
[2017-03-27] VITALS (111 sets, daily range): BP systolic 86–122; BP diastolic 26–61
--- NOTE | 2017-03-27 | NUR ---
AGRICULTURAL LOAN OFFICER: GT RESIDUAL STILL HIGH AT 150CC, JAQUEZ COLORED. WILL CONTINUE TO HOLD AT THIS TIME.
[2017-03-27] MEDS: LORAZEPAM INJ 2 MG/ML VIAL IV PRN ×2 (00:18→08:23)
[2017-03-27] MEDS: ALBUMIN 25% 25 GM in PREMIX 1 EA IV SCH ×2 (00:20→06:02)
--- NOTE | 2017-03-27 00:45 | NUR ---
SANITATION LEAD: REASSESSED AFTER GIVEN ATIVAN WT GOOD EFFECT. LESS ANXIETY/RESTLESSNESS NOTED. BILAT. SOFT WRIST RESTRAINTS IN PLACE FOR EPISODES OF REACHING TUBES AND PREVENT SELF EXTUBATION. NOTED WT GOOD CIRCULATION AND WT NO NEW SKIN BREAKDOWN.
[2017-03-27] MEDS: IV NS 0.9% 1,000 ML IV PRN ×2 (01:07→11:01)
--- NOTE | 2017-03-27 02:00 | NUR ---
PLASTIC SURGERY SPECIALIST: GT RESIDUAL NOW AT 30CC. RESTARTED GT FEEDING. WILL CONTINUE TO MONITOR.
--- NOTE | 2017-03-27 03:00 | NUR ---
ASSISTANT INFANT TODDLER TEACHER: BED BATH GIVEN AND TOLERATED POORLY. PT IS MORE DROWSY, LETHARGIC, HIGH RR IN THE 40s. WILL ADMINISTER DILAUDID.
[2017-03-27] MEDS: HYDROMORPHONE 1 MG/1 ML DISP.SYRIN IV PRN (03:04)
[2017-03-27 04:59] LABS: CALCIUM, SERUM 8.1 mg/dL (8.5-10.1); CARBON DIOXIDE 20 mmol/L (21-32); CHLORIDE 105 mmol/L (98-107); CREATININE 1.3 mg/dL (0.6-1.3); GLUCOSE 106 mg/dL (74-106); POTASSIUM 5.4 mmol/L (3.5-5.1); SODIUM SERUM 134 mmol/L (136-145); UREA NITROGEN, BLOOD 74 mg/dL (7-18)
--- NOTE | 2017-03-27 05:00 | NUR ---
SUPPORT SERVICES SPECIALIST: DISCONTINUED RESTRAINTS AT THIS TIME. PT DID NOT HAVE ANY EPISODE OF TRYING TO REACH FOR TUBINGS SINCE 3AM. REMAINED DROWSY, LETHARGIC. WITHDRAWS TO LOCALIZED PAIN. NOW ON LEVOPHED 10MCG/MIN. OGT FEEDING TOLERATING WELL. WILL ADMINISTER REGLAN ORDERED.
[2017-03-27] MEDS: METOCLOPRAMIDE HCL 10 MG/2 ML VIAL IV SCH ×3 (05:24→21:01)
--- NOTE | 2017-03-27 07:15 | NUR ---
WOOD POLISHER NOTES RECEIVED PATIENT RESPONSIVE TO DEEP PAIN STIMULI , ETT 7.07/13 VIA AC MODE SPO2 OF 92-95% TOLERATING WELL , SR 66 WITH 1ST DEGREE AV BLOCK , ORAL GASTRIC TUBE IN PLACE WITH FIBERSOURCE @ 50ML/HR NOTED WITH 200ML RESIDUALS , PUSH BACK RESIDUALS , FEEDING HELD , FC DRAINING VIA GRAVITY , WINTER PICC LINE WITH LEVOPHED @ 10MCG/MIN , NS @ 100ML/HR INFUSING WELL , ALL NEEDS ATTENDED , BED ON LOW AND LOCKED POSITION , SIDE RAILS X2 ,HOB @ 35 , WILL CONTINUE TO MONITOR .
[2017-03-27] MEDS: PROSOURCE / PROSTAT (PYXIS) 30 ML UDC NG SCH ×2 (08:05→17:18)
[2017-03-27] MEDS: MEROPENEM 500 MG in IV NS 0.9% 50 ML IV SCH ×2 (08:05→21:01)
[2017-03-27] MEDS: ACIDOPHILUS/BULGARICUS 1 EACH TAB.CHEW NG SCH ×3 (08:05→17:18)
[2017-03-27] MEDS: AMIODARONE HCL 200 MG TABLET PO SCH ×2 (08:06→21:01)
--- NOTE | 2017-03-27 09:14 | NUR ---
HIDE TANNER NOTES FIO2 TITRATED UP FROM 60 TO 70% PT NOTED WITH EPISODES OF DESATURATION @ 89-90% SUSTAINING , WILL CONTINUE TO MONITOR
[2017-03-27 09:34] LABS: ABG BASE EXCESS -6.8 mmol/L; ABG OXYGEN SATURATION 91.3 % (92.0-98.5); ABG PCO2 42.8 mmHg (35.0-45.0); ABG PH 7.276 (7.350-7.450); ABG PO2 68.3 mmHg (75.0-100.0); AaDO2 384.8 mmHg; COHb 0.3 % (0.5-1.5); MetHb 1.7 % (0.0-1.5); O2Hb 89.5 % (94.0-97.0); SITE, ABG Right Radial; VENT MODE, BG AC16 450 70% +5
--- NOTE | 2017-03-27 10:55 | NUR ---
SUPPLIER DEVELOPMENT MANAGER NOTES SEEN AND EVALUATED BY DR PUCKETT , DISCUSSED LABS , ABG RESULT , ON LEVOPHED @ 10MCG/MIN , PATIENT IS HAVING LOW URINE OUTPUT 10ML SINCE 0700 , AFEBRILE , NOTED WITH 200ML GASTRIC RESIDUALS @ 0800 . AWARE . NO NEW ORDERS RECEIVED
[2017-03-27] MEDS: VANCOMYCIN 1 GM in IV D5W 250 ML IV SCH (10:59)
[2017-03-27] MEDS: NOREPINEPHRINE 16 MG in IV D5W 500 ML IV PRN ×2 (11:01→19:10)
--- NOTE | 2017-03-27 11:57 | NUR ---
SENIOR OCCUPATIONAL THERAPIST NOTES RELAYED ABG RESULT TO DR BARCLAY , VENT SETTINGS TO AC 16 , TV 500 FIO2 TITRATE SPO2 GREATER THAN OR EQUAL TO 94% PEEP OF 8 . ORDERS CARRIED OUT, RT GENNARO AT BESIDE NOTIFIED REGARDING NEW ORDERS . SPO2 OF 97% WITH NO S/S OF DISTRESS , WILL CONTINUE TO MONITOR
--- NOTE | 2017-03-27 12:01 | NUR ---
increased Vt 500 and PEEP [address] davis request Addendum: 03/27/17 at 1203 by GENNARO CONNORS RT Amended: Links added.
[2017-03-27 12:04] LABS: BASOPHILS # (AUTO) 0.1 /CMM (0.0-0.2); BASOPHILS % (AUTO) 0.4 % (0.0-2.0); LYMPHOCYTES # (AUTO) 0.8 /CMM (0.8-4.8); LYMPHOCYTES % (AUTO) 3.4 % (20.0-44.0); MEAN CORPUSCULAR HEMOGLOBIN 29 PG (26.0-33.0); MEAN CORPUSCULAR HGB CONC 32 g/dl (31.0-36.0); MEAN CORPUSCULAR VOLUME 90 fL (82-100); MONOCYTES # (AUTO) 0.2 /CMM (0.1-1.30); MONOCYTES % (AUTO) 0.7 % (2.0-12.0); NEUTROPHILS # (AUTO) 23.5 /CMM (1.8-8.9); NEUTROPHILS % (AUTO) 95.5 % (43.0-81.0); PLATELET COUNT (AUTO) 94 /CMM (150-450); RDW COEFFICIENT OF VARIATION 18.7 (11.5-15.0); RED BLOOD CELL COUNT(AUTO) 2.19 MIL/uL (4.0-5.2); WHITE BLOOD COUNT (AUTO) 24.6 K/uL (4.3-11.0)
[2017-03-27 12:17] LABS: HEMOGLOBIN 6.4 g/dL (11.5-14.8)
[2017-03-27 12:18] LABS: HEMATOCRIT 20 % (33-45)
--- NOTE | 2017-03-27 12:20 | NUR ---
I O PSYCHOLOGIST NOTES NOTIFIED DR AGUILAR REGARDING H/H OF 6. , DISCUSSED LATEST V/S , AFEBRILE , ON LEVOPHED @ 10MCG/MIN , NO ACTIVE BLEEDING NOTED , MD AWARE , AWAITING FOR ORDERS
[2017-03-27 12:37] LABS: BAND % (MANUAL) 2 % (0.0-5.0); LYMPHOCYTES % (MANUAL) 2 % (16-48); MONOCYTES % (MANUAL) 5 % (0-11.0); NEUTROPHILS % (MANUAL) 91 (42-76)
[2017-03-27 13:44] LABS: LYMPHOCYTES # (AUTO) 1.3 /CMM (0.8-4.8); LYMPHOCYTES % (AUTO) 4.5 % (20.0-44.0); MEAN CORPUSCULAR HEMOGLOBIN 28 PG (26.0-33.0); MEAN CORPUSCULAR HGB CONC 32 g/dl (31.0-36.0); MEAN CORPUSCULAR VOLUME 90 fL (82-100); MONOCYTES # (AUTO) 0.4 /CMM (0.1-1.30); MONOCYTES % (AUTO) 1.2 % (2.0-12.0); NEUTROPHILS # (AUTO) 27.2 /CMM (1.8-8.9); NEUTROPHILS % (AUTO) 94.3 % (43.0-81.0); PLATELET COUNT (AUTO) 104 /CMM (150-450); RDW COEFFICIENT OF VARIATION 18.5 (11.5-15.0); RED BLOOD CELL COUNT(AUTO) 2.26 MIL/uL (4.0-5.2); WHITE BLOOD COUNT (AUTO) 28.9 K/uL (4.3-11.0)
[2017-03-27 13:49] LABS: HEMATOCRIT 20 % (33-45); HEMOGLOBIN 6.4 g/dL (11.5-14.8)
[2017-03-27] MEDS: HYDROMORPHONE INJ 0.5 MG/0.5 ML SYRINGE IV PRN (15:08)
--- NOTE | 2017-03-27 15:40 | NUR ---
WALLPAPER EMBOSSER HELPER NOTES VERIFIED BLOOD WITH SALTY RN , PATIENT STABLE AT THIS TIME , AFEBRILE , WILL MONITOR POST 15 MINUTES OF BLOOD TRANSFUSION
[2017-03-27 15:53] LABS: BAND % (MANUAL) 1 % (0.0-5.0); LYMPHOCYTES % (MANUAL) 4 % (16-48); MONOCYTES % (MANUAL) 1 % (0-11.0); NEUTROPHILS % (MANUAL) 94 (42-76)
--- NOTE | 2017-03-27 15:55 | NUR ---
GLOVE BRUSHER NOTES PATIENT STABLE POST 15 MINUTES OF BLOOD TRANSFUSION , NO TRANSFUSION REACTION NOTED TOLERATING WELL , AFEBRILE V/S STABLE , WILL CONTINUE TO MONITOR
[2017-03-27] MEDS: PANTOPRAZOLE 40 MG VIAL IV SCH (17:18)
--- NOTE | 2017-03-27 18:10 | NUR ---
PT REC'D ORALLY INTUBATED ON CURRENT VENT SETTINGS CHARTED. NO SOB OR DISTRESS NOTED. CHANGES MADE FROM VT TO 500 AND PEEP TO [address] BARCLAY. VENT PLUGGED INTO RED OUTLET. ALARMS ARE SET AND AUDIBLE. AMBU BAG BEDSIDE. WILL CONTINUE TO MONITOR Addendum: 03/27/17 at 1811 by GENNARO CONNORS RT Amended: Links added.
[2017-03-27] MEDS: MICAFUNGIN SODIUM 100 MG in IV NS 0.9% 100 ML IV SCH (18:22)
[2017-03-27] MEDS ORDERED: FUROSEMIDE 20 MG/2 ML VIAL IV ONE (19:00)
--- NOTE | 2017-03-27 20:00 | NUR ---
CARBURETOR REPAIRER Received patient lethargic.All extremities flaccid.Not following commands.DNR/DNI status. ON vent support on AC mode.Afebrile.SR with 1st degree AVB.Levophed gtt infusing for BP support to keep SBP>90 will titrate accordingly.Patient not tolerating OGT feeding.Residual 260 ml. OGT clamped.FC in place no urine output at this time.Patient with multiple skin issues.Will turn and reposition q 2 hrs per protocol.Maintained on KCI mattress.Droplet precaution isolation observed. No acute distress noted.
[2017-03-28] VITALS (78 sets, daily range): BP systolic 42–134; BP diastolic 32–61
--- NOTE | 2017-03-28 | NUR ---
Gastric residual down to 20 ml.OGT feeding started.Will continue to monitor.
--- NOTE | 2017-03-28 00:09 | NUR ---
Received pt on vent support, pt stable on current settings, no SOB or respiratory distress noted, ventilator is plugged into red outlet, alarms audible and on. Ambu bag at bedside, will continue monitoring per MDS orders. Addendum: 03/28/17 at 0010 by RAD DONOVAN RT Amended: Links added.
[2017-03-28] MEDS: IV NS 0.9% 1,000 ML IV PRN ×2 (01:01→06:20)
[2017-03-28] MEDS: METOCLOPRAMIDE HCL 10 MG/2 ML VIAL IV SCH ×3 (05:01→21:11)
[2017-03-28 05:09] LABS: CALCIUM, SERUM 8.4 mg/dL (8.5-10.1); CARBON DIOXIDE 20 mmol/L (21-32); CHLORIDE 107 mmol/L (98-107); CREATININE 1.8 mg/dL (0.6-1.3); GLUCOSE 122 mg/dL (74-106); HEMATOCRIT 26 % (33-45); HEMOGLOBIN 8.5 g/dL (11.5-14.8); LYMPHOCYTES # (AUTO) 1.5 /CMM (0.8-4.8); LYMPHOCYTES % (AUTO) 4.6 % (20.0-44.0); MAGNESIUM 2.1 mg/dL (1.8-2.4); MEAN CORPUSCULAR HEMOGLOBIN 29 PG (26.0-33.0); MEAN CORPUSCULAR HGB CONC 34 g/dl (31.0-36.0); MEAN CORPUSCULAR VOLUME 87 fL (82-100); MONOCYTES # (AUTO) 0.4 /CMM (0.1-1.30); MONOCYTES % (AUTO) 1.1 % (2.0-12.0); NEUTROPHILS # (AUTO) 31.6 /CMM (1.8-8.9); NEUTROPHILS % (AUTO) 94.3 % (43.0-81.0); PHOSPHORUS 4.6 mg/dL (2.5-4.9); PLATELET COUNT (AUTO) 110 /CMM (150-450); POTASSIUM 5.8 mmol/L (3.5-5.1); RED BLOOD CELL COUNT(AUTO) 2.93 MIL/uL (4.0-5.2); SODIUM SERUM 136 mmol/L (136-145)
[2017-03-28 05:29] LABS: UREA NITROGEN, BLOOD 85 mg/dL (7-18)
[2017-03-28 05:30] LABS: WHITE BLOOD COUNT (AUTO) 33.5 K/uL (4.3-11.0)
[2017-03-28 05:49] LABS: BAND % (MANUAL) 2 % (0.0-5.0); LYMPHOCYTES % (MANUAL) 5 % (16-48); MONOCYTES % (MANUAL) 6 % (0-11.0); NEUTROPHILS % (MANUAL) 87 (42-76)
--- NOTE | 2017-03-28 06:30 | NUR ---
here and seen patient and aware of am lab results.Hyperkalemic k+= 5.8 NS 1L at 250 ml/hr X 1 dose started and infusing well.Patient status unchanged.AM care done.Levophed titrated down to 6 mcg/min.OGT feeding running at 50 ml/hr.Turned and repositioned.No acute distress noted.
--- NOTE | 2017-03-28 07:10 | NUR ---
Patient resting no distress noted.Report given to MATHEW CHARLES.BAKARI for continuity of care.
--- NOTE | 2017-03-28 08:00 | NUR ---
RN NOTE PER PM RN RUN 1000ML OF NS AT 250ML/HR. THEN RESUME NS AT 100ML/HR.
[2017-03-28] MEDS: AMIODARONE HCL 200 MG TABLET PO SCH ×2 (09:00→21:06)
--- NOTE | 2017-03-28 09:07 | NUR ---
RN INITIAL NOTE PATIENT RECEIVED IN BED RESTING. NO S/S OF PAIN OR DISCOMFORT. PATIENT IS UNRESPONSIVE, OBTUNDED. SINUS RYTHM ON TELE MONITOR WITH FIRST DEGREE BLOCK, AND BBB. PATIENT HAS TRACH, IS NON-VERBAL. TOLERATING VENT SETTINGS WELL. NG TUBE PATENT. PLACMENT VERIFIED. SKIN IS WARM AND DRY TO TOUCH. IV SITE FLUSHED, PATENT. SU CATHETER DRAINING TO GRAVITY. SAFETY PRECAUTIONS IMPLEMENTED: BED IN LOCKED, LOW POSITION WITH TWO SIDE RAILS UP. WILL CONTINUE TO MONITOR CLOSELY.
[2017-03-28] MEDS: PANTOPRAZOLE 40 MG VIAL IV SCH (09:26)
[2017-03-28] MEDS: ACIDOPHILUS/BULGARICUS 1 EACH TAB.CHEW NG SCH ×3 (09:26→17:13)
[2017-03-28] MEDS: MEROPENEM 500 MG in IV NS 0.9% 50 ML IV SCH ×2 (09:26→21:04)
[2017-03-28] MEDS: PROSOURCE / PROSTAT (PYXIS) 30 ML UDC NG SCH ×2 (09:29→17:13)
[2017-03-28 09:54] LABS: ABG BASE EXCESS -7.6 mmol/L; ABG OXYGEN SATURATION 97.3 % (92.0-98.5); ABG PCO2 37.3 mmHg (35.0-45.0); ABG PH 7.303 (7.350-7.450); ABG PO2 108.8 mmHg (75.0-100.0); AaDO2 350.2 mmHg; COHb 0.5 % (0.5-1.5); MetHb 0.5 % (0.0-1.5); O2Hb 96.3 % (94.0-97.0); PEEP,BG 8 cm H2O; SITE, ABG Left Radial; VENT MODE, BG A/C; VT, ABG 500 mL
[2017-03-28] MEDS ORDERED: SODIUM POLYSTYRENE SULFONATE 15 G/60 ML BOTTLE PO ONE (10:30)
[2017-03-28] MEDS: Sodium Bicarbonate 100 MEQ in IV 1/2NS 1000 ML 1,000 ML IV PRN (14:49)
[2017-03-28] MEDS: MICAFUNGIN SODIUM 100 MG in IV NS 0.9% 100 ML IV SCH (17:13)
--- NOTE | 2017-03-28 20:00 | NUR ---
ETHYLENE PLANT HELPER Received patient lethargic.Non verbal no acute distress noted.DNR/DNI status.VSS.SR with 1st degree AVB.Levophed infusing for BP support.Maintained on vent support on same prescribed settings.Well tolerated.OGT feeding in progress.Anuric.IVF infusing to WINTER PICC line and site intact. Turned and repositioned.Safety measures maintained with call light within easy reach.
--- NOTE | 2017-03-28 20:33 | NUR ---
PT RECEIVED INTUBATED 7.5 ETT SECURED AT 20CM AT THE LIP. NO RESP DISTRESS NOTED. PT TOLERATING VENT SETTINGS. SX'D FOR SML AMT OF THICK JAQUEZ SECRETIONS. VENT ALARMS SET AND AUDIBLE. AMBU BAG AT BEDSIDE. VENT PLUGGED INTO RED OUTLET. WILL CONTINUE TO MONITOR. Addendum: 03/28/17 at 203 by RAVINDER CARDOZA RT Amended: Links added.
--- NOTE | 2017-03-28 20:40 | NUR ---
RN BUILDING Patient daughter,Donavan visiting updated of patient status.Donavan took patient yellow metal bracelet home.
[2017-03-28] MEDS ORDERED: METOCLOPRAMIDE HCL 10 MG/2 ML VIAL ONE (21:07)
[2017-03-28] MEDS: IV NS 0.9% 250 ML IV PRN (21:14)
[2017-03-28] MEDS: FIBERSOURCE HN 1,000 ML BOTTLE GT PRN (21:15)
[2017-03-28] MEDS ORDERED: IV NS 0.9% 250 ML BAG IV ONE (21:30)
[2017-03-29] VITALS (63 sets, daily range): BP systolic 89–126; BP diastolic 38–76
[2017-03-29] MEDS: Sodium Bicarbonate 100 MEQ in IV 1/2NS 1000 ML 1,000 ML IV PRN ×2 (03:01→14:24)
[2017-03-29 04:59] LABS: BASOPHILS % (AUTO) 0.1 % (0.0-2.0); EOSINOPHILS % (AUTO) 0.1 % (0.0-6.0); HEMATOCRIT 26 % (33-45); HEMOGLOBIN 8.5 g/dL (11.5-14.8); LYMPHOCYTES # (AUTO) 1.2 /CMM (0.8-4.8); LYMPHOCYTES % (AUTO) 4.6 % (20.0-44.0); MEAN CORPUSCULAR HEMOGLOBIN 29 PG (26.0-33.0); MEAN CORPUSCULAR HGB CONC 33 g/dl (31.0-36.0); MEAN CORPUSCULAR VOLUME 87 fL (82-100); MONOCYTES # (AUTO) 0.3 /CMM (0.1-1.30); MONOCYTES % (AUTO) 1.1 % (2.0-12.0); NEUTROPHILS # (AUTO) 24.6 /CMM (1.8-8.9); NEUTROPHILS % (AUTO) 94.1 % (43.0-81.0); PLATELET COUNT (AUTO) 84 /CMM (150-450); RDW COEFFICIENT OF VARIATION 20.2 (11.5-15.0); RED BLOOD CELL COUNT(AUTO) 2.95 MIL/uL (4.0-5.2); WHITE BLOOD COUNT (AUTO) 26.2 K/uL (4.3-11.0)
[2017-03-29] MEDS: METOCLOPRAMIDE HCL 10 MG/2 ML VIAL IV SCH ×3 (05:02→21:05)
[2017-03-29 05:22] LABS: BAND % (MANUAL) 2 % (0.0-5.0); LYMPHOCYTES % (MANUAL) 7 % (16-48); MONOCYTES % (MANUAL) 2 % (0-11.0); NEUTROPHILS % (MANUAL) 89 (42-76)
[2017-03-29 05:25] LABS: CALCIUM, SERUM 7.5 mg/dL (8.5-10.1); CARBON DIOXIDE 21 mmol/L (21-32); CHLORIDE 106 mmol/L (98-107); CREATININE 1.9 mg/dL (0.6-1.3); GLUCOSE 138 mg/dL (74-106); MAGNESIUM 1.9 mg/dL (1.8-2.4); PHOSPHORUS 4.1 mg/dL (2.5-4.9); POTASSIUM 4.7 mmol/L (3.5-5.1); SODIUM SERUM 137 mmol/L (136-145)
[2017-03-29 05:27] LABS: UREA NITROGEN, BLOOD 88 mg/dL (7-18)
--- NOTE | 2017-03-29 07:10 | NUR ---
SENIOR RESIDENT CARE DIRECTOR INITIAL NOTES: REC'D PT ON BED, NOT IN ANY DISTRESS, A/O X 2, RESPONDS BY NODDING. ON MV VIA TRACH, SATING AT 100%. ON TELEMONITOR, ST W/ HR 109 BPM. HAS PEG PATENT & INTACT, ON CONT TUBE FEEDING NOVASOURCE X 40 CC/HR INFUSING WELL. HAS WINTER PICC LINE TLC, SL, FLUSHING WELL, PATENT & INTACT W/ NO S/SX OF INFECTION/INFILTRATION NOTED. HAS R FEMORAL HD CATH INTACT. PROVIDED COMFORT & SAFETY MEASURES. BED KEPT LOW & IN LOCKED POS. CALL LIGHT PLACED W/IN REACH. WILL CONTINUE TO MONITOR & ATTEND PT NEEDS. Addendum: 03/29/17 at 1136 by MATHEW SOLITARIO RN ERROR ON DOCUMENTATION. PLEASE DISREGARD.
--- NOTE | 2017-03-29 07:10 | NUR ---
ASSEMBLER DC FIELD RING INITIAL NOTES: REC'D PT ON BED, NOT IN ANY DISTRESS, OBTUNDED. ON MV VIA ETT SIZE 7.5 LEVEL 21, SATING AT 94%. ON TELEMONITOR, SR W/ 1' AVB, BBB HR 79 BPM. HAS OGT PATENT & INTACT, ON CONT TUBE FEEDING FIBERSOURCE X 50 CC/HR INFUSING WELL. HAS WINTER PICC LINE TLC, PATENT & INTACT W/ NO S/SX OF INFECTION/INFILTRATION NOTED, ON 02/24 NS + 100 MEQS NA BICARB X 100 CC/HR AND LEVOPHED DRIP X 5 MCG/HR BOTH INFUSING WELL. HAS FC PATENT & INTACT, NO URINE OUTPUT NOTED. PROVIDED COMFORT & SAFETY MEASURES. BED KEPT LOW & IN LOCKED POS. CALL LIGHT PLACED W/IN REACH. WILL CONTINUE TO MONITOR & ATTEND PT NEEDS.
--- NOTE | 2017-03-29 07:17 | NUR ---
No significant change noted during the shift.VSS.Levophed drip titrated down to 5 mcg for BP support. Tolerating feeding.Maintained on vent support on same settings.Well tolerated.Turned and repositioned. All needs attended.Report given to AM shift RN for REJI.
[2017-03-29] MEDS: AMIODARONE HCL 200 MG TABLET PO SCH ×2 (08:17→21:06)
[2017-03-29] MEDS: PROSOURCE / PROSTAT (PYXIS) 30 ML UDC NG SCH ×2 (08:17→16:37)
[2017-03-29] MEDS: ACIDOPHILUS/BULGARICUS 1 EACH TAB.CHEW NG SCH ×3 (08:17→16:37)
[2017-03-29] MEDS: MEROPENEM 500 MG in IV NS 0.9% 50 ML IV SCH ×2 (08:17→21:05)
[2017-03-29] MEDS: Z GUARD REMEDY 2 OZ OINT TP PRN (08:18)
[2017-03-29] MEDS: NOREPINEPHRINE 16 MG in IV D5W 500 ML IV PRN (09:12)
[2017-03-29] MEDS: VANCOMYCIN 1 GM in IV D5W 250 ML IV SCH (11:00)
--- NOTE | 2017-03-29 11:30 | NUR ---
RN NOTES: PT SEEN & EXAMINED BY DR. AGUILAR.
[2017-03-29] MEDS: FIBERSOURCE HN 1,000 ML BOTTLE GT PRN (16:38)
--- NOTE | 2017-03-29 17:42 | NUR ---
RT NOTE PT REMAINS MECHANICALLY VENTILATED VIA 7.5 ETT 20 CM AT LIP. SETTINGS PRESCRIBED AC 16 500 70% +8. ALARMS SET PER PROTOCOL AND AUDIBLE. VENT PLUGGED IN TO RED OUTLET. AMBU BAG AT BED SIDE. NO DISTRESS NOTED.
[2017-03-29] MEDS: PANTOPRAZOLE 40 MG VIAL IV SCH (17:45)
[2017-03-29] MEDS: MICAFUNGIN SODIUM 100 MG in IV NS 0.9% 100 ML IV SCH (17:46)
--- NOTE | 2017-03-29 18:51 | NUR ---
MANAGER BUSINESS INTELLIGENCE CLOSING NOTES: NO ACUTE CHANGES NOTED W/IN SHIFT. PT TOLERATED MV SETTINGS VIA ETT, SATING AT 95%. SECRETIONS SUCTIONED. ON TELEMONITOR, STILL SR W/ 1' AVB, BBB. OGT KEPT PATENT & INTACT, STILL ON CONT TUBE FEEDING FIBERSOURCE X 50 CC/HR TOLERATED WELL, NO HIGH RESIDUAL NOTED W/IN SHIFT. WINTER PICC LINE TLC, KEPT PATENT & INTACT W/ NO S/SX OF INFECTION/INFILTRATION NOTED, ON 02/24 NS + 100 MEQS NA BICARB X 100 CC/HR AND LEVOPHED DRIP X 5 MCG/HR BOTH INFUSING WELL. FC KEPT PATENT & INTACT. MD AWARE OF MINIMAL URINE OUTPUT. KEPT WELL RESTED. BED KEPT LOW & IN LOCKED POS. CALL LIGHT PLACED W/IN REACH. WOUND CARE DONE. PT TURNED & REPOSITIONED. WILL ENDORSE TO PM RN FOR REJI. Addendum: 03/29/17 at 1900 by MATHEW SOLITARIO RN ADDENDUM: AWAITING FOR FAMILY RE: FINAL PLAN OF CARE.
--- NOTE | 2017-03-29 20:56 | NUR ---
received pt from day shift, obtunded, SR, 1 degree AV block, A fib, on levo at 5mcg, on the vent, lungs congested, pitting edema throughout, OG to feeding tolerates well, f/c no urine MD aware, v/s stable, no pain, pt turned and repositioned.
--- NOTE | 2017-03-29 22:59 | NUR ---
Dr Covington notified regarding patient's HR 151 and starting second pressor (melania). No orders. Addendum: 03/29/17 at 2302 by HAIR RINCON RN Wrong note, Wrong patient.
[2017-03-30] VITALS (64 sets, daily range): BP systolic 79–131; BP diastolic 36–61
--- NOTE | 2017-03-30 00:25 | NUR ---
pt is resting in the bed, on levo at 6mcg, v/s stable, no pain, pt turned and repositioned q2hrs.
[2017-03-30] MEDS: Sodium Bicarbonate 100 MEQ in IV 1/2NS 1000 ML 1,000 ML IV PRN ×2 (01:25→13:29)
[2017-03-30] MEDS: METOCLOPRAMIDE HCL 10 MG/2 ML VIAL IV SCH ×3 (04:14→21:00)
--- NOTE | 2017-03-30 04:39 | NUR ---
pt is resting in the bed, no acute distress overnight, SR, on levo at 7mcg, v/s stable, no pain, tolerates feeding, pt cleaned, changed and repositioned q2hrs.
[2017-03-30 05:54] LABS: CALCIUM, SERUM 7.8 mg/dL (8.5-10.1); CARBON DIOXIDE 26 mmol/L (21-32); CHLORIDE 103 mmol/L (98-107); CREATININE 2.2 mg/dL (0.6-1.3); GLUCOSE 123 mg/dL (74-106); POTASSIUM 4.8 mmol/L (3.5-5.1); SODIUM SERUM 136 mmol/L (136-145)
[2017-03-30 05:55] LABS: UREA NITROGEN, BLOOD 99 mg/dL (7-18)
[2017-03-30] MEDS: HYDROMORPHONE INJ 0.5 MG/0.5 ML SYRINGE IV PRN ×2 (07:38→13:40)
--- NOTE | 2017-03-30 07:48 | NUR ---
WOUND CARE CONSULT WOUND CARE RECEIVED CONSULT FOR SACRAL WOUND. WOUND CARE WILL DEFER TO SURGICAL TEAM WHO ARE CURRENTLY FOLLOWING.
--- NOTE | 2017-03-30 08:00 | NUR ---
ICU/RN PT IS INTUBATED ON THE VENT AC NODE.FIO2-70%.AFEBRILE.ON LEVOPHED AND BICARB DRIP.G-TUBE INFUSING WITH FIBERSOURCE AT 50 ML/HR 20 ML RESIDUAL NOTED.F/C IN PLACE.ANURIC.REACTIVE ON PAIN STIMULATION .SUCTION PROVIDED.REPOSITION FOR COMFORT.
--- NOTE | 2017-03-30 08:21 | NUR ---
PT. RECEIVED ON VENT SUPPORT VIA ET TUBE WITH PARAMETERS BELLOW ORDER: AC 16 VT 500 FIO2 70% PEEP +8 B/S BILATERAL COURSE RHONCHI, SXN LARGE AMNT PALE YELLOW SEMI THICK SECRETIONS. VENT IS PLUGGED INTO RED OUTLET WITH ALARMS ON AND FUNCTIONING. HOLAG @ HOB. Addendum: 03/30/17 at 1041 by SOLIS MOSER RT Amended: Links added.
[2017-03-30] MEDS: PROSOURCE / PROSTAT (PYXIS) 30 ML UDC NG SCH ×2 (08:45→15:57)
[2017-03-30] MEDS: AMIODARONE HCL 200 MG TABLET PO SCH ×2 (08:45→21:14)
[2017-03-30] MEDS: ACIDOPHILUS/BULGARICUS 1 EACH TAB.CHEW NG SCH ×3 (08:45→15:57)
[2017-03-30] MEDS: NOREPINEPHRINE 16 MG in IV D5W 500 ML IV PRN (08:46)
[2017-03-30] MEDS: MEROPENEM 500 MG in IV NS 0.9% 50 ML IV SCH ×2 (08:48→21:13)
--- NOTE | 2017-03-30 09:00 | NUR ---
ICU/RN DUE MEDS ARE GIVEN ORDERED.PT HAS GENERALIZED WEEPING EDEMA.REDNESS ON ZACHARY AREA AND LOVER BACK.LEFT HIP DRESSING ,S/P ORIF.
[2017-03-30] MEDS: FIBERSOURCE HN 1,000 ML BOTTLE GT PRN (15:56)
--- NOTE | 2017-03-30 17:00 | NUR ---
ICU/RN DUE MEDS ARE GIVEN ORDERED.PM CARE PROVIDED.PT IS ON LEVOPHED AND BICARB DRIP.CONTINUE MONITORING.
[2017-03-30] MEDS: MICAFUNGIN SODIUM 100 MG in IV NS 0.9% 100 ML IV SCH (17:10)
[2017-03-30] MEDS: PANTOPRAZOLE 40 MG VIAL IV SCH (17:11)
--- NOTE | 2017-03-30 18:35 | NUR ---
ICU/RN PT FAMILY AT BEDSIDE.WANTS TO TALK TO MD.DR PRATHER AT BESIDE TALK TO THE FAMILY.NEW ORDERS RECEIVED.CONSENT FOR TRACHEOSTOMY PLACEMENT SIGN.
[2017-03-30] MEDS: IV NS 0.9% 250 ML IV PRN (23:48)
[2017-03-30] MEDS: SODIUM BICARBONATE IV PRN (23:48)
[2017-03-30] MEDS: [UNRECOGNIZED DRUG - OTHER] IV PRN (23:48)
[2017-03-31] VITALS (61 sets, daily range): BP systolic 80–128; BP diastolic 37–62
[2017-03-31] MEDS: HYDROMORPHONE INJ 0.5 MG/0.5 ML SYRINGE IV PRN (00:56)
[2017-03-31] MEDS: NOREPINEPHRINE 16 MG in IV D5W 500 ML IV PRN ×2 (01:44→15:05)
[2017-03-31] MEDS: METOCLOPRAMIDE HCL 10 MG/2 ML VIAL IV SCH ×3 (05:00→21:00)
[2017-03-31 05:10] LABS: BASOPHILS % (AUTO) 0.1 % (0.0-2.0); EOSINOPHILS % (AUTO) 0.1 % (0.0-6.0); HEMATOCRIT 26 % (33-45); HEMOGLOBIN 8.7 g/dL (11.5-14.8); LYMPHOCYTES # (AUTO) 1.2 /CMM (0.8-4.8); LYMPHOCYTES % (AUTO) 5.2 % (20.0-44.0); MEAN CORPUSCULAR HEMOGLOBIN 29 PG (26.0-33.0); MEAN CORPUSCULAR HGB CONC 33 g/dl (31.0-36.0); MEAN CORPUSCULAR VOLUME 88 fL (82-100); MONOCYTES # (AUTO) 0.1 /CMM (0.1-1.30); MONOCYTES % (AUTO) 0.4 % (2.0-12.0); NEUTROPHILS # (AUTO) 22.1 /CMM (1.8-8.9); NEUTROPHILS % (AUTO) 94.2 % (43.0-81.0); RED BLOOD CELL COUNT(AUTO) 3.01 MIL/uL (4.0-5.2); WHITE BLOOD COUNT (AUTO) 23.5 K/uL (4.3-11.0)
[2017-03-31 05:19] LABS: PLATELET COUNT (AUTO) 37 /CMM (150-450)
[2017-03-31 05:34] LABS: CALCIUM, SERUM 7.7 mg/dL (8.5-10.1); CARBON DIOXIDE 23 mmol/L (21-32); CHLORIDE 103 mmol/L (98-107); CREATININE 2.4 mg/dL (0.6-1.3); GLUCOSE 113 mg/dL (74-106); PHOSPHORUS 5.8 mg/dL (2.5-4.9); SODIUM SERUM 135 mmol/L (136-145)
[2017-03-31 05:36] LABS: UREA NITROGEN, BLOOD 101 mg/dL (7-18)
[2017-03-31 05:40] LABS: LYMPHOCYTES % (MANUAL) 6 % (16-48); MONOCYTES % (MANUAL) 1 % (0-11.0); NEUTROPHILS % (MANUAL) 93 (42-76)
--- NOTE | 2017-03-31 08:00 | NUR ---
ICU/RN INITIAL NOTES,AM RECEIVED REPORT FROM NIGHT NURSE. PT INTUBATED ETT7.5, 21CM AT THE LIP. PT ON VENT SETTINGS ORDERED BY MD, NO ACUTE DISTRESS NOTED AT THIS TIME. PT DOES NOT FOLLOW COMMANDS, RESPONDS TO SOME PAINFUL STIMULI. SINUS ON TELE WITH FIRST DEGREE AV BLOCK. OGT IN PLACE, PLACEMENT CHECKED. SU CATH IN PLACE, DRAINING MINIMAL URINE. PICC LINE PATENT AND INTACT, LEVO INFUSING FOR BP SUPPORT, IV FLUIDS ORDERED. ALL NEEDS WILL BE MET, SAFETY MEASURES TAKEN, BED IN LOW POSITION, SIDE RAILS UP, CALL LIGHT WITHIN REACH.
[2017-03-31 08:13] LABS: ABG BASE EXCESS -4.6 mmol/L; ABG OXYGEN SATURATION 94.1 % (92.0-98.5); ABG PCO2 55.5 mmHg (35.0-45.0); ABG PH 7.236 (7.350-7.450); ABG PO2 81.6 mmHg (75.0-100.0); COHb 0.3 % (0.5-1.5); MetHb 0.4 % (0.0-1.5); O2Hb 93.4 % (94.0-97.0); PEEP,BG 8 cm H2O; SITE, ABG Right Radial; VT, ABG 500 mL
[2017-03-31] MEDS: PROSOURCE / PROSTAT (PYXIS) 30 ML UDC NG SCH ×2 (09:39→17:28)
[2017-03-31] MEDS: ACIDOPHILUS/BULGARICUS 1 EACH TAB.CHEW NG SCH ×3 (09:39→17:28)
[2017-03-31] MEDS: MEROPENEM 500 MG in IV NS 0.9% 50 ML IV SCH ×2 (09:39→21:47)
[2017-03-31] MEDS: AMIODARONE HCL 200 MG TABLET PO SCH ×2 (09:40→21:27)
--- NOTE | 2017-03-31 13:00 | NUR ---
ICU/RN: MD ROUNDS, NO NEW ORDERS AT THIS TIME. WAITING FOR TRACHEOSTOMY PLACEMENT, NO TIME SCHEDULED YET. WILL CONTINUE TO MONITOR AND ASSESS
[2017-03-31] MEDS: [UNRECOGNIZED DRUG - OTHER] IV PRN (15:05)
[2017-03-31] MEDS: SODIUM BICARBONATE IV PRN (15:05)
[2017-03-31] MEDS: FIBERSOURCE HN 1,000 ML BOTTLE GT PRN (15:31)
--- NOTE | 2017-03-31 17:00 | NUR ---
ICU/RN: BED BATH GIVEN, LINENS CHANGED, WOUND CARE RENDERED. PT TURNED AND REPOSITIONED.
[2017-03-31] MEDS: PANTOPRAZOLE 40 MG VIAL IV SCH (17:28)
[2017-03-31] MEDS: MICAFUNGIN SODIUM 100 MG in IV NS 0.9% 100 ML IV SCH (17:31)
--- NOTE | 2017-03-31 18:05 | NUR ---
RT END OF THE SHIFT REPORT PT. 81 Y OLD FEMALE REMAIN ORALLY INTUBATED ETT # 7.5 @ 20 CM LIPLINE AND ON VENT WITH NOTED SETTINGS, ALARMS ARE SET AND FUNCTIONAL. NO DISTRESS NOTED T/O SHIFT. B/S BILATERALLY RHONCHI. EQUAL CHEST RISE NOTED. SUX'D FOR MINIMUM AMT. YELLOWISH SECRETIONS, VENT CHANGES PER DR. BARCLAY INCREASED VT TO 550 ML AND FIO2 COULD NOT TITRATED DUE TO LOW SATURATION T/O SHIFT AND PEEP REMAIN +8 . CONTINUE FOR MONITOR AND CARE FOR PT. AMBU BAG REMAIN AT THE BEDSIDE. VENT PLUGGED INTO RED OUTLET. HME CHANGED, REPORT WILL PASS TO PM SHIFT. Addendum: 03/31/17 at 1807 by SALTY HACKETT RT Amended: Links added.
--- NOTE | 2017-03-31 18:32 | NUR ---
ICU/RN: ENDING NOTES,AM REPORT WILL BE ENDORSED TO NIGHT NURSE FOR CONTINUATION OF CARE. ALL NEEDS ATTENDED TO, SAFETY MEASURES TAKEN. PT ON VENT SETTINGS ORDERED BY MD. LEVO FOR BP SUPPORT, IV FLUIDS INFUSING ORDERED. BED BATH GIVEN, TURNED AND REPOSITIONED. SAFETY MEASURES TAKEN, BED IN LOW POSITION, SIDE RIALS UP, CALL LIGHT WITHIN REACH.
--- NOTE | 2017-03-31 20:34 | NUR ---
AIRPLANE CABIN ATTENDANT. INITIAL ASSESSMENT. RECEIVED THE PT REST ON THE BED, ORALLY INTUBATED. PT IS OBTUNDED. AGONAL BREATHING. ETT 7.5CM,LIP 21CM, AC 16,TV 550,FIO2 75%, PEEP 8. SAT 99%. TOWERMAN SHOWING 1ST DEGREE HB, OGT INTACT, FIBER SOURCE 25ML/H,HOB ELEVATED, FC PATENT. RT UPPER ARM PICC LINE IVF 1/2 NS IN 1 AMP BICARB 75ML/H. ,LEVOPHED 16MCG/MIN,WILL CONTINUE TO MONITOR VITALS.
--- NOTE | 2017-03-31 21:21 | NUR ---
PT RECEIVED ON VENT VIA CHARTED SETTINGS AND ROUTE. VENT PLUGGED INTO RED OUTLET. VENT ALARMS SET AND AUDIBLE. DISCONNECT ALARMS CHECKED. AMBU BAG AT BEDSIDE. TOLERATING VENT SETTINGS. Addendum: 03/31/17 at 2122 by NIRAJ BASILIO RT Amended: Links added.
--- NOTE | 2017-03-31 21:29 | NUR ---
MID LEVEL PROVIDERRN. HENRY NOT AVAILABLE .
[2017-03-31] MEDS ORDERED: MEROPENEM 500 MG VIAL IV ONE (21:37)
[2017-04-01] VITALS (81 sets, daily range): BP systolic 91–131; BP diastolic 37–52
--- NOTE | 2017-04-01 03:05 | NUR ---
INTERVENTIONAL RADIOLOGY TECH. AM CARE, ORAL CARE, BE BATH GIVEN. LINEN CHANGED, REMAINING SAME OXYGEN ON. SAT 98%, GT FEEDING ON. HOB ELEVATED. FC PTENT. AFEBRILE. PT IS UNSTABLE. IV RT UPPER ARM PICC LINE, IVF 1/2NSIN 1 AMP BICARB 75ML/H. TURN AND REPOSITION Q2H. WILL CONTINUE TO MONITOR VITALS.
[2017-04-01] MEDS: METOCLOPRAMIDE HCL 10 MG/2 ML VIAL IV SCH ×3 (04:29→20:23)
[2017-04-01] MEDS: NOREPINEPHRINE 16 MG in IV D5W 500 ML IV PRN ×2 (06:48→20:22)
--- NOTE | 2017-04-01 07:42 | NUR ---
ICU/RN INITIAL NOTES,AM RECEIVED REPORT FROM NIGHT NURSE. PT INTUBATED ETT 7.5, 21CM AT THE LIP. PT ON VENT SETTINGS ORDERED BY MD, NO ACUTE DISTRESS NOTED AT THIS TIME. PT DOES NOT FOLLOW COMMANDS, RESPONDS TO SOME PAINFUL STIMULI. SINUS ON TELE WITH FIRST DEGREE AV BLOCK. OGT IN PLACE, PLACEMENT CHECKED, TUBE FEEDING INFUSING ORDERED, WILL MONITOR RESIDUAL. SU CATH IN PLACE, PT ANURIC. PICC LINE PATENT AND INTACT, LEVO INFUSING FOR BP SUPPORT, IV FLUIDS ORDERED. ALL NEEDS WILL BE MET, SAFETY MEASURES TAKEN, BED IN LOW POSITION, SIDE RAILS UP, CALL LIGHT WITHIN REACH.
[2017-04-01] MEDS ORDERED: VANCOMYCIN 0.75 GM in IV D5W 250 ML IV SCH (09:00)
[2017-04-01 09:30] LABS: ABG BASE EXCESS -8.3 mmol/L; ABG OXYGEN SATURATION 94.1 % (92.0-98.5); ABG PCO2 47.1 mmHg (35.0-45.0); ABG PH 7.223 (7.350-7.450); ABG PO2 85.1 mmHg (75.0-100.0); AaDO2 327.1 mmHg; COHb 0.3 % (0.5-1.5); MetHb 0.5 % (0.0-1.5); O2Hb 93.3 % (94.0-97.0); SITE, ABG Left Brachial
[2017-04-01] MEDS: PROSOURCE / PROSTAT (PYXIS) 30 ML UDC NG SCH ×2 (09:32→17:14)
[2017-04-01] MEDS: ACIDOPHILUS/BULGARICUS 1 EACH TAB.CHEW NG SCH ×3 (09:51→17:14)
[2017-04-01] MEDS: AMIODARONE HCL 200 MG TABLET PO SCH ×2 (09:51→20:23)
[2017-04-01] MEDS: [UNRECOGNIZED DRUG - OTHER] IV PRN (09:54)
[2017-04-01] MEDS: SODIUM BICARBONATE IV PRN (09:54)
[2017-04-01 09:58] LABS: CALCIUM, SERUM 7.7 mg/dL (8.5-10.1); CARBON DIOXIDE 22 mmol/L (21-32); CHLORIDE 99 mmol/L (98-107); CREATININE 2.7 mg/dL (0.6-1.3); GLUCOSE 130 mg/dL (74-106); POTASSIUM 5.4 mmol/L (3.5-5.1); SODIUM SERUM 133 mmol/L (136-145)
[2017-04-01 09:59] LABS: UREA NITROGEN, BLOOD 111 mg/dL (7-18)
--- NOTE | 2017-04-01 10:25 | NUR ---
VENT CHANGES MADE PER DR BARCLAY ORDER. VT: 600, REP RATE: 24. WILL CONTINUE TO MONITOR PT
--- NOTE | 2017-04-01 10:30 | NUR ---
ICU/RN: ABG DONE, NOTIFIED. VENT CHANGES DONE. TRACH PLACEMENT ON HOLD TO DUE PT UNSTABLE CONDITION AND CRITICAL LABS, WILL CONTINUE TO MONITOR AND ASSESS.
[2017-04-01] MEDS: MEROPENEM 500 MG in IV NS 0.9% 50 ML IV SCH ×2 (11:24→20:22)
--- NOTE | 2017-04-01 11:55 | NUR ---
SPUTUM COLLECTED AND SENT TO LAB. RN AWARE.
[2017-04-01] MEDS ORDERED: VANCOMYCIN 500 MG in IV D5W 100 ML IV SCH (12:00)
--- NOTE | 2017-04-01 15:06 | NUR ---
PT RECEIVED INTUBATED WITH ETT ON MECHANICAL VENTILATOR ON SETTINGS NOTED. VENT CHANGES DONE PER MD ORDER. BREATH SOUNDS BILATERAL COARSE HEARD UPON AUSCULTATION. SUCTIONED MODERATE AMOUNT OF JAQUEZ WITH RED SPECKS THICK SECRETIONS. VENT PLUGGED INTO RED OUTLET. VENT ALARMS SET AND AUDIBLE. AMBU BAG AT BEDSIDE. WILL CONTINUE TO MONITOR PT.
[2017-04-01] MEDS: FIBERSOURCE HN 1,000 ML BOTTLE GT PRN (15:50)
[2017-04-01] MEDS: PANTOPRAZOLE 40 MG VIAL IV SCH (17:14)
[2017-04-01] MEDS: MICAFUNGIN SODIUM 100 MG in IV NS 0.9% 100 ML IV SCH (17:14)
--- NOTE | 2017-04-01 19:27 | NUR ---
REPATCHER. INITIAL ASSESSMENT. RECEIVED THE PT REST ON THE BED, ORALLY INTUBATED. PT IS OBTUNDED, ETT 7.5CM,LIP 21CM,AC 24, TV 600,FIO2 65%, PEEP 8. SAT 98%. WELL DRILL OPERATOR ROTARY DRILL SHOWING 1ST DEGREE AV BLOCK. GT INTACT. FIBER SOURCE 50ML/H,IV RT UPPER ARM PICC LINE LEVOPHED 16MCG/MIN,IVF 1/2NS IN 1 AMP BICARB 75ML/H, FC PATENT. TERE HAND WEEPING. PT IS ANURIC. WILL CONTINUE TO MONITOR.
[2017-04-01] MEDS ORDERED: FLUCONAZOLE IN NS 100 MG in PREMIX 1 EA IV SCH ×2 (20:00)
[2017-04-01] MEDS: FLUCONAZOLE IN NS 100 MG in PREMIX 1 EA IV SCH ×2 (20:22)
--- NOTE | 2017-04-01 20:24 | NUR ---
MARKETING PRODUCTION COORDINATORRN. HENRY NOT AVAILABLE.
--- NOTE | 2017-04-01 20:57 | NUR ---
PT RECEIVED INTUBATED 7.5 ETT SECURED AT 20CM AT THE LIP. NO RESP DISTRESS NOTED. PT TOLERATING VENT SETTINGS. SX'D FOR SML AMT OF THICK JAQUEZ SECRETIONS. VENT ALARMS SET AND AUDIBLE. AMBU BAG AT BEDSIDE. VENT PLUGGED INTO RED OUTLET. WILL CONTINUE TO MONITOR. Addendum: 04/01/17 at 205 by RAVINDER CARDOZA RT Amended: Links added.
[2017-04-02] VITALS (59 sets, daily range): BP systolic 90–110; BP diastolic 37–51
[2017-04-02] MEDS: SODIUM BICARBONATE IV PRN ×2 (02:38→15:35)
[2017-04-02] MEDS: [UNRECOGNIZED DRUG - OTHER] IV PRN ×2 (02:38→15:35)
--- NOTE | 2017-04-02 03:07 | NUR ---
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 am care, oral care, bed bath given. linen changed remaining same vent settings. SAT 98%. CHILD CARE LEADER SHOWING NSR. IV RT UPPER ARM PICC LINE. IVF 1/2 NS IN 1 AMP BICARB 75ML/H. FC PATENT, ANURIC, AFEBRILE. HOB ELEVATED, OGT INTACT, FIBER SOURCE 50 ML/H. TERE HAND BEEPING. HOB ELEVATED. TURN AND REPOSITION Q2H, WILL CONTINUE TO MONITOR VITALS.
[2017-04-02] MEDS: METOCLOPRAMIDE HCL 10 MG/2 ML VIAL IV SCH ×3 (05:00→21:00)
[2017-04-02 05:27] LABS: CALCIUM, SERUM 7.7 mg/dL (8.5-10.1); CARBON DIOXIDE 24 mmol/L (21-32); CHLORIDE 100 mmol/L (98-107); CREATININE 2.8 mg/dL (0.6-1.3); GLUCOSE 143 mg/dL (74-106); POTASSIUM 5.1 mmol/L (3.5-5.1); SODIUM SERUM 133 mmol/L (136-145)
[2017-04-02 05:28] LABS: UREA NITROGEN, BLOOD 123 mg/dL (7-18)
--- NOTE | 2017-04-02 07:45 | NUR ---
ICU/RN: Dr Hale at bedside; updated on pt status. Pt with cool bilat lower and upper and lower ext digits, cap refill >3 sec and weak peripheral pulse on R lower ext. Per MD condition dt pressors. No new orders.
[2017-04-02 07:59] LABS: EOSINOPHILS % (AUTO) 0.1 % (0.0-6.0); HEMOGLOBIN 8.5 g/dL (11.5-14.8)
[2017-04-02 08:02] LABS: BASOPHILS # (AUTO) 0.3 /CMM (0.0-0.2); BASOPHILS % (AUTO) 1.2 % (0.0-2.0); HEMATOCRIT 25 % (33-45); LYMPHOCYTES # (AUTO) 0.9 /CMM (0.8-4.8); LYMPHOCYTES % (AUTO) 3.7 % (20.0-44.0); MEAN CORPUSCULAR HEMOGLOBIN 29 PG (26.0-33.0); MEAN CORPUSCULAR HGB CONC 34 g/dl (31.0-36.0); MEAN CORPUSCULAR VOLUME 86 fL (82-100); MONOCYTES # (AUTO) 0.4 /CMM (0.1-1.30); MONOCYTES % (AUTO) 1.4 % (2.0-12.0); NEUTROPHILS # (AUTO) 23.8 /CMM (1.8-8.9); NEUTROPHILS % (AUTO) 93.6 % (43.0-81.0); RDW COEFFICIENT OF VARIATION 18.7 (11.5-15.0); RED BLOOD CELL COUNT(AUTO) 2.91 MIL/uL (4.0-5.2); WHITE BLOOD COUNT (AUTO) 25.4 K/uL (4.3-11.0)
[2017-04-02] MEDS: ACIDOPHILUS/BULGARICUS 1 EACH TAB.CHEW NG SCH ×3 (08:42→16:14)
[2017-04-02] MEDS: PROSOURCE / PROSTAT (PYXIS) 30 ML UDC NG SCH ×2 (08:42→16:15)
[2017-04-02] MEDS: Z GUARD REMEDY 2 OZ OINT TP PRN ×2 (08:42→16:15)
[2017-04-02] MEDS: AMIODARONE HCL 200 MG TABLET PO SCH ×2 (08:43→21:00)
[2017-04-02 08:46] LABS: PLATELET COUNT (AUTO) 9 /CMM (150-450)
[2017-04-02] MEDS: MEROPENEM 500 MG in IV NS 0.9% 50 ML IV SCH ×2 (08:47→21:00)
--- NOTE | 2017-04-02 08:50 | NUR ---
ICU/RN: Dr Gamez at bedside. Abn labs discussed, pt platet count, pt anuric. Pt with period of desaturation in low 80's, placed on 100% FiO2, will titrate down as tolerated.
[2017-04-02 09:16] LABS: BAND % (MANUAL) 1 % (0.0-5.0); LYMPHOCYTES % (MANUAL) 4 % (16-48); MONOCYTES % (MANUAL) 7 % (0-11.0); NEUTROPHILS % (MANUAL) 88 (42-76)
[2017-04-02] MEDS ORDERED: FUROSEMIDE 40 MG/4 ML VIAL IV ONE (10:00)
--- NOTE | 2017-04-02 10:00 | NUR ---
ICU/RN: Dr Samra george, abn labs dw , pt anuric. Remains on Levophed at 15mcg/kg/min. New orders noted and carried out.
--- NOTE | 2017-04-02 11:15 | NUR ---
ICU/RN: Pt's daughter Susan at bedside. Explained that pt is gravely ill, with drop in platelets, now anuric, poor peripheral circulation. Per daughter, "my mom wouldn't want this, she would want to at home. I need to talk to my sister about this." Daughter requested family meeting with MD tomorrow, case supervisor Raad garcia and will coordinate meeting with MD once family members are available.
[2017-04-02] MEDS: NOREPINEPHRINE 16 MG in IV D5W 500 ML IV PRN ×2 (13:07→21:00)
[2017-04-02] MEDS: HYDROMORPHONE INJ 0.5 MG/0.5 ML SYRINGE IV PRN (13:07)
--- NOTE | 2017-04-02 15:00 | NUR ---
ICU/RN: Bed bath, wound care rendered. Large amount of soft dark green stool noted. Pt does not tolerate turning and repositioning with SPO2 dropping to mid 80's on 100% FIO2. Weeping edema noted on bilat upper extremities. HOB elevated per aspiration precautions.
[2017-04-02] MEDS: FIBERSOURCE HN 1,000 ML BOTTLE GT PRN (15:35)
[2017-04-02] MEDS: PANTOPRAZOLE 40 MG VIAL IV SCH (17:40)
--- NOTE | 2017-04-02 19:20 | NUR ---
ICU/RN: Pt in bed, intubated, tolerating current vent settings. No acute distress noted. IVF infusing at ordered rate. FC with 20cc urine noted from entire shift. Alarm sounds audible. Care endorsed to PM RN for REJI.
[2017-04-02] MEDS: IV NS 0.9% 100 ML BAG IV PRN (20:00)
[2017-04-02] MEDS: FLUCONAZOLE IN NS 100 MG in PREMIX 1 EA IV SCH ×2 (20:00)
--- NOTE | 2017-04-02 20:50 | NUR ---
THERMODYNAMICIST CALLED PHARMACY FOR REGLAN; OUT OF STOCK IN [employer] [facility].
[2017-04-02] MEDS: COLISTIMETHATE SODIUM 150 MG VIAL NEB SCH (21:00)
[2017-04-03] VITALS (102 sets, daily range): BP systolic 55–116; BP diastolic 27–74
--- NOTE | 2017-04-03 03:00 | NUR ---
DIRECTOR OF PUBLIC WORKS PT NOTED TO DESATURATE AND BECAME HYPOTENSIVE AFTER BED BATH. TITRATED LEVOPHED PER PROTOCOL. CONTINUE TO MONITOR.
[2017-04-03] MEDS: METOCLOPRAMIDE HCL 10 MG/2 ML VIAL IV SCH ×3 (05:00→20:12)
[2017-04-03 05:23] LABS: CALCIUM, SERUM 7.2 mg/dL (8.5-10.1); CARBON DIOXIDE 23 mmol/L (21-32); CHLORIDE 98 mmol/L (98-107); CREATININE 2.8 mg/dL (0.6-1.3); GLUCOSE 124 mg/dL (74-106); POTASSIUM 5.4 mmol/L (3.5-5.1); SODIUM SERUM 131 mmol/L (136-145)
[2017-04-03 05:25] LABS: UREA NITROGEN, BLOOD 117 mg/dL (7-18)
[2017-04-03] MEDS: [UNRECOGNIZED DRUG - OTHER] IV PRN ×2 (06:01→16:35)
[2017-04-03] MEDS: SODIUM BICARBONATE IV PRN ×2 (06:01→16:35)
--- NOTE | 2017-04-03 06:07 | NUR ---
RT PT RECEIVED ON [facility] VENT WITH NOTED SETTING. VENT TO RED OUTLET. AMBU BAG AT [facility]. BANKING AND FINANCE INSTRUCTOR DONE. ALARMS SET AND AUDIBLE. NO SOB OR RESP DISTRESS NO SHIFT. Addendum: 04/03/17 at 0608 by IVÁN CRUZ RT Amended: Links added.
--- NOTE | 2017-04-03 07:50 | NUR ---
ICU/RN PT IS INTUBATED ON THE VENT AC MODE.FIO2-65%.AFEBRILE.ON LEVOPHED DRIP.PT IS OFF SEDATION,REACTIVE ON TOUCH STIMULATION.RIGHT PICC LINE ON THE UPPER ARM. INFUSING WITH BICARB DRIP . F/C IN PLACE.PT IS ANURIC .GENERALIZED WEEPING EDEMA PRESENT.MULTIPLY BRUISES AND SKIN TEARS NOTED ALL OVER THE BODY.BLE AND BUE COLD AND BLUE.OG TUBE INFUSING WITH FIBERSOURCE AT 50 ML/HR ,20 ML RESIDUAL NOTED.SUCTION PROVIDED.ORAL BLOODY SECRETION NOTED.REDNESS ON ZACHARY AREA AND LOWER BACK NOTED,REPOSITION FOR COMFORT.
[2017-04-03] MEDS: Z GUARD REMEDY 2 OZ OINT TP PRN (08:19)
[2017-04-03] MEDS: AMIODARONE HCL 200 MG TABLET PO SCH ×2 (08:19→20:11)
[2017-04-03 08:57] LABS: BASOPHILS # (AUTO) 0.1 /CMM (0.0-0.2); BASOPHILS % (AUTO) 0.4 % (0.0-2.0); EOSINOPHILS # (AUTO) 0.1 /CMM (0.0-0.7); EOSINOPHILS % (AUTO) 0.3 % (0.0-6.0); HEMATOCRIT 24 % (33-45); HEMOGLOBIN 7.7 g/dL (11.5-14.8); LYMPHOCYTES # (AUTO) 1.1 /CMM (0.8-4.8); LYMPHOCYTES % (AUTO) 5.2 % (20.0-44.0); MEAN CORPUSCULAR HEMOGLOBIN 29 PG (26.0-33.0); MEAN CORPUSCULAR HGB CONC 33 g/dl (31.0-36.0); MEAN CORPUSCULAR VOLUME 88 fL (82-100); MONOCYTES # (AUTO) 0.2 /CMM (0.1-1.30); MONOCYTES % (AUTO) 0.8 % (2.0-12.0); NEUTROPHILS # (AUTO) 19.3 /CMM (1.8-8.9); NEUTROPHILS % (AUTO) 93.3 % (43.0-81.0); RDW COEFFICIENT OF VARIATION 19.6 (11.5-15.0); RED BLOOD CELL COUNT(AUTO) 2.69 MIL/uL (4.0-5.2); WHITE BLOOD COUNT (AUTO) 20.6 K/uL (4.3-11.0)
[2017-04-03] MEDS: COLISTIMETHATE SODIUM 150 MG VIAL NEB SCH ×2 (09:00→21:34)
[2017-04-03] MEDS: ACIDOPHILUS/BULGARICUS 1 EACH TAB.CHEW NG SCH ×3 (09:00→16:32)
[2017-04-03 09:04] LABS: PLATELET COUNT (AUTO) 8 /CMM (150-450)
[2017-04-03 09:43] LABS: ABG BASE EXCESS -2.1 mmol/L; ABG OXYGEN SATURATION 93.8 % (92.0-98.5); ABG PCO2 42.1 mmHg (35.0-45.0); ABG PO2 78.5 mmHg (75.0-100.0); AaDO2 339.2 mmHg; COHb 0.1 % (0.5-1.5); MetHb 0.6 % (0.0-1.5); O2Hb 93.1 % (94.0-97.0); SITE, ABG Left Brachial; VENT MODE, BG AC 24 600 65% +8
--- NOTE | 2017-04-03 10:00 | NUR ---
ICU/RN [id number].DR ROSEN NOTIFIED.
[2017-04-03 10:01] LABS: BAND % (MANUAL) 3 % (0.0-5.0); LYMPHOCYTES % (MANUAL) 4 % (16-48); MONOCYTES % (MANUAL) 4 % (0-11.0); MYELOCYTES % 3 % (0-0); NEUTROPHILS % (MANUAL) 86 (42-76)
[2017-04-03] MEDS: MEROPENEM 500 MG in IV NS 0.9% 50 ML IV SCH ×2 (10:10→21:11)
[2017-04-03] MEDS: PROSOURCE / PROSTAT (PYXIS) 30 ML UDC NG SCH ×2 (10:10→16:32)
[2017-04-03] MEDS: HYDROMORPHONE INJ 0.5 MG/0.5 ML SYRINGE IV PRN (10:51)
[2017-04-03] MEDS: NOREPINEPHRINE 16 MG in IV D5W 500 ML IV PRN ×2 (11:35→18:25)
[2017-04-03] MEDS: FIBERSOURCE HN 1,000 ML BOTTLE GT PRN (11:38)
--- NOTE | 2017-04-03 12:00 | NUR ---
ICU/RN PT IS ON MAXIMUM DOSE OF LEVOPHED.MD NOTIFIED. NEW ORDERS RECEIVED.
[2017-04-03] MEDS: PHENYLEPHRINE 80 MG in IV D5W 250 ML IV PRN ×2 (14:22→20:43)
--- NOTE | 2017-04-03 15:45 | NUR ---
ICU/PRESS MACHINE OPERATOR AT BEDSIDE,WOULD LIKE TO TALK TO MD. DR RAMOS TALK TO THE FAMILY ON THE PHONE.
[2017-04-03] MEDS: PANTOPRAZOLE 40 MG VIAL IV SCH (16:35)
--- NOTE | 2017-04-03 16:38 | NUR ---
ICU/RN PM CARE PROVIDED. WOUND DRESSING DONE ORDERED.DUE MEDS ARE GIVEN, REPOSITION FOR COMFORT.SUCTION PROVIDED.CONTINUE MONITORING.
--- NOTE | 2017-04-03 19:30 | NUR ---
RECYCLABLE MATERIALS SORTER: RECEIVED ORALLY INTUBATED PT WT VENT SETTINGS ORDERED. DEEP, LABORED AGONAL BREATHING NOTED AT 85% FIO2. PT IS DNR/DNI. OPENS EYES SPONTANEOUSLY BUT DOES NOT TRACK. NO EVIDENCE OF DISCOMFORT SUCH FACIAL GRIMACE. SR WT 1ST DEGREE AV BLOCK ON MANAGER RENEWABLE ENERGY AND IN AND OUT OF A. FIB AT TIMES. AFEBRILE. OGT RUNNING FIBERSOURCE HN AT 50ML/HR WT 40CC RESIDUAL. F/C PATENT AND INTACT WT 20 CC RICARDO COLORED URINE. WINTER PICC LINE INFUSING LEVOPHED AT 40MCG/MIN, NEOSYNEPHRINE AT 200MCG/MIN AND NA BICARB AT 75ML/HR. HOB AT 45 DEGREES. COMFORT MEASURES RENDERED. WILL CONTINUE TO MONITOR.
--- NOTE | 2017-04-03 19:34 | NUR ---
PT REC'D ORALLY INTUBATED VIA ETT #7.5, 20CM@LIP. PT ON NOTED [facility] VENT SETTINGS. NO RESP DISTRESS NOTED. ALARMS ARE SET AND AUDIBLE. VENT PLUGGED INTO RED OUTLET. WILL CONTINUE TO MONITOR. Addendum: 04/03/17 at 2036 by GENNARO CONNORS RT Amended: Links added.
[2017-04-03] MEDS: FLUCONAZOLE IN NS 100 MG in PREMIX 1 EA IV SCH ×2 (20:07)
[2017-04-03] MEDS ORDERED: DOPamine 400 MG/D5W 250 ML RTU PIGGYBACK IV PRN (21:00)
[2017-04-03] MEDS ORDERED: DOPamine 400 MG in IV D5W 250 ML IV PRN (21:00)
--- NOTE | 2017-04-03 21:00 | NUR ---
DESKTOP ENGINEER: PT. NOTED DESATURATING WT 02 SAT 86%. FIO2 INCREASED TO 100%. WILL CONTINUE TO MONITOR. UNABLE TO REPOSITION Q2H PT IS UNSTABLE.
--- NOTE | 2017-04-03 23:30 | NUR ---
DEALER RELATIONSHIP MANAGER: REMAINED 100% ON FI02 WT 02 SAT BET. 87%-95% AND ANURIC. WILL CONTINUE TO MONITOR.
[2017-04-04] VITALS (24 sets, daily range): BP systolic 41–115; BP diastolic 25–64
[2017-04-04] MEDS: NOREPINEPHRINE 16 MG in IV D5W 500 ML IV PRN (01:05)
[2017-04-04] MEDS: PHENYLEPHRINE 80 MG in IV D5W 250 ML IV PRN (02:18)
[2017-04-04] MEDS: HYDROMORPHONE INJ 0.5 MG/0.5 ML SYRINGE IV PRN ×2 (03:17→05:03)
--- NOTE | 2017-04-04 03:30 | NUR ---
SLASHER OPERATOR: PER CHARGE NURSE ED, CALLED AND NOTIFIED COLTEN ([place]) OF PT's WORSENING CONDITION MANIFESTED BY DESATURATION EVEN AT 100% FI02. NOW ON MAX. DOSE OF NEOSYNEPHRINE. FAMILY MEMBER SAID THEY WILL COME TO SEE PT. GIVEN DILAUDID FOR FACIAL GRIMACE. WILL CONTINUE TO MONITOR.
--- NOTE | 2017-04-04 04:40 | NUR ---
SECURITY FLEX OFFICER: FAMILY AT BEDSIDE AND REQUESTED FOR COMFORT MEASURES ONLY. DR. TAO AGREED VIA PHONE CALL AND ORDERED TO DC ALL MEDS, TX AND LABS EXCEPT ATIVAN, DILAUDID AND KEEP ON VENTILATOR PER FAMILY REQUEST.
[2017-04-04] MEDS: IV NS 0.9% 100 ML BAG IV PRN (04:46)
--- NOTE | 2017-04-04 06:37 | NUR ---
RAIL SIGNAL MECHANIC: NOTED ASYSTOLE ON THE MONITOR. UNABLE TO APPRECIATE BP AND PULSE. PRONOUNCED BY CHARGE NURSE ED.
--- NOTE | 2017-04-04 06:40 | NUR ---
TAX ACCOUNTANT: NURSING SOAP MIXER BERNICE BAIG FROM ER AND DR. TAO MADE AWARE THAT PT . POST MORTEM CARE RENDERED. FAMILY MADE AWARE.
--- NOTE | 2017-04-04 06:44 | NUR ---
DIE DRAWING CHECKER: CALLED [facility] AND SPOKE WT OSE AND REPORTED . CASE CLOSED PER OSE AND WT CASE [id number].
--- NOTE | 2017-04-04 06:50 | NUR ---
IMAGING SPECIALIST: CALLED MS. HOLDER FROM SKILLS TRAINER'S OFFICE TO REPORT . SHE SAID TO CALL BACK IF CAUSE OF IS D/T HIP FRACTURE/SURGERY.
--- NOTE | 2017-04-04 07:15 | NUR ---
ASSOCIATE TEAM PHYSICIAN: FAMILY AT BEDSIDE. ENDORSED REMAINS TO DAY SHIFT CHARGE NURSE AMANDA.
--- NOTE | 2017-04-04 07:15 | NUR ---
MET WITH FAMILY AND PROVIDED EMOTIONAL SUPPORT AND ASSISTANCE WITH MORTUARY. PER DR PRATHER PT NOT CORONERS CASE
--- NOTE | 2017-04-04 07:25 | NUR ---
FLOWER POT PRESS OPERATOR: CONFIRMED WT DAY SHIFT CHARGE NURSE AND DR. PRATHER THAT CAUSE OF IS NOT D/T RECENT HIP FRACTURE OR LEFT HIP SURGERY. NO NEED TO CALL BACK HVAC SALES ENGINEER'S OFFICE.
--- NOTE | 2017-04-04 08:23 | NUR ---
BODY TO [facility]
== END 2017-04-04 06:37 | disposition expired | DRG 870 ==
LOC: ER 11:03 → ICU 12:56
PROVIDERS: ADMIT Internal Medicine; ATTEND Internal Medicine
PROC: 5A1955Z Respiratory Ventilation, Greater than 96 Consecutive Hours (ICD-10-PCS; principal; 2017-03-14)
PROC: 0BH17EZ Insertion of Endotracheal Airway into Trachea, Via Natural or Artificial Opening (ICD-10-PCS; 2017-03-14)
PROC: 02HV33Z Insertion of Infusion Device into Superior Vena Cava, Percutaneous Approach (ICD-10-PCS; 2017-03-14)
PROC: B548ZZA Ultrasonography of Superior Vena Cava, Guidance (ICD-10-PCS; 2017-03-14)
PROC: 30233N1 Transfusion of Nonautologous Red Blood Cells into Peripheral Vein, Percutaneous Approach (ICD-10-PCS; 2017-03-27)
DX: A41.9 Sepsis, unspecified organism (principal); I21.A1 Myocardial infarction type 2; N17.0 Acute kidney failure with tubular necrosis; J90 Pleural effusion, not elsewhere classified; J14 Pneumonia due to Hemophilus influenzae; J15.0 Pneumonia due to Klebsiella pneumoniae; J15.8 Pneumonia due to other specified bacteria; J96.01 Acute respiratory failure with hypoxia; J18.9 Pneumonia, unspecified organism; J96.02 Acute respiratory failure with hypercapnia; R65.21 Severe sepsis with septic shock; D68.9 Coagulation defect, unspecified; B37.49 Other urogenital candidiasis; E87.2 Acidosis; E87.1 Hypo-osmolality and hyponatremia; E11.65 Type 2 diabetes mellitus with hyperglycemia; I48.91 Unspecified atrial fibrillation; D63.8 Anemia in other chronic diseases classified elsewhere; M06.9 Rheumatoid arthritis, unspecified; I10 Essential (primary) hypertension; M19.90 Unspecified osteoarthritis, unspecified site; Z96.642 Presence of left artificial hip joint; Z91.81 History of falling; Z79.899 Other long term (current) drug therapy; Z79.01 Long term (current) use of anticoagulants; Z66 Do not resuscitate; Z51.5 Encounter for palliative care; E83.42 Hypomagnesemia; E04.1 Nontoxic single thyroid nodule; M85.9 Disorder of bone density and structure, unspecified; T39.395A Adverse effect of other nonsteroidal anti-inflammatory drugs [NSAID], initial encounter; Y92.129 Unspecified place in nursing home as the place of occurrence of the external cause; L30.4 Erythema intertrigo; Y95 Nosocomial condition; R53.81 Other malaise; K80.20 Calculus of gallbladder without cholecystitis without obstruction; T45.1X5A Adverse effect of antineoplastic and immunosuppressive drugs, initial encounter; D89.9 Disorder involving the immune mechanism, unspecified; M85.80 Other specified disorders of bone density and structure, unspecified site; I25.10 Atherosclerotic heart disease of native coronary artery without angina pectoris; E86.1 Hypovolemia; D69.6 Thrombocytopenia, unspecified; E87.5 Hyperkalemia; K76.0 Fatty (change of) liver, not elsewhere classified; I70.0 Atherosclerosis of aorta; R34 Anuria and oliguria; I25.2 Old myocardial infarction
CPT/HCPCS: 31720; 36415; 36600; 70450-TC; 71045-TC; 73020; 80048-TC; 80053-TC; 80076-TC; 80202-TC; 81000-TC; 82248-TC; 82272-TC; 82803-TC; 82962-TC; 83605-TC; 83735-TC; 83880; 84100-TC; 84439-TC; 84443-TC; 84484-TC; 85025-TC; 85027-TC; 85730-TC; 86850-TC; 86921-TC; 87040-TC; 87070-TC; 87081-TC; 87086-TC; 87186-TC; 87400; 93307-TC; 93970-TC; 94002-TC; 94003-TC; 94760-TC; 94762-TC; A4216; A4606; A6253; A6402; C1751; C9113; J0330; J0456; J0692; J0770; J1170; J1265; J1450; J1940; J1956; J2060; J2185; J2248; J2370; J2543; J2765; J3370; J3475; J3490; J7030; J7040; J7042; J7050; J7060; J7120; P9016-BL; P9047; Q9967; Z7610